=== PATIENT | female | born 1930 | race Caucasian/White ===

== ENCOUNTER 2017-01-15 18:45 | Inpatient (IN) ==
[2017-01-15] MEDS ORDERED: SALINE FLUSH 10ml SYRINGE IVF PRN (19:12)
--- OUTSIDE RECORDS SUMMARY | 2017-01-15 20:00 | External Medical Summary | Referral Summary ---
:1930 Author Organization [facility] Address [address] [place] [address] Care Team Providers Name Role Phone Quita Schwab Primary Care Physician Encounter [facility] [phone] Date(s): 04/30/16 - 04/30/16 [facility] [address] [place], [place] [address] Final: Dyspnea, unspecified Final: Chronic obstructive pulmonary disease, unspecified Final: Other specified deforming dorsopathies, thoracic region Discharge Disposition: 01-Home or Self Care Attending Physician: Quita Schwab DO Admitting Physician: Quita Schwab DO Vital Signs No data available for this section Problem List No data available for this section Allergies, Adverse Reactions, Alerts No data available for this section Medications No data available for this section Results No data available for this section Immunizations No data available for this section Procedures No data available for this section Social History No data available for this section Assessment and Plan No data available for this section
--- OUTSIDE RECORDS SUMMARY | 2017-01-15 20:00 | External Medical Summary | Referral Summary ---
:1930 Author Organization [facility] Address [address] [place] [address] Care Team Providers Name Role Phone Quita Schwab Primary Care Physician Encounter [facility] Date(s): 09/26/16 - 09/26/16 [facility] [address] [place] [id number] - [place] Discharge Diagnosis: Chest wall pain Discharge Disposition: 01-Home or Self Care Attending Physician: Sandra Edwards MD Attending Physician: Provider, Immediate Care Admitting Physician: Provider, Immediate Care Vital Signs Most recent to oldest [Reference Range]: 1 Temperature Oral [35.8-37.3 degC] 36.6 degC (09/26/16 1:38 PM) Peripheral Pulse Rate [60-100 bpm] 112 bpm *HI* (09/26/16 1:38 PM) Blood Pressure [90-140/60-90 mmHg] 120/68mmHg (09/26/16 1:38 PM) SpO2 95 % (09/26/16 1:38 PM) Problem List No data available for this section Allergies, Adverse Reactions, Alerts No Known Medication Allergies Medications amLODIPine Oral, Daily, 0 Refill(s) Start Date: 09/26/16 Status: OrderedAnoro Ellipta puffs, Inhalation, Daily, 0 Refill(s) Start Date: 09/26/16 Status: OrderedAspir 81 mg, Oral, Daily, 0 Refill(s) Start Date: 09/26/16 Status: OrderedCeleBREX Oral, 0 Refill(s) Start Date: 09/26/16 Status: Orderedhydrochlorothiazide Oral, Daily, 0 Refill(s) Start Date: 09/26/16 Status: OrderedVitamin D with Minerals oral tablet tabs, Oral, Daily, 0 Refill(s) Start Date: 09/26/16 Status: Ordered Results No data available for this section Immunizations No data available for this section Procedures No data available for this section Social History Social History Type Response Smoking Status Never smoker Assessment and Plan Extracted from: Title:Office Visit Note Author:Sandra Edwards MD Date:09/26/16 Assessment/Plan 1.Chest wall pain Radiology Results XR Chest 2 Views 09/26/16 17:19:35 IMPRESSION: 1. Chronic changes throughout the lungs with emphysematous disease also noted. 2. Possible atelectasis in the mid lungs with tiny effusions also noted better seen on the lateral views. Dictated on workstation:[id number] Signed By: Della Shell MD Results discussed with patient, she was verbally understanding,symptomatic treatment is recommended,she was given prescription of Celebrex by her PCP, she is to start taking it to be used as directed Diagnosis and plan discussed with patient, was verbally understanding, agreeable about the plan of care, patient was discharged in stable condition, to go to the emergency room of there is worsenin g signs and symptoms otherwise follow-up with PCP in 1-2 days, questions has been answered. Ordered: Office Visit Level 3 Est [id number]
--- NOTE | 2017-01-15 20:27 | Emergency Department Report ---
Psych HPI - General Chief Complaint: Psychiatric Symptoms Stated Complaint: Psych Eval Time Seen by Provider: 01/15/17 20:23 Source: patient Mode of arrival: wheelchair Limitations: no limitations - History of Present Illness HPI Narrative: She arrives to Er today with her family. Is here for medical clearance for generation admission. She had surgery on 10/23/16 for mitro clip placement. Had returned to her own home but was re-hospitalized on 12/18/16. Was send from the hospital where she had a thoracentesis to a skilled bed at [facility] on 01/08/17. Has had increasing agitation and some visual hallucinations. Has made 911 calls and falsely reporting that her daughter was in danger. Per records sent with patient she walked into the hallway yesterday and was very agitated. Laid down on the floor and then refused to move. MD complaint: altered mental status Onset (ago): week(s) Duration: getting worse Prior Hospitalization: Yes Relieving factors: none Exacerbating factors: none Associated psychiatric symptoms: other (agitation) Associated symptoms: confusion Treatments prior to arrival: none - Related Data Home Medications Medication Instructions Recorded Confirmed Acetaminophen 650 mg PO Q4H PRN 01/15/17 01/15/17 Albuterol/Ipratropium [Duoneb] 3 ml IH BID 01/15/17 01/15/17 Albuterol/Ipratropium [Duoneb] 3 ml IH Q2H PRN 01/15/17 01/15/17 Apixaban [Eliquis] 2.5 mg PO BID 01/15/17 01/15/17 Aspirin [Aspirin EC] 81 mg PO DAILY 01/15/17 01/15/17 Benzonatate [Tessalon Perles] 100 mg PO BID 01/15/17 01/15/17 Bisacodyl Supp [Dulcolax] 10 mg RECTALLY DAILY PRN 01/15/17 01/15/17 Cholecalciferol [Vitamin D-3] 1,000 unit PO DAILY 01/15/17 01/15/17 Docusate Sodium [Colace] 100 mg PO BID 01/15/17 01/15/17 Ferrous Sulfate [Iron] 325 mg PO BID 01/15/17 01/15/17 Furosemide [Lasix] 60 mg PO DAILY 01/15/17 01/15/17 Megestrol Oral Liq [Megace] 20 ml PO DAILY 01/15/17 01/15/17 Melatonin 3 mg PO HS 01/15/17 01/15/17 Milk of Magnesia [Mom] 30 ml PO PRN PRN 01/15/17 01/15/17 Omeprazole [Prilosec] 1 cap PO ACB 01/15/17 01/15/17 Pantoprazole Sodium [Protonix] 40 mg PO DAILY 01/15/17 01/15/17 Polyethylene Glycol 3350 [Miralax] 17 gm PO DAILY 01/15/17 01/15/17 Potassium Chloride 20 meq PO BID 01/15/17 01/15/17 Quetiapine [Seroquel] 12.5 mg PO BID 01/15/17 01/15/17 Quetiapine [Seroquel] 12.5 mg PO DAILY 01/15/17 01/15/17 Quetiapine [Seroquel] 25 mg PO HS 01/15/17 01/15/17 Trolamine Salicylate 10% Cream 1 applic TOP Q8H PRN 01/15/17 01/15/17 [Aspercreme] acetaZOLAMIDE [Acetazolamide] 500 mg PO DAILY 01/15/17 01/15/17 dilTIAZem HCl [Diltiazem ER] 180 mg PO DAILY 01/15/17 01/15/17 guaiFENesin [Mucinex] 600 mg PO BID 01/15/17 01/15/17 Allergies Allergy/AdvReac Type Severity Reaction Status Date / Time No Known Allergies Allergy Verified 01/15/17 20:20 Review of Systems Constitutional: Denies: fever, chills, weakness, weight change ENT: Denies: ear pain, throat pain, congestion Cardiovascular: Denies: chest pain, palpitations, dyspnea on exertion, edema Respiratory: Denies: cough, dyspnea, wheezes Gastrointestinal: Denies: abdominal pain, nausea, vomiting, diarrhea, constipation Neurological: Denies: headache, weakness, numbness PFSH Patient Stated Medical History Transient Ischemic Attacks ( INCREASING CONFUSION TIA) Other Neurological: Yes Cataracts Yes: REPAIRED Other HEENT Yes: BLIND R EYE Cardiac Arrhythmia Yes Congestive Heart Failure Yes Chronic Obstructive Pulmonary Yes Disease (COPD) Hiatal Hernia Yes Other GI Yes: SLOW ESOPHAGEAL MOTILITY Osteoarthritis Yes Other Infectious Yes: HEP B 1980 atrial fibrillation osteoporosis HTN hyperlipidemia chronic hypoxia and hypercapnic resp failure Hepatitis B Diastolic HF Esophageal dysmotility Surgical History: Bilateral femur fracture repair. cholecystectomy. total hysterectomy. breast lumpectomy. mitraclip x2 on 11/27/2016. Right thoracentesis on 12/28/16. right 5th finger surgery Smoking status: Never smoker Physical Exam - Limitations Limitations: altered mental status, other (History is taken from her daughter) - General General appearance: alert, in no apparent distress - Normal Exams: Eyes:: Pupils are PERRLA w/ EOMI, No scleral icterus, irritation, or foreign bodies noted ENMT:: No facial trauma, nasal exudates, pharyngeal erythema, or exudates are noted Neck:: Full range of motion, without adenopathy, JVD, bruits or thyromegaly Chest/Respirations:: Clear all tamayo, with good airflow, and symmetry bilaterally Cardiovascular:: Regular rate and rhythm, without murmur or gallop, Pulses 2+ all extremities, capillary refill, <2 seconds all extremities Abdomen:: Bowel sounds positive, soft, non-tender, non-distended, no hepatosplenomegaly, masses or bruits noted Lymphatic:: No lymphadenopathy, or lymphedema noted Integumentary:: No rashes, hives, or bruising noted Neurological:: Patient is alert Psychiatric:: Patient exhibits, appropriate attention, emotion and affect Course Vital Signs Temperature 98.4 F 01/15/17 19:00 Pulse Rate 94 01/15/17 19:00 Respiratory Rate 16 01/15/17 19:00 Blood Pressure 112/65 01/15/17 19:00 Temperature 98.4 F 01/15/17 19:00 Pulse Rate 89 01/15/17 20:32 Respiratory Rate 16 01/15/17 19:00 Blood Pressure 99/55 01/15/17 20:33 Pulse Oximetry 95 01/15/17 20:32 Psych - MDM Narrative Medical decision making narrative: CBC, BMP, UA, and UDS today are normal. EKG without ST changes. Noted atrial fibrillation, she does have history of this and is on Eliquis. Patient is medically cleared for [facility] unit. - Differential Diagnosis Likely: chronic schizophrenia, depression, acute anxiety - Lab Data Attestation: I reviewed the patient's lab results. Result diagrams: 01/15/17 19:33 01/15/17 19:33 Lab Results 01/15/17 01/15/17 01/15/17 Range/Units 19:33 19:33 19:33 WBC 11.2 H (4.5-11.0) T/MM3 RBC 3.26 L (4.00-5.20) M/MM3 Hgb 9.7 L (12-16) GM/DL Hct 33.3 L (36-46) % MCV 102.1 H (80-100) UM3 MCH 29.8 (26-34) UUG MCHC 29.1 L (31-37) GM/DL RDW Std Deviation 60.1 H (36.9-50.2) FL Plt Count 308 (130-400) T/MM3 MPV 10.6 (9.4-12.4) UM3 Immature Gran % (Auto) 0.3 (0.0-0.5) % Neut % (Auto) 81.7 H (33-66) % Lymph % (Auto) 9.0 L (23-45) % Elk % (Auto) 7.5 (0-9.0) % Eos % (Auto) 1.1 (0-4) % Baso % (Auto) 0.4 (0-2) % Neut # 9.2 H (1.8-7.7) T/MM3 Lymph # 1.0 (1-4.8) T/MM3 Elk # 0.8 (0-0.8) T/MM3 Eos # 0.1 (0-0.5) T/MM3 Baso # 0.0 (0-0.2) T/MM3 Abs Immat Gran (auto) 0.03 (0.00-0.03) T/MM3 Turbidity 20 (0-20) Sodium 143 (134-144) MEQ/L Potassium 3.7 (3.6-5) MEQ/L Chloride 102 (98-107) MEQ/L Carbon Dioxide 28 (22-30) MEQ/L Anion Gap 13 (5-15) MEQ/L BUN 35.0 H (7-17) MG/DL Creatinine 1.4 H (0.7-1.2) MG/DL GFR Calculation 36 BUN/Creatinine Ratio 25 (6-26) RATIO Glucose 114 H (65-110) MG/DL Calculated Osmolality 284 H (261-280) MOSM/KG Calcium 8.7 (8.4-10.2) MG/DL Total Bilirubin 0.30 (0.20-1.30) MG/DL Icterus Index 2 (0-7) AST 24 (14-36) U/L ALT 40 (9-52) U/L Alkaline Phosphatase 72 (38-126) U/L Total Protein 6.6 (6.3-8.2) G/DL Albumin 3.9 (3.5-5.0) G/DL Globulin 2.7 (2.4-3.6) G/DL Albumin/Globulin Ratio 1.4 (1.1-2.2) RATIO Specimen Hemolysis 15 (0-25) Ur Collection Type Urine, clean catch Urine Color Yellow (YELLOW) Urine Clarity Clear Urine pH 7.0 (5.0-8.0) Ur Specific [place] 1.010 L (1.015-1.025) Urine Protein Negative (NEGATIVE) Urine Glucose (UA) Negative (NEGATIVE) Urine Ketones Negative (NEGATIVE) Urine Occult Blood Negative (NEGATIVE) Urine Nitrate Negative (NEGATIVE) Urine Bilirubin Negative (NEGATIVE) Urine Urobilinogen 1.0 (NORMAL) EU/DL Ur Leukocyte Esterase Trace A (NEGATIVE) Urinalysis Comment Microscopic not ind. Salicylates < 1 L (2-20) MG/DL Urine Opiates Screen ng/mL Ur Oxycodone Screen ng/mL Urine Methadone Screen ng/mL Ur Propoxyphene Screen ng/mL Acetaminophen < 10 Ur Barbiturates Screen ng/mL U Tricyclic Antidepress ng/mL Ur Phencyclidine Scrn ng/mL Ur Amphetamines Screen ng/mL U Methamphetamines Scrn ng/mL U Benzodiazepines Scrn ng/mL Urine Cocaine Screen ng/mL U Cannabinoids Screen ng/mL Ethyl Alcohol < 10 01/15/17 Range/Units 19:33 WBC (4.5-11.0) T/MM3 RBC (4.00-5.20) M/MM3 Hgb (12-16) GM/DL Hct (36-46) % MCV (80-100) UM3 MCH (26-34) UUG MCHC (31-37) GM/DL RDW Std Deviation (36.9-50.2) FL Plt Count (130-400) T/MM3 MPV (9.4-12.4) UM3 Immature Gran % (Auto) (0.0-0.5) % Neut % (Auto) (33-66) % Lymph % (Auto) (23-45) % Elk % (Auto) (0-9.0) % Eos % (Auto) (0-4) % Baso % (Auto) (0-2) % Neut # (1.8-7.7) T/MM3 Lymph # (1-4.8) T/MM3 Elk # (0-0.8) T/MM3 Eos # (0-0.5) T/MM3 Baso # (0-0.2) T/MM3 Abs Immat Gran (auto) (0.00-0.03) T/MM3 Turbidity (0-20) Sodium (134-144) MEQ/L Potassium (3.6-5) MEQ/L Chloride (98-107) MEQ/L Carbon Dioxide (22-30) MEQ/L Anion Gap (5-15) MEQ/L BUN (7-17) MG/DL Creatinine (0.7-1.2) MG/DL GFR Calculation BUN/Creatinine Ratio (6-26) RATIO Glucose (65-110) MG/DL Calculated Osmolality (261-280) MOSM/KG Calcium (8.4-10.2) MG/DL Total Bilirubin (0.20-1.30) MG/DL Icterus Index (0-7) AST (14-36) U/L ALT (9-52) U/L Alkaline Phosphatase (38-126) U/L Total Protein (6.3-8.2) G/DL Albumin (3.5-5.0) G/DL Globulin (2.4-3.6) G/DL Albumin/Globulin Ratio (1.1-2.2) RATIO Specimen Hemolysis (0-25) Ur Collection Type Urine Color (YELLOW) Urine Clarity Urine pH (5.0-8.0) Ur Specific [place] (1.015-1.025) Urine Protein (NEGATIVE) Urine Glucose (UA) (NEGATIVE) Urine Ketones (NEGATIVE) Urine Occult Blood (NEGATIVE) Urine Nitrate (NEGATIVE) Urine Bilirubin (NEGATIVE) Urine Urobilinogen (NORMAL) EU/DL Ur Leukocyte Esterase (NEGATIVE) Urinalysis Comment Salicylates (2-20) MG/DL Urine Opiates Screen Negative ng/mL Ur Oxycodone Screen Negative ng/mL Urine Methadone Screen Negative ng/mL Ur Propoxyphene Screen Negative ng/mL Acetaminophen Ur Barbiturates Screen Negative ng/mL U Tricyclic Antidepress Positive ng/mL Ur Phencyclidine Scrn Negative ng/mL Ur Amphetamines Screen Negative ng/mL U Methamphetamines Scrn Negative ng/mL U Benzodiazepines Scrn Negative ng/mL Urine Cocaine Screen Negative ng/mL U Cannabinoids Screen Negative ng/mL Ethyl Alcohol Disposition Clinical Impression: Dementia with behavioral disturbance Qualifiers: Dementia type: unspecified type Qualified Code(s): F03.91 - Unspecified dementia with behavioral disturbance Disposition: 65 To [facility] Condition: Stable Prescriptions: No Action acetaZOLAMIDE [Acetazolamide] 500 mg PO DAILY dilTIAZem HCl [Diltiazem ER] 180 mg PO DAILY Furosemide [Lasix] 60 mg PO DAILY Omeprazole [Prilosec] 1 cap PO ACB Megestrol Oral Liq [Megace] 20 ml PO DAILY Polyethylene Glycol 3350 [Miralax] 17 gm PO DAILY Pantoprazole Sodium [Protonix] 40 mg PO DAILY Quetiapine [Seroquel] 25 mg PO HS Albuterol/Ipratropium [Duoneb] 3 ml IH BID Docusate Sodium [Colace] 100 mg PO BID Apixaban [Eliquis] 2.5 mg PO BID Cholecalciferol [Vitamin D-3] 1,000 unit PO DAILY Potassium Chloride 20 meq PO BID Quetiapine [Seroquel] 12.5 mg PO BID Benzonatate [Tessalon Perles] 100 mg PO BID Trolamine Salicylate 10% Cream [Aspercreme] 1 applic TOP Q8H PRN PRN Reason: Pain Albuterol/Ipratropium [Duoneb] 3 ml IH Q2H PRN PRN Reason: Shortness Of Air Melatonin 3 mg PO HS Acetaminophen 650 mg PO Q4H PRN PRN Reason: Pain Aspirin [Aspirin EC] 81 mg PO DAILY Quetiapine [Seroquel] 12.5 mg PO DAILY Ferrous Sulfate [Iron] 325 mg PO BID guaiFENesin [Mucinex] 600 mg PO BID Bisacodyl Supp [Dulcolax] 10 mg RECTALLY DAILY PRN PRN Reason: Constipation Milk of Magnesia [Mom] 30 ml PO PRN PRN PRN Reason: Constipation Time of Disposition: 20:44 - Seen By: tamera
[2017-01-15] MEDS ORDERED: HALOPERIDOL 5 MG/ML INJECTION IM PRN (22:18)
[2017-01-15] MEDS ORDERED: HALOPERIDOL 0.5 MG TABLET PO PRN (22:18)
[2017-01-15] MEDS ORDERED: IPRATROPIUM/ALBUTEROL 2.5mg-0.5mg/3ml NEB IH PRN (22:47)
[2017-01-15] MEDS ORDERED: BISACODYL 10 MG SUPPOSITORY RECTALLY PRN (22:47)
[2017-01-15] MEDS ORDERED: ACETAMINOPHEN 325 MG TABLET PO PRN (22:47)
[2017-01-16] MEDS: OMEPRAZOLE 20 MG CAPSULE PO SCH (05:52)
[2017-01-16] MEDS: FUROSEMIDE 40 MG TABLET PO SCH (08:10)
[2017-01-16] MEDS: DOCUSATE SODIUM 100 MG CAPSULE PO SCH ×2 (08:10→21:12)
[2017-01-16] MEDS: acetaZOLAMIDE SR 500 MG CAPSULE PO SCH (08:11)
[2017-01-16] MEDS: ASPIRIN *EC* 81 MG TABLET PO SCH (08:11)
[2017-01-16] MEDS: APIXABAN 5 MG TABLET PO SCH ×2 (08:11→21:14)
[2017-01-16] MEDS: BENZONATATE 100 MG CAPSULE PO SCH ×2 (08:11→21:12)
[2017-01-16] MEDS: FERROUS SULFATE 324 MG TABLET PO SCH ×2 (08:12→17:12)
[2017-01-16] MEDS: GUAIFENESIN LA 600 MG TABLET PO SCH ×2 (08:12→21:15)
[2017-01-16] MEDS: QUETIAPINE 25 MG TABLET PO SCH ×2 (08:13→21:18)
[2017-01-16] MEDS: POLYETHYL GLYCOL 3350 17gm PACKET PO SCH (08:13)
[2017-01-16] MEDS: IPRATROPIUM/ALBUTEROL 2.5mg-0.5mg/3ml NEB IH SCH ×2 (08:43→19:43)
[2017-01-16] MEDS ORDERED: MEGESTROL 800mg/20ml ORAL LIQUID PO SCH (09:00)
--- NOTE | 2017-01-16 09:34 | History & Physical Report ---
<Cat Harrison V - Last Filed: 01/16/17 09:25> History of Present Illness Date: Chief complaint: major cognitive disorder, increase behaviors and hallucinations HPI: Patient is an 86-year-old female who underwent Joshua clip placement, October 23, 2016. Following this procedure, she did return to her home independently. In December she was ill and hospitalized at [facility] with what appears to be diastolic heart failure and pleural effusions. She did undergo thoracentesis. Total hospitalization was December 18 through December 23. At time of discharge, patient was sent to [facility]. Since that time she has displayed increased confusion, uncooperative and argumentative. She has called 911 multiple times and also called multiple food safety technician attorneys when given a phone book. Due to her increasing hallucinations and agitation. She was brought to [facility] emergency room for medical clearance followed by accepted to the generations unit for further psychiatric evaluation and treatment Review of Systems All systems: reviewed and no additional remarkable complaints except as stated Review of systems: Only positive ROS include- "feeling tired". Otherwise she denies all ROS. Unknown if this is accurate due to mentation - Constitutional Constitutional: Present: fatigue PFSH Patient Stated Medical History hx- Transient Ischemic Attacks Diastolic heart failure, EF 65%, echocardiogram 01/03/17 Chronic atrial fibrillation with chronic anticoagulation. Hypertension hyperlipidemia Chronic hypoxia on oxygen and CPAP COPD Osteoarthritis. Hiatal hernia. History of hepatitis B-1979 Surgical History: Bilateral femur fracture repair. cholecystectomy. total hysterectomy. breast lumpectomy. mitraclip x2 on 11/27/2016. Right thoracentesis on 12/28/16. right 5th finger surgery. Right thoracentesis- Dr. Witt Smoking status: Former smoker Housing: halfway Social history: PCP Dr Powell ([place]) [employer]ist Dr. Booth- Follow up apt on 01/27 Medications Home Medications Medication Instructions Recorded Confirmed Type Acetaminophen 650 mg PO Q4H PRN 01/15/17 01/15/17 History Albuterol/Ipratropium [Duoneb] 3 ml IH BID 01/15/17 01/15/17 History Albuterol/Ipratropium [Duoneb] 3 ml IH Q2H PRN 01/15/17 01/15/17 History Apixaban [Eliquis] 2.5 mg PO BID 01/15/17 01/15/17 History Aspirin [Aspirin EC] 81 mg PO DAILY 01/15/17 01/15/17 History Benzonatate [Tessalon Perles] 100 mg PO BID 01/15/17 01/15/17 History Bisacodyl Supp [Dulcolax] 10 mg RECTALLY DAILY PRN 01/15/17 01/15/17 History Cholecalciferol [Vitamin D-3] 1,000 unit PO DAILY 01/15/17 01/15/17 History Docusate Sodium [Colace] 100 mg PO BID 01/15/17 01/15/17 History Ferrous Sulfate [Iron] 325 mg PO BID 01/15/17 01/15/17 History Furosemide [Lasix] 60 mg PO DAILY 01/15/17 01/15/17 History Megestrol Oral Liq [Megace] 20 ml PO DAILY 01/15/17 01/15/17 History Melatonin 3 mg PO HS 01/15/17 01/15/17 History Milk of Magnesia [Mom] 30 ml PO PRN PRN 01/15/17 01/15/17 History Omeprazole [Prilosec] 1 cap PO ACB 01/15/17 01/15/17 History Pantoprazole Sodium [Protonix] 40 mg PO DAILY 01/15/17 01/15/17 History Polyethylene Glycol 3350 [Miralax] 17 gm PO DAILY 01/15/17 01/15/17 History Potassium Chloride 20 meq PO BID 01/15/17 01/15/17 History Quetiapine [Seroquel] 12.5 mg PO BID 01/15/17 01/15/17 History Quetiapine [Seroquel] 12.5 mg PO DAILY 01/15/17 01/15/17 History Quetiapine [Seroquel] 25 mg PO HS 01/15/17 01/15/17 History Trolamine Salicylate 10% Cream 1 applic TOP Q8H PRN 01/15/17 01/15/17 History [Aspercreme] acetaZOLAMIDE [Acetazolamide] 500 mg PO DAILY 01/15/17 01/15/17 History dilTIAZem HCl [Diltiazem ER] 180 mg PO DAILY 01/15/17 01/15/17 History guaiFENesin [Mucinex] 600 mg PO BID 01/15/17 01/15/17 History Allergies Allergy/AdvReac Type Severity Reaction Status Date / Time No Known Allergies Allergy Verified 01/15/17 20:20 Exam Vital Signs: Temp Pulse Resp BP Pulse Ox 98.8 F 109 H 18 122/75 100 01/16/17 08:00 01/16/17 08:00 01/16/17 08:00 01/16/17 08:00 01/16/17 08:00 Height: 1.47 m Weight: 47.5 kg Body Mass Index: 21.9 - Constitutional Present: no acute distress - Routine HEENT Exam Eye: Present: EOMI, PERRL ENT: Present: mucous membranes moist - Routine Neck Exam Present: full ROM - Routine Respiratory Exam Present: CTA bilaterally - Routine Cardiovascular Exam Present: RRR, S1, S2 - Routine Abdominal Exam Present: soft, normoactive bowel sounds - Routine Back/Spine/Pelvis Exam Back/Spine: Present: full ROM - Routine Skin Exam Present: intact - Routine Neurological Exam Present: alert, CN II-XII intact - Routine Psychiatric Exam Present: normal affect Results - Labs CBC & Chem 7: 01/15/17 19:33 01/15/17 19:33 Assessment and Plan (1) Neurocognitive disorder Current visit: Yes Status: Acute (2) Hx of pleural effusion Current visit: Yes Status: Acute (3) Coronary artery disease Current visit: Yes Status: Acute (4) A-fib Current visit: Yes Status: Acute (5) Chronic anticoagulation Current visit: Yes Status: Acute (6) Diastolic heart failure Current visit: Yes Status: Acute (7) Anemia Current visit: Yes Status: Acute (8) Mitral regurgitation Current visit: Yes Status: Acute (9) HTN (hypertension) Current visit: Yes Status: Acute Assessment and Plan: Agree with admission to [facility] unit for further psychiatric evaluation and treatment. Continue on chronic oxygen at 4 liters by nasal cannula as well as CPAP at night. Continue with scheduled DuoNeb breathing treatments twice a day Chronic cardiac medications including Lasix 60 milligrams daily, Cardizem 180 milligrams daily Continue chronic anticoagulation, Eliquis 2.5 milligrams twice a day Encourage patient to participate in unit activities and provide a safe environment. Sepsis Assessment - Evaluation Sepsis screening result: No Definite Risk - Focused Exam Vital Signs Temp Pulse Resp BP Pulse Ox 01/16/17 08:00 98.8 F 109 H 18 122/75 100 01/15/17 23:20 98.0 F 90 16 87 L 01/15/17 21:44 98.0 F 95 20 136/73 96 Hospital Course Summary Disclaimer: The visit summary below is not to be considered part of the above Progress Note. Hospital Course: 01/16/17 09:56 Agree with admission to [facility] unit for further psychiatric evaluation and treatment. Continue on chronic oxygen at 4 liters by nasal cannula as well as CPAP at night. Continue with scheduled DuoNeb breathing treatments twice a day Chronic cardiac medications including Lasix 60 milligrams daily, Cardizem 180 milligrams daily Continue chronic anticoagulation, Eliquis 2.5 milligrams twice a day Encourage patient to participate in unit activities and provide a safe environment. <Stefano Mtz - Last Filed: 01/16/17 18:41> History of Present Illness Date: [facility] Patient Stated Medical History Transient Ischemic Attacks ( INCREASING CONFUSION TIA) Other Neurological: Yes Cataracts Yes: REPAIRED Other HEENT Yes: BLIND R EYE Cardiac Arrhythmia Yes Congestive Heart Failure Yes Chronic Obstructive Pulmonary Yes Disease (COPD) Hiatal Hernia Yes Other GI Yes: SLOW ESOPHAGEAL MOTILITY Osteoarthritis Yes Other Infectious Yes: HEP B 1980 Exam Vital Signs: Temp Pulse Resp BP Pulse Ox 98.4 F 82 16 94/53 94 01/16/17 16:00 01/16/17 16:00 01/16/17 15:20 01/16/17 16:00 01/16/17 16:00 Height: 4 ft 10 in Weight: 47.5 kg Results - Labs CBC & Chem 7: 01/15/17 19:33 01/15/17 19:33 Assessment and Plan (1) Neurocognitive disorder Current visit: Yes Status: Acute (2) Hx of pleural effusion Current visit: Yes Status: Acute (3) Coronary artery disease Current visit: Yes Status: Acute (4) A-fib Current visit: Yes Status: Acute (5) Chronic anticoagulation Current visit: Yes Status: Acute (6) Diastolic heart failure Current visit: Yes Status: Acute (7) Anemia Current visit: Yes Status: Acute (8) Mitral regurgitation Current visit: Yes Status: Acute (9) HTN (hypertension) Current visit: Yes Status: Acute Assessment and Plan: Pt seen and examined agree with above. Pt has HSusanO Thyroid disease and apparently acute anemia. Will check labs for her acute anemia. She is on Iron so probably she was iron deficient in the past. Unknown when was her last Colonoscopy. Sepsis Assessment - Focused Exam Vital Signs Temp Pulse Resp BP Pulse Ox 01/16/17 16:00 98.4 F 82 94/53 94 01/16/17 15:20 16 98 01/16/17 08:51 20 91 01/16/17 08:00 98.8 F 109 H 18 122/75 100 Hospital Course Summary Disclaimer: The visit summary below is not to be considered part of the above Progress Note.
--- NOTE | 2017-01-16 11:23 | 24 Hour Neuropsychiatic Eval ---
Date of Admission: 01/15/17 21:11 Chief complaint: "I'm here to get better" History of Present Illness: HPI: 86 y/o CF with a hx of COPD and heart disease sent from a rehab facility for increasing confusion, agitation, impulsiveness and VH. Pt reportedly had surgery in November and then went back to the hospital in December for heart failure. At discharge pt was sent to a SNU but began to have the confusion and increase in behaviors. Nursing reports this AM the pt was alert and was asking about a psychiatrist because "my daughter needs help". Pt believed her daughter was being "brain washed" and appeared quiet delusional. On face to face with this newswriter the pt was lethargic and would not open her eyes. Her speech was mumbled. PT was only oriented to self. She states she is here to "get better" but was not able to give me any other details. PSYCH ROS: Unable to obtain at this time due to the patients mental state. PT is confused and only oriented to self. [facility] Patient Stated Medical History Transient Ischemic Attacks ( INCREASING CONFUSION TIA) Other Neurological: Yes Cataracts Yes: REPAIRED Other HEENT Yes: BLIND R EYE Cardiac Arrhythmia Yes Congestive Heart Failure Yes Chronic Obstructive Pulmonary Yes Disease (COPD) Hiatal Hernia Yes Other GI Yes: SLOW ESOPHAGEAL MOTILITY Osteoarthritis Yes Other Infectious Yes: HEP B 1979 Surgical History: Bilateral femur fracture repair. cholecystectomy. total hysterectomy. breast lumpectomy. mitraclip x2 on 11/27/2016. Right thoracentesis on 12/28/16. right 5th finger surgery. Right thoracentesis- Dr. Witt Smoking status: Former smoker Review of Systems ROS unobtainable: due to mental status - Constitutional Constitutional: Present: fatigue Mental Status Exam Vitals: Last Vital Signs Temp 98.8 F 01/16/17 08:00 Pulse 109 H 01/16/17 08:00 Resp 20 01/16/17 08:51 BP 122/75 01/16/17 08:00 Pulse Ox 91 01/16/17 08:51 Height: 1.47 m Weight: 47.5 kg - Mental Status Exam Muscle Strength/Tone: Normal Dressing: Casual Grooming: Fair Attitude: Cooperative Motor Activity: Retardation Eye Contact: Poor Speech: Slowed Volume: Soft Rhythm: Slurred Orientation: Oriented to person Mood: Neutral Rate of Thoughts: Delayed Thought Organization: [place] Associations: Illogical Abstract Reasoning: Poor abstract reasoning Thought Content: Delusions Perception/Psychotic: Hx psychosis, not current Fund of Knowledge: Poor fund of knowledge Memory: Poor-immediate, Poor-recent Suicidal Ideation: None Homicidal Ideation: None Insight: Poor Judgement: Poor Impulse Control: Poor - Laboratory Result Diagrams: 01/15/17 19:33 01/15/17 19:33 Laboratory Results - last 24 hr 01/16/17 06:55 Hemoglobin A1c 5.7 L Prealbumin 23.6 Assessment and Plan (1) Major neurocognitive disorder Current visit: Yes Status: Acute Will continue home meds at this time. D/C Megase as family felt it made behaviors worse. We will continue to monitor. Review labs and imaging. Hospitalist to follow (2) A-fib Current visit: Yes Status: Acute (3) Coronary artery disease Current visit: Yes Status: Acute (4) Diastolic heart failure Current visit: Yes Status: Acute (5) HTN (hypertension) Current visit: Yes Status: Acute
[2017-01-16] MEDS: MELATONIN 1 MG TABLET PO SCH (21:16)
[2017-01-16] MEDS: LORazepam 0.5 MG TABLET PO PRN (22:36)
[2017-01-17] MEDS: OMEPRAZOLE 20 MG CAPSULE PO SCH (06:02)
[2017-01-17] MEDS ORDERED: PANTOPRAZOLE 40 MG TABLET PO SCH (06:30)
[2017-01-17] MEDS: QUETIAPINE 25 MG TABLET PO SCH ×2 (09:04→20:38)
[2017-01-17] MEDS: FUROSEMIDE 40 MG TABLET PO SCH (09:04)
[2017-01-17] MEDS: acetaZOLAMIDE SR 500 MG CAPSULE PO SCH (09:05)
[2017-01-17] MEDS: ASPIRIN *EC* 81 MG TABLET PO SCH (09:05)
[2017-01-17] MEDS: BENZONATATE 100 MG CAPSULE PO SCH ×2 (09:05→20:34)
[2017-01-17] MEDS: GUAIFENESIN LA 600 MG TABLET PO SCH ×2 (09:05→20:34)
[2017-01-17] MEDS: FERROUS SULFATE 324 MG TABLET PO SCH ×2 (09:05→17:52)
[2017-01-17] MEDS: DOCUSATE SODIUM 100 MG CAPSULE PO SCH ×2 (09:13→20:34)
[2017-01-17] MEDS: POLYETHYL GLYCOL 3350 17gm PACKET PO SCH (09:14)
[2017-01-17] MEDS: APIXABAN 5 MG TABLET PO SCH ×2 (09:21→20:35)
[2017-01-17] MEDS: IPRATROPIUM/ALBUTEROL 2.5mg-0.5mg/3ml NEB IH SCH ×2 (10:03→21:10)
--- NOTE | 2017-01-17 10:18 | Progress Note ---
Subjective: Laura is seen this morning in follow up for her dementia and a-fib. She denies any complaints or concerns and states that overall she is doing well. She denies any chest pain, shortness of breath, abdominal pain, nausea, vomiting or dysuria. She states that her appetite is good and her bowels are moving. Nursing was present on exam and states that her answers to questions were not always accurate (ie. stating that she is not usually on constant O2 but in fact is always on 4L NC). Nursing also reports that she seems much more cognitively aware and alert today than previously and seems to be making improvement. Her appetite is good and bowels are moving. On exam, she is seen ambulating easily, without nursing assistance, out of her room with her walker following her morning shower. She is alert to self and cooperative on exam. Cardiac exam reveals irregularly irregular heart rate and rhythm which is consistent with her history of a-fib. Rate on exam was 102. Lungs are diminished bilaterally with poor inspiratory effort. She is noted to be very thin and kyphotic. Abdomen is soft, nontender with active bowel sounds. 1+ edema noted to bilateral lower extremities. Objective Vital signs: Temp Pulse Resp BP Pulse Ox 97.6 F 105 H 20 118/73 97 01/17/17 08:00 01/17/17 08:00 01/17/17 09:50 01/17/17 08:00 01/17/17 09:50 Body Mass Index: 21.9 - Constitutional Present: no acute distress, thin, cooperative - Routine HEENT Exam Head: Present: normocephalic, atraumatic Eye: Absent: conjunctival icterus ENT: Present: mucous membranes moist - Routine Respiratory Exam Present: decreased breath sounds. Absent: accessory muscle use, respiratory distress, rhonchi, stridor, wheezes, crackles Comments: patient on 4L NC with no signs of distress. - Routine Cardiovascular Exam Present: irregularly irregular Comments: rate controlled. - Routine Abdominal Exam Present: soft, normoactive bowel sounds, non distended. Absent: tenderness - Routine Extremities Exam Present: edema, non tender, full ROM, normal capillary refill. Absent: calf tenderness - Routine Musculoskeletal Exam Musculoskeletal: no tenderness - Routine Skin Exam Present: intact, dry, warm. Absent: erythema - Routine Neurological Exam Present: alert, moving all extremities, normal speech - Routine Lymphatic Exam Lymphatic: Absent: lymphedema - Routine Psychiatric Exam Present: normal affect, cooperative Results - Labs CBC & Chem 7: 01/15/17 19:33 01/15/17 19:33 Assessment and Plan (1) Neurocognitive disorder Current visit: Yes Status: Acute (2) Hx of pleural effusion Current visit: Yes Status: Acute (3) Coronary artery disease Current visit: Yes Status: Acute (4) A-fib Current visit: Yes Status: Acute (5) Chronic anticoagulation Current visit: Yes Status: Acute (6) Diastolic heart failure Current visit: Yes Status: Acute (7) Anemia Current visit: Yes Status: Acute (8) Mitral regurgitation Current visit: Yes Status: Acute (9) HTN (hypertension) Current visit: Yes Status: Acute Assessment and Plan: Overall, Pam appears to be doing well and improving. Continue psychiatric care per Dr. Mills and team. Vital signs remain stable. Cardiac exam revealed irregularly irregular heart rate/rhythm. Patient has known history of a-fib. Currently heart rate 102. Continue to monitor closely. Patient is on chronic oxygen at 4L NC with bipap at night. Continue to monitor respiratory function and pulse oximetry. History of left pleural effusion 01/06/17. Monitor daily weights for signs of worsening fluid overload. Labs from 01/15/17 showed leukocytosis with WBC at 11.2, anemia with hgb at 9.7. Elevated renal function with BUN 35 and SCr 1.4; GFR 36 concerning for stage III chronic kidney disease. Unable to review any prior labs for comparison. TIBC, ferritin, folate and B12 pending. No signs of infection on exam. Patient has history of hypothyroidism with TSH on admission at 4.24. Will repeat CBC and BMP in AM to monitor blood counts, electrolytes and renal function. Will also obtain CXR for further evaluation of lungs. Sepsis Assessment - Evaluation Sepsis screening result: No Definite Risk - Focused Exam Vital Signs Temp Pulse Resp BP Pulse Ox 01/17/17 09:50 20 97 01/17/17 08:00 97.6 F 105 H 22 118/73 01/16/17 23:38 98 99 Respiratory exam: Present: CTA bilaterally Cardiovascular exam: Present: RRR, S1, S2 Capillary refill: > 3 Seconds Hospital Course Summary Disclaimer: The visit summary below is not to be considered part of the above Progress Note. Hospital Course: 01/16/17 09:56 Agree with admission to [facility] unit for further psychiatric evaluation and treatment. Continue on chronic oxygen at 4 liters by nasal cannula as well as CPAP at night. Continue with scheduled DuoNeb breathing treatments twice a day Chronic cardiac medications including Lasix 60 milligrams daily, Cardizem 180 milligrams daily Continue chronic anticoagulation, Eliquis 2.5 milligrams twice a day Encourage patient to participate in unit activities and provide a safe environment.
--- NOTE | 2017-01-17 11:29 | Neuropsych Progress Note ---
[place]uel[place] Subjective Date: 01/17/17 - Sujective/Severity of Illness Medications: Acetaminophen (Tylenol) 650 mg PO Q4H PRN PRN Reason: Pain Acetazolamide (Diamox Sequels) 500 mg PO DAILY [facility] Last Admin: 01/17/17 09:05 Dose: 500 mg Albuterol/Ipratropium (Duoneb) 3 ml IH BID [facility] Last Admin: 01/17/17 10:03 Dose: 3 ml Albuterol/Ipratropium (Duoneb) 3 ml IH Q2H PRN PRN Reason: Shortness of air Last Admin: 01/16/17 15:14 Dose: 3 ml Apixaban (Eliquis) 2.5 mg PO BID [facility] Last Admin: 01/17/17 09:21 Dose: 2.5 mg Aspirin (Ecotrin) 81 mg PO DAILY [facility] Last Admin: 01/17/17 09:05 Dose: 81 mg Benzonatate (Tessalon Perles) 100 mg PO BID [facility] Last Admin: 01/17/17 09:05 Dose: 100 mg Bisacodyl (Dulcolax) 10 mg RECTALLY DAILY PRN PRN Reason: Constipation Cholecalciferol (Vitamin D-3) 1,000 unit PO DAILY [facility] Last Admin: 01/17/17 09:03 Dose: 1,000 unit Diltiazem HCl (Cardizem Cd) 180 mg PO DAILY [facility] Last Admin: 01/17/17 09:04 Dose: 180 mg Docusate Sodium (Colace) 100 mg PO BID [facility] Last Admin: 01/17/17 09:13 Dose: 100 mg Ferrous Sulfate (Feosol) 324 mg PO BIDWM [facility] Last Admin: 01/17/17 09:05 Dose: 324 mg Furosemide (Lasix) 60 mg PO DAILY [facility] Last Admin: 01/17/17 09:04 Dose: 60 mg Guaifenesin (Mucinex La) 600 mg PO BID [facility] Last Admin: 01/17/17 09:05 Dose: 600 mg Haloperidol (Haldol) 0.5 mg PO Q6H PRN PRN Reason: Extreme agitation Haloperidol Lactate (Haldol) 0.5 mg IM Q6H PRN PRN Reason: Extreme agitation Lorazepam (Ativan) 0.5 mg PO Q6H PRN PRN Reason: Extreme agitation Last Admin: 01/16/17 22:36 Dose: 0.5 mg Lorazepam (Ativan Inj) 0.5 mg IM Q6H PRN PRN Reason: Extreme agitation Magnesium Hydroxide (Mom) 30 ml PO PRN PRN PRN Reason: Constipation Melatonin (Melatonin) 3 mg PO HS [facility] Last Admin: 01/16/17 21:16 Dose: 3 mg Omeprazole (Prilosec) 20 mg PO ACB [facility] Last Admin: 01/17/17 06:02 Dose: 20 mg Polyethylene Glycol (Miralax) 17 gm PO DAILY [facility] Last Admin: 01/17/17 09:14 Dose: 17 gm Potassium Chloride (K-Dur) 20 meq PO BIDWM [facility] Last Admin: 01/17/17 09:04 Dose: 20 meq Quetiapine Fumarate (Seroquel) 25 mg PO HS [facility] Last Admin: 01/16/17 21:18 Dose: 25 mg Quetiapine Fumarate (Seroquel) 12.5 mg PO DAILY [facility] Last Admin: 01/17/17 09:04 Dose: 12.5 mg Trolamine Salicylate (Aspercreme) 1 applic TOP Q8H PRN PRN Reason: Pain Subjective: Pt seen and chart examined. Nursing reports pt has been confused at times. Asked for a paper this AM and became irritable when one was not available. Later when staff got her a paper she stated she never reads the paper and did not remember asking for it. On face to face the pt is pleasant. She is oriented x 3. She states she is here because at the last facility she was trying to call to get her daughter psychiatric help. When the staff would not let her call "I threw a fit". She believes her daughter is being manipulated by her but is not sure why. She gives examples that "she wears [employer] glasses and doesnt change clothes". "She has money and doesnt have to do this". She asked this movie writer if she could hire me to help her daughter. She reports her mood is stable and she denies any S/I. She denies any A/V rock. Start Time: 10:30 Stop Time: 10:45 Mental Status Exam Vitals: Last Vital Signs Temp 97.6 F 01/17/17 08:00 Pulse 105 H 01/17/17 08:00 Resp 20 01/17/17 09:50 BP 118/73 01/17/17 08:00 Pulse Ox 97 01/17/17 09:50 Height: 1.47 m Weight: 47.5 kg - Mental Status Exam Muscle Strength/Tone: Normal Dressing: Casual Grooming: Fair Attitude: Cooperative Motor Activity: Retardation Eye Contact: Poor Speech: Slowed Volume: Soft Rhythm: Slurred Orientation: Oriented to person Mood: Neutral Rate of Thoughts: Delayed Thought Organization: [place] Associations: Illogical Abstract Reasoning: Poor abstract reasoning Thought Content: Delusions Perception/Psychotic: Hx psychosis, not current Fund of Knowledge: Poor fund of knowledge Memory: Poor-immediate, Poor-recent Suicidal Ideation: None Homicidal Ideation: None Insight: Poor Judgement: Poor Impulse Control: Poor - Laboratory Result Diagrams: 01/15/17 19:33 01/15/17 19:33 Laboratory Results - last 24 hr 01/16/17 19:34 Absolute Retic 0.0696 Percent Retic 2.1 H Immature Retic Fraction 6.4 Retic Hgb Content CHr 29.8 L Assessment and Plan (1) Major neurocognitive disorder Current visit: Yes Status: Acute Will contact family for collateral. Consider antipsychotic with higher D2 Affinity (2) A-fib Current visit: Yes Status: Acute (3) Coronary artery disease Current visit: Yes Status: Acute (4) Diastolic heart failure Current visit: Yes Status: Acute (5) HTN (hypertension) Current visit: Yes Status: Acute
[2017-01-17] MEDS: MELATONIN 1 MG TABLET PO SCH (20:34)
[2017-01-17] MEDS: LORazepam 0.5 MG TABLET PO PRN (23:19)
[2017-01-18] MEDS: OMEPRAZOLE 20 MG CAPSULE PO SCH (06:04)
--- NOTE | 2017-01-18 07:42 | XRay Report ---
INDICATION: hx pleural effusion PROCEDURE: CHEST 2-VIEWS UPRIGHT (PA & LAT) Encounter: Initial COMPARISON: None FINDINGS: Airspace consolidation in the right lower lobe with a small right pleural effusion. Incidental note is made of an azygos fissure. Bilateral apical pleural thickening or scarring. There is some faint airspace opacity in the left lower lobe with a trace left effusion. No pneumothorax. Cardiac silhouette is mildly enlarged. Mediastinal contours are prominent with enlarged central pulmonary arteries and prominence of the pulmonary vasculature. Two metallic densities project over the left ventricle. Degenerative change in the spine with a severe chronic appearing mid to lower thoracic compression fracture. Impression: Mild to moderate congestive failure with pleural effusions greater on the right. Underlying pneumonia or aspiration cannot be excluded in the right lower lobe. .
[2017-01-18] MEDS: DOCUSATE SODIUM 100 MG CAPSULE PO SCH ×2 (08:16→20:13)
[2017-01-18] MEDS: FERROUS SULFATE 324 MG TABLET PO SCH ×2 (08:16→17:22)
[2017-01-18] MEDS: acetaZOLAMIDE SR 500 MG CAPSULE PO SCH (08:17)
[2017-01-18] MEDS: ASPIRIN *EC* 81 MG TABLET PO SCH (08:17)
[2017-01-18] MEDS: BENZONATATE 100 MG CAPSULE PO SCH ×2 (08:19→20:15)
[2017-01-18] MEDS: GUAIFENESIN LA 600 MG TABLET PO SCH ×2 (08:21→20:15)
[2017-01-18] MEDS: POLYETHYL GLYCOL 3350 17gm PACKET PO SCH (08:26)
[2017-01-18] MEDS: APIXABAN 5 MG TABLET PO SCH ×2 (08:26→20:13)
[2017-01-18] MEDS: FUROSEMIDE 40 MG TABLET PO SCH (08:26)
[2017-01-18] MEDS: QUETIAPINE 25 MG TABLET PO SCH ×3 (08:33→20:25)
[2017-01-18] MEDS: IPRATROPIUM/ALBUTEROL 2.5mg-0.5mg/3ml NEB IH SCH ×2 (08:34→20:01)
--- NOTE | 2017-01-18 16:26 | Neuropsych Progress Note ---
[facility] Subjective Date: 01/18/17 - Sujective/Severity of Illness Medications: Acetaminophen (Tylenol) 650 mg PO Q4H PRN PRN Reason: Pain Acetazolamide (Diamox Sequels) 500 mg PO DAILY [facility] Last Admin: 01/18/17 08:17 Dose: 500 mg Albuterol/Ipratropium (Duoneb) 3 ml IH BID [facility] Last Admin: 01/18/17 08:34 Dose: 3 ml Albuterol/Ipratropium (Duoneb) 3 ml IH Q2H PRN PRN Reason: Shortness of air Last Admin: 01/16/17 15:14 Dose: 3 ml Apixaban (Eliquis) 2.5 mg PO BID [facility] Last Admin: 01/18/17 08:26 Dose: 2.5 mg Aspirin (Ecotrin) 81 mg PO DAILY [facility] Last Admin: 01/18/17 08:17 Dose: 81 mg Benzonatate (Tessalon Perles) 100 mg PO BID [facility] Last Admin: 01/18/17 08:19 Dose: 100 mg Bisacodyl (Dulcolax) 10 mg RECTALLY DAILY PRN PRN Reason: Constipation Cholecalciferol (Vitamin D-3) 1,000 unit PO DAILY [facility] Last Admin: 01/18/17 08:19 Dose: 1,000 unit Diltiazem HCl (Cardizem Cd) 180 mg PO DAILY [facility] Last Admin: 01/18/17 08:16 Dose: 180 mg Docusate Sodium (Colace) 100 mg PO BID [facility] Last Admin: 01/18/17 08:16 Dose: 100 mg Ferrous Sulfate (Feosol) 324 mg PO BIDWM [facility] Last Admin: 01/18/17 08:16 Dose: 324 mg Furosemide (Lasix) 60 mg PO DAILY [facility] Last Admin: 01/18/17 08:26 Dose: 60 mg Guaifenesin (Mucinex La) 600 mg PO BID [facility] Last Admin: 01/18/17 08:21 Dose: 600 mg Haloperidol (Haldol) 0.5 mg PO Q6H PRN PRN Reason: Extreme agitation Haloperidol Lactate (Haldol) 0.5 mg IM Q6H PRN PRN Reason: Extreme agitation Lorazepam (Ativan) 0.5 mg PO Q6H PRN PRN Reason: Extreme agitation Last Admin: 01/17/17 23:19 Dose: 0.5 mg Lorazepam (Ativan Inj) 0.5 mg IM Q6H PRN PRN Reason: Extreme agitation Magnesium Hydroxide (Mom) 30 ml PO PRN PRN PRN Reason: Constipation Melatonin (Melatonin) 3 mg PO 2100 JIM Omeprazole (Prilosec) 20 mg PO ACB [facility] Last Admin: 01/18/17 06:04 Dose: 20 mg Polyethylene Glycol (Miralax) 17 gm PO DAILY [facility] Last Admin: 01/18/17 08:26 Dose: Not Given Potassium Chloride (K-Dur) 20 meq PO BIDWM [facility] Last Admin: 01/18/17 08:16 Dose: 20 meq Quetiapine Fumarate (Seroquel) 12.5 mg PO DAILY [facility] Last Admin: 01/18/17 08:33 Dose: 12.5 mg Quetiapine Fumarate (Seroquel) 25 mg PO 2100 [facility] Trolamine Salicylate (Aspercreme) 1 applic TOP Q8H PRN PRN Reason: Pain Subjective: Patient seen and chart reviewed. Case discussed with treatment team. Patient is lying in bed resting upon interview and is pleasant and fully oriented. She reports her mood is "happy" but perseverates on her daughter, believing she "has something wrong with her" through the visit. She denies any SI or AVH, though she has had VH on unit per nursing staff. Staff report that patient has asked for sleeping pills even during the day as she is tired and wants to take a nap. She slept only 4.75 hours overnight and used her BiPap machine for only a very short time. She shows me a list of her sleep times and states she is surprised she is alive given her sleep pattern. We discussed various reasons this could be (such as delirium, medical issues). Patient reports that she feels well physically otherwise. Patient continues to have a-fib with HR of up to 116. No psychotropic PRNs required in the past 24 hours. Start Time: 16:20 Stop Time: 16:40 Mental Status Exam Vitals: Last Vital Signs Temp 98.6 F 01/18/17 08:00 Pulse 116 H 01/18/17 08:00 Resp 16 01/18/17 08:35 BP 117/82 01/18/17 08:00 Pulse Ox 98 01/18/17 08:35 Height: 1.47 m Weight: 49.1 kg - Mental Status Exam Muscle Strength/Tone: Normal Dressing: Casual Grooming: Fair Attitude: Cooperative Motor Activity: Retardation Eye Contact: Fair Speech: Slowed Volume: Soft Rhythm: Appropriate Rhythm Orientation: Oriented to person, Oriented to place, Oriented to time Mood: Neutral Rate of Thoughts: Delayed Thought Organization: [employer] [place] Associations: Illogical Abstract Reasoning: Poor abstract reasoning Thought Content: Delusions Perception/Psychotic: Psychotic Current Hallucinations: Visual (per staff) Language: Naming Intact Fund of Knowledge: Poor fund of knowledge Memory: Poor-immediate, Poor-recent Suicidal Ideation: Denies Homicidal Ideation: Denies Insight: Poor Judgement: Poor Impulse Control: Poor - Laboratory Result Diagrams: 01/18/17 04:32 01/18/17 04:32 Laboratory Results - last 24 hr 01/16/17 01/16/17 01/16/17 06:55 06:55 19:34 WBC RBC Hgb Hct MCV MCH MCHC RDW Std Deviation Plt Count MPV Immature Gran % (Auto) Neut % (Auto) Lymph % (Auto) [place] % (Auto) Eos % (Auto) Baso % (Auto) Neut # Lymph # [place] # Eos # Baso # Abs Immat Gran (auto) Turbidity Sodium Potassium Chloride Carbon Dioxide Anion Gap BUN Creatinine GFR Calculation BUN/Creatinine Ratio Glucose Calculated Osmolality Calcium TIBC 390 Ferritin 24.2 Icterus Index Vitamin B12 888 Folate 14.4 Specimen Hemolysis 01/18/17 01/18/17 04:32 04:32 WBC 7.5 RBC 2.87 L Hgb 8.4 L D Hct 29.5 L D MCV 102.8 H MCH 29.3 MCHC 28.5 L RDW Std Deviation 60.5 H Plt Count 285 MPV 10.4 Immature Gran % (Auto) 0.1 Neut % (Auto) 75.9 H Lymph % (Auto) 13.0 L [place] % (Auto) 8.7 Eos % (Auto) 2.0 Baso % (Auto) 0.3 Neut # 5.7 Lymph # 1.0 [place] # 0.7 Eos # 0.2 Baso # 0.0 Abs Immat Gran (auto) 0.01 Turbidity 20 Sodium 145 H Potassium 4.3 Chloride 107 Carbon Dioxide 30 Anion Gap 8 BUN 34.0 H Creatinine 1.1 D GFR Calculation 47 BUN/Creatinine Ratio 31 H Glucose 96 Calculated Osmolality 287 H Calcium 8.5 TIBC Ferritin Icterus Index 2 Vitamin B12 Folate Specimen Hemolysis 15 Assessment and Plan (1) Major neurocognitive disorder Problem details: With behavioral disturbance Current visit: Yes Status: Acute 01/18/17: Patient seems to be improving (fully oriented upon interview) from delirium but continuing to perseverate on delusions re: daughter. Increase Seroquel to 25mg PO BID, monitor for increased daytime sedation. Want to limit daytime naps and encourage sleep with BiPap use at night. (2) A-fib Current visit: Yes Status: Acute (3) Anemia Current visit: Yes Status: Acute (4) Chronic anticoagulation Current visit: Yes Status: Acute (5) Coronary artery disease Current visit: Yes Status: Acute (6) Diastolic heart failure Current visit: Yes Status: Acute (7) HTN (hypertension) Current visit: Yes Status: Acute (8) Hx of pleural effusion Current visit: Yes Status: Acute (9) Mitral regurgitation Current visit: Yes Status: Acute
[2017-01-18] MEDS: MELATONIN 1 MG TABLET PO SCH ×2 (17:52→20:14)
[2017-01-18] MEDS ORDERED: QUETIAPINE 25 MG TABLET PO SCH (21:34)
[2017-01-19] MEDS: LORazepam 0.5 MG TABLET PO PRN (02:00)
[2017-01-19] MEDS: OMEPRAZOLE 20 MG CAPSULE PO SCH (05:59)
[2017-01-19] MEDS: FERROUS SULFATE 324 MG TABLET PO SCH ×2 (08:09→17:18)
[2017-01-19] MEDS: DOCUSATE SODIUM 100 MG CAPSULE PO SCH ×2 (08:11→20:35)
[2017-01-19] MEDS: FUROSEMIDE 40 MG TABLET PO SCH (08:12)
[2017-01-19] MEDS: GUAIFENESIN LA 600 MG TABLET PO SCH ×2 (08:12→20:36)
[2017-01-19] MEDS: acetaZOLAMIDE SR 500 MG CAPSULE PO SCH (08:13)
[2017-01-19] MEDS: ASPIRIN *EC* 81 MG TABLET PO SCH (08:14)
[2017-01-19] MEDS: APIXABAN 5 MG TABLET PO SCH ×2 (08:14→20:32)
[2017-01-19] MEDS: BENZONATATE 100 MG CAPSULE PO SCH ×2 (08:14→20:37)
[2017-01-19] MEDS: POLYETHYL GLYCOL 3350 17gm PACKET PO SCH (08:15)
[2017-01-19] MEDS: QUETIAPINE 25 MG TABLET PO SCH ×2 (08:22→20:36)
[2017-01-19] MEDS: IPRATROPIUM/ALBUTEROL 2.5mg-0.5mg/3ml NEB IH SCH ×2 (08:50→17:46)
--- NOTE | 2017-01-19 09:38 | Progress Note ---
Subjective: Pam was finishing breakfast. She reports that she has been feeling quite well. She denies any concerns. No chest pain or difficulty breathing (though does wear chronic oxygen). She denies abdominal pain or GI complaints. No weakness/ dizziness. Per staff, she had a restless night but they deny any acute concerns. Objective Vital signs: Temp Pulse Resp BP Pulse Ox 98.0 F 91 18 115/65 96 01/19/17 07:41 01/19/17 07:41 01/19/17 09:31 01/19/17 07:41 01/19/17 09:31 Weight: 49.1 kg - Constitutional Present: no acute distress, thin, cooperative - Routine HEENT Exam Eye: Present: PERRL. Absent: conjunctival icterus ENT: Present: oropharynx clear - Routine Respiratory Exam Present: crackles (faint bibasilar crackles), diminished air movement - Routine Cardiovascular Exam Present: murmur, irregularly irregular - Routine Abdominal Exam Present: soft, normoactive bowel sounds, non distended, non tender - Routine Extremities Exam Present: edema (1-2+ BLE) - Routine Skin Exam Present: intact, dry, pallor - Routine Neurological Exam Present: alert, normal tone - Routine Psychiatric Exam Present: normal affect, cooperative Results - Labs CBC & Chem 7: 01/18/17 04:32 01/18/17 04:32 Assessment and Plan (1) Neurocognitive disorder Current visit: Yes Status: Acute (2) Hx of pleural effusion Current visit: Yes Status: Acute (3) Coronary artery disease Current visit: Yes Status: Acute (4) A-fib Current visit: Yes Status: Acute (5) Chronic anticoagulation Current visit: Yes Status: Acute (6) Diastolic heart failure Current visit: Yes Status: Acute (7) Anemia Current visit: Yes Status: Acute (8) Mitral regurgitation Current visit: Yes Status: Acute (9) HTN (hypertension) Current visit: Yes Status: Acute Assessment and Plan: CHF -CXR on 01/17 showed moderate CHF with pleural effusions. Crackles heard today on exam and 1-2+ BLE edema. Repeat CXR now. -may need to add an extra dose of Lasix - currently takes 60 mg daily. -weight is up about 0.5 kg. -continue oxygen and BiPAP HS Anemia, macrocytic -Hgb continues to trend down. -B12, ferritin, folate - normal; will check iron -check stool for occult blood Leukocytosis -resolved -repeat CBC in am Hypernatremia -mild, monitor closely especially since she's on Lasix -repeat BMP in am CKD -renal function improved with cr down to 1.1 A-fib -on Eliquis -rate fairly well controlled on diltiazem Behavioral disturbance -Psych notes reviewed. Seroquel increased. Sepsis Assessment - Evaluation Sepsis screening result: No Definite Risk - Focused Exam Vital Signs Temp Pulse Resp BP Pulse Ox 01/19/17 09:31 18 96 01/19/17 07:41 98.0 F 91 20 115/65 100 Respiratory exam: Present: CTA bilaterally Cardiovascular exam: Present: RRR, S1, S2 Capillary refill: > 3 Seconds Hospital Course Summary Disclaimer: The visit summary below is not to be considered part of the above Progress Note. Hospital Course: 01/16/17 09:56 Agree with admission to [facility] unit for further psychiatric evaluation and treatment. Continue on chronic oxygen at 4 liters by nasal cannula as well as CPAP at night. Continue with scheduled DuoNeb breathing treatments twice a day Chronic cardiac medications including Lasix 60 milligrams daily, Cardizem 180 milligrams daily Continue chronic anticoagulation, Eliquis 2.5 milligrams twice a day 01/19/17 09:51 CHF -CXR on 01/17 showed moderate CHF with pleural effusions. Crackles heard today on exam and 1-2+ BLE edema. Repeat CXR now. -may need to add an extra dose of Lasix - currently takes 60 mg daily. -weight is up about 0.5 kg. -continue oxygen and BiPAP HS Anemia, macrocytic -Hgb continues to trend down. -B12, ferritin, folate - normal; will check iron -check stool for occult blood Leukocytosis -resolved -repeat CBC in am Hypernatremia -mild, monitor closely especially since she's on Lasix -repeat BMP in am CKD -renal function improved with cr down to 1.1 A-fib -on Eliquis -rate fairly well controlled on diltiazem Behavioral disturbance -Psych notes reviewed. Seroquel increased.
--- NOTE | 2017-01-19 13:48 | XRay Report ---
Indication: CHF f/u PROCEDURE: XR chest 1V: Encounter: Initial Comparison: January 17, 2017 Findings: Lungs are slightly more hypoinflated than the comparison study but otherwise stable. Continued right basilar airspace consolidation with a small right pleural effusion. No new infiltrates. No significant left effusion. No pneumothorax. Cardiac silhouette remains enlarged. Tortuous ectatic thoracic aorta. Mild pulmonary vascular prominence is similar. Impression: Stable appearance of the chest with small right pleural effusion and pulmonary vascular congestion. .
--- NOTE | 2017-01-19 14:29 | Neuropsych Progress Note ---
[facility] Subjective Date: 01/19/17 - Sujective/Severity of Illness Medications: Acetaminophen (Tylenol) 650 mg PO Q4H PRN PRN Reason: Pain Acetazolamide (Diamox Sequels) 500 mg PO DAILY [facility] Last Admin: 01/19/17 08:13 Dose: 500 mg Albuterol/Ipratropium (Duoneb) 3 ml IH BID [facility] Last Admin: 01/19/17 08:50 Dose: 3 ml Albuterol/Ipratropium (Duoneb) 3 ml IH Q2H PRN PRN Reason: Shortness of air Last Admin: 01/16/17 15:14 Dose: 3 ml Apixaban (Eliquis) 2.5 mg PO BID [facility] Last Admin: 01/19/17 08:14 Dose: 2.5 mg Aspirin (Ecotrin) 81 mg PO DAILY [facility] Last Admin: 01/19/17 08:14 Dose: 81 mg Benzonatate (Tessalon Perles) 100 mg PO BID [facility] Last Admin: 01/19/17 08:14 Dose: 100 mg Bisacodyl (Dulcolax) 10 mg RECTALLY DAILY PRN PRN Reason: Constipation Cholecalciferol (Vitamin D-3) 1,000 unit PO DAILY [facility] Last Admin: 01/19/17 08:11 Dose: 1,000 unit Diltiazem HCl (Cardizem Cd) 180 mg PO DAILY [facility] Last Admin: 01/19/17 08:10 Dose: 180 mg Docusate Sodium (Colace) 100 mg PO BID [facility] Last Admin: 01/19/17 08:11 Dose: 100 mg Ferrous Sulfate (Feosol) 324 mg PO BIDWM [facility] Last Admin: 01/19/17 08:09 Dose: 324 mg Furosemide (Lasix) 60 mg PO DAILY [facility] Last Admin: 01/19/17 08:12 Dose: 60 mg Guaifenesin (Mucinex La) 600 mg PO BID [facility] Last Admin: 01/19/17 08:12 Dose: 600 mg Haloperidol (Haldol) 0.5 mg PO Q6H PRN PRN Reason: Extreme agitation Haloperidol Lactate (Haldol) 0.5 mg IM Q6H PRN PRN Reason: Extreme agitation Lorazepam (Ativan) 0.5 mg PO Q6H PRN PRN Reason: Extreme agitation Last Admin: 01/17/17 23:19 Dose: 0.5 mg Lorazepam (Ativan Inj) 0.5 mg IM Q6H PRN PRN Reason: Extreme agitation Magnesium Hydroxide (Mom) 30 ml PO PRN PRN PRN Reason: Constipation Melatonin (Melatonin) 3 mg PO 2100 [facility] Last Admin: 01/18/17 20:14 Dose: 3 mg Omeprazole (Prilosec) 20 mg PO ACB [facility] Last Admin: 01/19/17 05:59 Dose: 20 mg Polyethylene Glycol (Miralax) 17 gm PO DAILY [facility] Last Admin: 01/19/17 08:15 Dose: 17 gm Potassium Chloride (K-Dur) 20 meq PO BIDWM [facility] Last Admin: 01/19/17 08:10 Dose: 20 meq Quetiapine Fumarate (Seroquel) 25 mg PO 2100 [facility] Last Admin: 01/18/17 20:25 Dose: 25 mg Quetiapine Fumarate (Seroquel) 25 mg PO DAILY [facility] Last Admin: 01/19/17 08:22 Dose: 25 mg Trolamine Salicylate (Aspercreme) 1 applic TOP Q8H PRN PRN Reason: Pain Subjective: Patient seen and chart reviewed. Case discussed with treatment team. Patient is sleeping during rounds and thus unable to participate in interview. Hospitalist repeating CXR today, labs in AM. Nursing staff report she tends to isolate to her room but has been cooperative overall. Is not talking about delusions re: daughter today. Patient's sleep was restless/interrupted overnight. VSS. Patient is eating well. Psychotropic PRNs required in the past 24 hours: none. Start Time: 14:40 Stop Time: 15:00 Mental Status Exam Vitals: Last Vital Signs Temp 98.0 F 01/19/17 07:41 Pulse 91 01/19/17 07:41 Resp 18 01/19/17 09:31 BP 115/65 01/19/17 07:41 Pulse Ox 96 01/19/17 09:31 Height: 1.47 m Weight: 49.1 kg - Mental Status Exam Muscle Strength/Tone: Normal Dressing: Casual Grooming: Fair Attitude: Cooperative Motor Activity: Retardation Eye Contact: Fair Speech: Slowed Volume: Soft Rhythm: Appropriate Rhythm Orientation: Oriented to person, Oriented to place, Oriented to time Mood: Neutral Rate of Thoughts: Delayed Thought Organization: Tangential, [place] Associations: Illogical Abstract Reasoning: Poor abstract reasoning Thought Content: Delusions Perception/Psychotic: Psychotic Current Hallucinations: Visual (per staff) Language: Naming Intact Fund of Knowledge: Poor fund of knowledge Memory: Poor-immediate, Poor-recent Suicidal Ideation: Denies Homicidal Ideation: Denies Insight: Poor Judgement: Poor Impulse Control: Poor - Laboratory Result Diagrams: 01/18/17 04:32 01/18/17 04:32 Laboratory Results - last 24 hr 01/16/17 01/16/17 06:55 06:55 Triglycerides 39 Cholesterol 160 LDL Cholesterol, Calc 84.2 VLDL Cholesterol 7.8 HDL Cholesterol 68 H Cholesterol/HDL Ratio 2.4 RPR Nr Assessment and Plan (1) Major neurocognitive disorder Problem details: With behavioral disturbance Current visit: Yes Status: Acute 01/19/17: Monitor for improvement of delirium as medical issues improve. Seroquel 25mg PO BID seems helpful in reducing delusional thoughts - but need to monitor for daytime sedation, minimize daytime naps, encourage better sleep hygiene with use of Bipap at night. Encourage participation in activities and spending time out of room. Continue current care otherwise. (2) A-fib Current visit: Yes Status: Acute (3) Anemia Current visit: Yes Status: Acute (4) Chronic anticoagulation Current visit: Yes Status: Acute (5) Coronary artery disease Current visit: Yes Status: Acute (6) Diastolic heart failure Current visit: Yes Status: Acute (7) HTN (hypertension) Current visit: Yes Status: Acute (8) Hx of pleural effusion Current visit: Yes Status: Acute (9) Mitral regurgitation Current visit: Yes Status: Acute
[2017-01-19] MEDS: MELATONIN 1 MG TABLET PO SCH (20:35)
[2017-01-20] MEDS: OMEPRAZOLE 20 MG CAPSULE PO SCH (06:26)
[2017-01-20] MEDS: FERROUS SULFATE 324 MG TABLET PO SCH ×2 (08:50→18:01)
[2017-01-20] MEDS: DOCUSATE SODIUM 100 MG CAPSULE PO SCH ×2 (08:51→20:04)
[2017-01-20] MEDS: acetaZOLAMIDE SR 500 MG CAPSULE PO SCH (08:51)
[2017-01-20] MEDS: ASPIRIN *EC* 81 MG TABLET PO SCH (08:52)
[2017-01-20] MEDS: APIXABAN 5 MG TABLET PO SCH ×2 (08:52→20:05)
[2017-01-20] MEDS: POLYETHYL GLYCOL 3350 17gm PACKET PO SCH (08:53)
[2017-01-20] MEDS: GUAIFENESIN LA 600 MG TABLET PO SCH ×2 (08:53→20:06)
[2017-01-20] MEDS: FUROSEMIDE 40 MG TABLET PO SCH (08:53)
[2017-01-20] MEDS: BENZONATATE 100 MG CAPSULE PO SCH ×2 (08:54→20:11)
[2017-01-20] MEDS: QUETIAPINE 25 MG TABLET PO SCH (08:54)
--- NOTE | 2017-01-20 19:58 | Neuropsych Progress Note ---
[facility] Subjective Date: 01/20/17 - Sujective/Severity of Illness Medications: Acetaminophen (Tylenol) 650 mg PO Q4H PRN PRN Reason: Pain Acetazolamide (Diamox Sequels) 500 mg PO DAILY [facility] Last Admin: 01/20/17 08:51 Dose: 500 mg Albuterol/Ipratropium (Duoneb) 3 ml IH BID [facility] Last Admin: 01/19/17 17:46 Dose: 3 ml Albuterol/Ipratropium (Duoneb) 3 ml IH Q2H PRN PRN Reason: Shortness of air Last Admin: 01/16/17 15:14 Dose: 3 ml Apixaban (Eliquis) 2.5 mg PO BID [facility] Last Admin: 01/20/17 08:52 Dose: 2.5 mg Aspirin (Ecotrin) 81 mg PO DAILY [facility] Last Admin: 01/20/17 08:52 Dose: 81 mg Benzonatate (Tessalon Perles) 100 mg PO BID [facility] Last Admin: 01/20/17 08:54 Dose: 100 mg Bisacodyl (Dulcolax) 10 mg RECTALLY DAILY PRN PRN Reason: Constipation Cholecalciferol (Vitamin D-3) 1,000 unit PO DAILY [facility] Last Admin: 01/20/17 08:54 Dose: 1,000 unit Diltiazem HCl (Cardizem Cd) 180 mg PO DAILY [facility] Last Admin: 01/20/17 08:50 Dose: 180 mg Docusate Sodium (Colace) 100 mg PO BID [facility] Last Admin: 01/20/17 08:51 Dose: 100 mg Ferrous Sulfate (Feosol) 324 mg PO BIDWM [facility] Last Admin: 01/20/17 18:01 Dose: 324 mg Furosemide (Lasix) 40 mg PO DAILY [facility] Guaifenesin (Mucinex La) 600 mg PO BID [facility] Last Admin: 01/20/17 08:53 Dose: 600 mg Haloperidol (Haldol) 0.5 mg PO Q6H PRN PRN Reason: Extreme agitation Haloperidol Lactate (Haldol) 0.5 mg IM Q6H PRN PRN Reason: Extreme agitation Lorazepam (Ativan) 0.5 mg PO Q6H PRN PRN Reason: Extreme agitation Last Admin: 01/17/17 23:19 Dose: 0.5 mg Lorazepam (Ativan Inj) 0.5 mg IM Q6H PRN PRN Reason: Extreme agitation Magnesium Hydroxide (Mom) 30 ml PO PRN PRN PRN Reason: Constipation Melatonin (Melatonin) 3 mg PO 2100 [facility] Last Admin: 01/19/17 20:35 Dose: 3 mg Omeprazole (Prilosec) 20 mg PO ACB [facility] Last Admin: 01/20/17 06:26 Dose: 20 mg Polyethylene Glycol (Miralax) 17 gm PO DAILY [facility] Last Admin: 01/20/17 08:53 Dose: 17 gm Quetiapine Fumarate (Seroquel) 25 mg PO 2100 [facility] Last Admin: 01/19/17 20:36 Dose: 25 mg Quetiapine Fumarate (Seroquel) 25 mg PO DAILY [facility] Last Admin: 01/20/17 08:54 Dose: 25 mg Trolamine Salicylate (Aspercreme) 1 applic TOP Q8H PRN PRN Reason: Pain Subjective: Patient seen and chart reviewed. Case discussed with treatment team. On interview, patient is pleasant and cooperative. She states that her mood is good and she is feeling well physically. She continues to worry about her sleep. When I pressed her for whether she was anxious/worried about anything, she stated she is concerned about her daughter's mental illness. She did not bring this up voluntarily or perseverate on it as she did before, but she asked for my help in finding a way to trick her to getting to an appointment with a psychiatrist. Patient denies any SI, HI or AVH. Patient denies any adverse side effects related to psychotropic medications. Nursing staff report patient tends to isolate to room though she is not sleeping during the day -- she is lying in bed awake. She exhibits mild irritability at times. She calls staff frequently. She states that her behaviors at [facility] were because she hated it there, and had to throw herself on the floor and scream to get attention. No report of patient having VH as upon admission. Patient slept a total of 5 hours overnight though this was restless/ interrupted. Exhibiting some tachycardia this evening - hospitalist following labs, CXR. Patient's appetite has improved. Psychotropic PRNs required in the past 24 hours: none. Start Time: 14:40 Stop Time: 15:00 Mental Status Exam Vitals: Last Vital Signs Temp 98.2 F 01/20/17 16:29 Pulse 111 H 01/20/17 16:29 Resp 24 01/20/17 16:29 BP 118/63 01/20/17 16:29 Pulse Ox 93 01/20/17 14:06 Height: 1.47 m Weight: 50.7 kg - Mental Status Exam Muscle Strength/Tone: Normal Dressing: Casual Grooming: Fair Attitude: Cooperative Motor Activity: Retardation Eye Contact: Fair Speech: Slowed Volume: Soft Rhythm: Appropriate Rhythm Orientation: Oriented X4 Mood: Euthymic Rate of Thoughts: Delayed Thought Organization: Organized, [place] Associations: Illogical Abstract Reasoning: Poor abstract reasoning Thought Content: Delusions Perception/Psychotic: Hx psychosis, not current Language: Naming Intact Fund of Knowledge: Poor fund of knowledge Memory: Poor-immediate, Poor-recent Suicidal Ideation: Denies Homicidal Ideation: Denies Insight: Poor Judgement: Poor Impulse Control: Poor - Laboratory Result Diagrams: 01/20/17 07:10 01/20/17 07:10 Laboratory Results - last 24 hr 01/20/17 01/20/17 01/20/17 07:10 07:10 10:43 WBC 7.1 RBC 2.98 L Hgb 8.8 L Hct 30.9 L MCV 103.7 H MCH 29.5 MCHC 28.5 L RDW Std Deviation 60.5 H Plt Count 284 MPV 10.2 Immature Gran % (Auto) 0.3 Neut % (Auto) 73.2 H Lymph % (Auto) 16.4 L Prentiss % (Auto) 7.3 Eos % (Auto) 2.5 Baso % (Auto) 0.3 Neut # 5.2 Lymph # 1.2 Prentiss # 0.5 Eos # 0.2 Baso # 0.0 Abs Immat Gran (auto) 0.02 Turbidity 20 Sodium 147 H Potassium 4.0 Chloride 108 H Carbon Dioxide 28 Anion Gap 11 BUN 27.0 H Creatinine 0.9 D GFR Calculation 59 BUN/Creatinine Ratio 30 H Glucose 145 H Calculated Osmolality 290 H Calcium 8.3 L Icterus Index 2 Specimen Hemolysis 15 Stool Occult Blood Negative Assessment and Plan (1) Major neurocognitive disorder Problem details: With behavioral disturbance Current visit: Yes Status: Acute (2) A-fib Current visit: Yes Status: Acute (3) Anemia Current visit: Yes Status: Acute (4) Chronic anticoagulation Current visit: Yes Status: Acute (5) Coronary artery disease Current visit: Yes Status: Acute (6) Diastolic heart failure Current visit: Yes Status: Acute (7) HTN (hypertension) Current visit: Yes Status: Acute (8) Hx of pleural effusion Current visit: Yes Status: Acute (9) Mitral regurgitation Current visit: Yes Status: Acute 01/20/17: Increase HS Seroquel to 50mg PO q HS - to target restless sleep, help with delusions/irritability. Still wanting to minimize daytime sedation.
[2017-01-20] MEDS: MELATONIN 1 MG TABLET PO SCH (20:08)
[2017-01-20] MEDS ORDERED: QUETIAPINE 25 MG TABLET PO SCH (21:00)
[2017-01-20] MEDS: IPRATROPIUM/ALBUTEROL 2.5mg-0.5mg/3ml NEB IH SCH (21:09)
[2017-01-21] MEDS: OMEPRAZOLE 20 MG CAPSULE PO SCH (05:49)
[2017-01-21] MEDS: APIXABAN 5 MG TABLET PO SCH ×2 (09:06→21:11)
[2017-01-21] MEDS: FUROSEMIDE 40 MG TABLET PO SCH (09:06)
[2017-01-21] MEDS: BENZONATATE 100 MG CAPSULE PO SCH ×2 (09:06→21:15)
[2017-01-21] MEDS: FERROUS SULFATE 324 MG TABLET PO SCH ×2 (09:07→18:15)
[2017-01-21] MEDS: GUAIFENESIN LA 600 MG TABLET PO SCH ×2 (09:07→21:14)
[2017-01-21] MEDS: acetaZOLAMIDE SR 500 MG CAPSULE PO SCH (09:07)
[2017-01-21] MEDS: QUETIAPINE 25 MG TABLET PO SCH (09:07)
[2017-01-21] MEDS: DOCUSATE SODIUM 100 MG CAPSULE PO SCH ×2 (09:07→21:10)
[2017-01-21] MEDS: POLYETHYL GLYCOL 3350 17gm PACKET PO SCH (09:08)
[2017-01-21] MEDS: ASPIRIN *EC* 81 MG TABLET PO SCH (09:08)
[2017-01-21] MEDS: IPRATROPIUM/ALBUTEROL 2.5mg-0.5mg/3ml NEB IH SCH ×2 (11:08→21:10)
--- NOTE | 2017-01-21 15:50 | Neuropsych Progress Note ---
[facility] Subjective Date: 01/21/17 - Sujective/Severity of Illness Medications: Acetaminophen (Tylenol) 650 mg PO Q4H PRN PRN Reason: Pain Acetazolamide (Diamox Sequels) 500 mg PO DAILY [facility] Last Admin: 01/21/17 09:07 Dose: 500 mg Albuterol/Ipratropium (Duoneb) 3 ml IH BID [facility] Last Admin: 01/21/17 11:08 Dose: 3 ml Albuterol/Ipratropium (Duoneb) 3 ml IH Q2H PRN PRN Reason: Shortness of air Last Admin: 01/16/17 15:14 Dose: 3 ml Apixaban (Eliquis) 2.5 mg PO BID [facility] Last Admin: 01/21/17 09:06 Dose: 2.5 mg Aspirin (Ecotrin) 81 mg PO DAILY [facility] Last Admin: 01/21/17 09:08 Dose: 81 mg Benzonatate (Tessalon Perles) 100 mg PO BID [facility] Last Admin: 01/21/17 09:06 Dose: 100 mg Bisacodyl (Dulcolax) 10 mg RECTALLY DAILY PRN PRN Reason: Constipation Cholecalciferol (Vitamin D-3) 1,000 unit PO DAILY [facility] Last Admin: 01/21/17 09:07 Dose: 1,000 unit Diltiazem HCl (Cardizem Cd) 180 mg PO DAILY [facility] Last Admin: 01/21/17 09:07 Dose: 180 mg Docusate Sodium (Colace) 100 mg PO BID [facility] Last Admin: 01/21/17 09:07 Dose: 100 mg Ferrous Sulfate (Feosol) 324 mg PO BIDWM [facility] Last Admin: 01/21/17 09:07 Dose: 324 mg Furosemide (Lasix) 40 mg PO DAILY [facility] Last Admin: 01/21/17 09:06 Dose: 40 mg Guaifenesin (Mucinex La) 600 mg PO BID [facility] Last Admin: 01/21/17 09:07 Dose: 600 mg Haloperidol (Haldol) 0.5 mg PO Q6H PRN PRN Reason: Extreme agitation Haloperidol Lactate (Haldol) 0.5 mg IM Q6H PRN PRN Reason: Extreme agitation Lorazepam (Ativan) 0.5 mg PO Q6H PRN PRN Reason: Extreme agitation Last Admin: 01/17/17 23:19 Dose: 0.5 mg Lorazepam (Ativan Inj) 0.5 mg IM Q6H PRN PRN Reason: Extreme agitation Magnesium Hydroxide (Mom) 30 ml PO PRN PRN PRN Reason: Constipation Melatonin (Melatonin) 3 mg PO 2099 [facility] Last Admin: 01/20/17 20:08 Dose: 3 mg Omeprazole (Prilosec) 20 mg PO ACB [facility] Last Admin: 01/21/17 05:49 Dose: 20 mg Polyethylene Glycol (Miralax) 17 gm PO DAILY [facility] Last Admin: 01/21/17 09:08 Dose: Not Given Quetiapine Fumarate (Seroquel) 25 mg PO DAILY [facility] Last Admin: 01/21/17 09:07 Dose: 25 mg Quetiapine Fumarate (Seroquel) 50 mg PO 2099 [facility] Trolamine Salicylate (Aspercreme) 1 applic TOP Q8H PRN PRN Reason: Pain Subjective: Patient seen and chart reviewed. Case discussed with treatment team. On interview, patient is lying in bed and has been anxious to speak with the doctor. She asks the nurse to bring her her notes (2+ pages filled with notes/ questions to ask me). In regards to herself, she is primarily concerned about her sleep. She reports having a good mood and feeling well physically otherwise. She did only sleep a total of 2.5 hours last night, the longest period uninterrupted was 45 minutes per staff. She had a 1.75 hour nap yesterday. HS Seroquel was increased to 50mg last night - but patient seemed to have paradoxical reaction. Discussed patient's treatment/progress with daughter/ DPOA and agreed to a trial of Zyprexa rather than Seroquel tonight, to target both insomnia and delusional thoughts. If continues to have paradoxical reaction , may consider alternate sleep medication. Daughter/DPOA gave informed consent for trial of Zyprexa and was in agreement with plan. Patient spent remainder of interview perseverating on daughter and ways she may try to trick her into an appointment at . She wants my help in calling them, getting her daughter there , etc. She is frustrated that no one will help her and threatens to begin acting out as she did at [facility] if someone doesn't assist her. Nursing staff report patient was irritable and resistive with their assistance this morning as well. Patient denies any SI, HI or AVH. Patient denies any other adverse side effects related to psychotropic medications. Patient did have some tachycardia this morning - does not seem to have continued ; unsure of activity/mood at the time. Patient is eating better than upon admission. Psychotropic PRNs required in the past 24 hours: none. Start Time: 16:00 Stop Time: 16:20 Mental Status Exam Vitals: Last Vital Signs Temp 99.0 F 01/21/17 15:47 Pulse 100 01/21/17 15:47 Resp 22 01/21/17 15:47 BP 121/69 01/21/17 15:47 Pulse Ox 96 01/21/17 15:47 Height: 1.47 m Weight: 51.1 kg - Mental Status Exam Muscle Strength/Tone: Normal Dressing: Casual Grooming: Fair Attitude: Manipulative, Argumentative (mild) Motor Activity: Retardation Eye Contact: Fair Speech: Slowed Volume: Soft Rhythm: Appropriate Rhythm Orientation: Oriented X4 Mood: Irritable (intermittent, mild) Rate of Thoughts: Delayed Thought Organization: Organized, Perseverations (on daughter's mental illness, delusional thoughts), [place] Associations: Illogical Abstract Reasoning: Poor abstract reasoning Thought Content: Delusions Perception/Psychotic: Hx psychosis, not current Current Hallucinations: Visual (per staff) Language: Naming Intact Fund of Knowledge: Poor fund of knowledge Memory: Poor-immediate, Poor-recent Suicidal Ideation: Denies Homicidal Ideation: Denies Insight: Poor Judgement: Poor Impulse Control: Poor - Laboratory Result Diagrams: 01/20/17 07:10 01/20/17 07:10 Assessment and Plan (1) Major neurocognitive disorder Problem details: With behavioral disturbance Current visit: Yes Status: Acute Patient's physical condition is improving. Unclear if Seroquel contributed to overnight insomnia/restlessness. After obtaining informed consent from daughter/ DPOA today, will discontinue Seroquel and start Zyprexa 5mg PO q HS to target insomnia, delusional thoughts. May need slight dosage increase. Continue to monitor QTc. If patient continues to exhibit paradoxical reactions to sedative effects, consider alternate sleep medication such as trazodone. (2) A-fib Current visit: Yes Status: Acute (3) Anemia Current visit: Yes Status: Acute (4) Chronic anticoagulation Current visit: Yes Status: Acute (5) Coronary artery disease Current visit: Yes Status: Acute (6) Diastolic heart failure Current visit: Yes Status: Acute (7) HTN (hypertension) Current visit: Yes Status: Acute (8) Hx of pleural effusion Current visit: Yes Status: Acute (9) Mitral regurgitation Current visit: Yes Status: Acute
--- NOTE | 2017-01-21 16:26 | Progress Note ---
Subjective: Pam was in bed, but awake. She had a pen in hand and was reviewing hand- written lists. She stated that she is worried about her daughter - she states that she's been sick and has been visiting her more frequently. She asks for a phone to call her - it's not right that she can't call her whenever she wants. Per nursing notes, she only slept 2.5 hours last night. She has been frustrated and accusatory. Appetite has been fair, 25-100% of meals. Objective Vital signs: Temp Pulse Resp BP Pulse Ox 99.0 F 100 22 121/69 96 01/21/17 15:47 01/21/17 15:47 01/21/17 15:47 01/21/17 15:47 01/21/17 15:47 Weight: 51.1 kg - Constitutional Present: no acute distress, thin, cooperative - Routine HEENT Exam Eye: Absent: conjunctival icterus - Routine Respiratory Exam Present: decreased breath sounds - Routine Cardiovascular Exam Present: S1, S2, murmur, irregularly irregular - Routine Abdominal Exam Present: soft, non distended, non tender - Routine Extremities Exam Present: edema (1+), pulses intact, normal capillary refill - Routine Musculoskeletal Exam Musculoskeletal: moving extremities well - Routine Skin Exam Present: intact, pallor, warm - Routine Neurological Exam Present: alert Results - Labs CBC & Chem 7: 01/20/17 07:10 01/20/17 07:10 Assessment and Plan (1) Neurocognitive disorder Current visit: Yes Status: Acute (2) Hx of pleural effusion Current visit: Yes Status: Acute (3) Coronary artery disease Current visit: Yes Status: Acute (4) A-fib Current visit: Yes Status: Acute (5) Chronic anticoagulation Current visit: Yes Status: Acute (6) Diastolic heart failure Current visit: Yes Status: Acute (7) Anemia Current visit: Yes Status: Acute (8) Mitral regurgitation Current visit: Yes Status: Acute (9) HTN (hypertension) Current visit: Yes Status: Acute Assessment and Plan: CHF -Weight slowly increasing - 51.1 kg -Breathing at baseline -JASON watkins ordered -monitor fluid status closely Hypernatremia -increased to 147 -Lasix dose reduced Macrocytic anemia -iron level pending -stool for occult blood - neg -hgb increased to 8.8 Psych -HS seroquel increased D/W Dr. Culver Sepsis Assessment - Evaluation Sepsis screening result: No Definite Risk - Focused Exam Vital Signs Temp Pulse Resp BP Pulse Ox 01/21/17 15:47 99.0 F 100 22 121/69 96 01/21/17 08:00 98.3 F 116 H 16 123/66 94 01/21/17 07:40 16 97 Respiratory exam: Present: CTA bilaterally Cardiovascular exam: Present: RRR, S1, S2 Capillary refill: > 3 Seconds Hospital Course Summary Disclaimer: The visit summary below is not to be considered part of the above Progress Note. Hospital Course: 01/16/17 09:56 Agree with admission to [facility] for further psychiatric evaluation and treatment. Continue on chronic oxygen at 4 liters by nasal cannula as well as CPAP at night. Continue with scheduled DuoNeb breathing treatments twice a day Chronic cardiac medications including Lasix 60 milligrams daily, Cardizem 180 milligrams daily Continue chronic anticoagulation, Eliquis 2.5 milligrams twice a day 01/19/17 09:51 CHF -CXR on 01/17 showed moderate CHF with pleural effusions. Crackles heard today on exam and 1-2+ BLE edema. Repeat CXR now. -may need to add an extra dose of Lasix - currently takes 60 mg daily. -weight is up about 0.5 kg. -continue oxygen and BiPAP HS Anemia, macrocytic -Hgb continues to trend down. -B12, ferritin, folate - normal; will check iron -check stool for occult blood Leukocytosis -resolved -repeat CBC in am Hypernatremia -mild, monitor closely especially since she's on Lasix -repeat BMP in am CKD -renal function improved with cr down to 1.1 A-fib -on Eliquis -rate fairly well controlled on diltiazem Behavioral disturbance -Psych notes reviewed. Seroquel increased. 01/21/17 16:33 CHF -Weight slowly increasing - 51.1 kg -Breathing at baseline -JASON watkins ordered -monitor fluid status closely Hypernatremia -increased to 147 -Lasix dose reduced Macrocytic anemia -iron level pending -stool for occult blood - neg -hgb increased to 8.8 Psych -HS seroquel increased
[2017-01-21] MEDS ORDERED: QUETIAPINE 50 MG TABLET PO SCH (21:00)
[2017-01-21] MEDS: OLANZapine 5 MG TABLET PO SCH (21:15)
[2017-01-21] MEDS: MELATONIN 1 MG TABLET PO SCH (21:28)
[2017-01-22] MEDS: LORazepam INTENSOL 1mg/0.5ml ORAL LIQUID SL PRN (00:10)
[2017-01-22] MEDS: IPRATROPIUM/ALBUTEROL 2.5mg-0.5mg/3ml NEB IH SCH ×2 (10:15→20:30)
--- NOTE | 2017-01-22 10:27 | Progress Note ---
<RosalbaReanna D - Last Filed: 01/22/17 12:45> Subjective: I received a phone call from one of the staff nurses - she was hypoxic and was placed on BiPAP around 0615 this morning with stabilization of respiratory status. Her BiPAP was removed so she could eat breakfast but within 10 minutes she was hypoxic again on O2 per NC. The nurse increased O2 flow rate and by the time I arrived it was up to 8L and she was satting in the mid-80s. She was tachypneic and using accessory muscles. She denied chest pain/pressure. She was able to speak short sentences. She was not diaphoretic and she denied nausea. RT was contacted to put her back on BiPAP. Objective Vital signs: Temp Pulse Resp BP Pulse Ox 98.8 F 98 18 140/71 H 97 01/21/17 19:56 01/21/17 19:56 01/21/17 21:10 01/21/17 19:56 01/21/17 21:10 Weight: 51.1 kg - Constitutional Present: moderate distress, thin, cooperative - Routine HEENT Exam Eye: Absent: conjunctival icterus - Routine Respiratory Exam Present: accessory muscle use, rales, diminished air movement (on right) - Routine Cardiovascular Exam Present: irregularly irregular (tachycardic 110+) - Routine Abdominal Exam Present: soft, non tender - Routine Extremities Exam Present: edema (2+ BLE), pulses intact. Absent: normal capillary refill ( delayed at 3 sec.) - Routine Musculoskeletal Exam Musculoskeletal: moving extremities well - Routine Skin Exam Present: intact, dry, warm - Routine Neurological Exam Present: alert - Routine Psychiatric Exam Present: normal affect Results - Labs CBC & Chem 7: 01/22/17 10:16 01/22/17 10:16 Assessment and Plan (1) Neurocognitive disorder Current visit: Yes Status: Acute (2) Hx of pleural effusion Current visit: Yes Status: Acute (3) Coronary artery disease Current visit: Yes Status: Acute (4) A-fib Current visit: Yes Status: Acute (5) Chronic anticoagulation Current visit: Yes Status: Acute (6) Diastolic heart failure Current visit: Yes Status: Acute (7) Anemia Current visit: Yes Status: Acute (8) Mitral regurgitation Current visit: Yes Status: Acute (9) HTN (hypertension) Current visit: Yes Status: Acute (10) Respiratory failure Current visit: Yes Status: Acute Assessment and Plan: CHF with acute hypoxic respiratory failure -hypoxic on 10L in the mid-80s. RT at bedside to place back on BiPAP. -ABG and stat CXR ordered. Check EKG and troponin. -Bumex 1 mg IV x1 now Pt improved on BiPAP - satting 100% Discussed with Dr. Chavez, who also evaluated the patient ABG showed resp acidosis - should improve with BiPAP CXR personally reviewed - severe pulm edema Labs reviewed - hypernatremia had improved Sepsis Assessment - Evaluation Sepsis screening result: No Definite Risk - Focused Exam Respiratory exam: Present: CTA bilaterally Cardiovascular exam: Present: RRR, S1, S2 Capillary refill: > 3 Seconds Hospital Course Summary Disclaimer: The visit summary below is not to be considered part of the above Progress Note. Hospital Course: 01/16/17 09:56 Agree with admission to [facility] for further psychiatric evaluation and treatment. Continue on chronic oxygen at 4 liters by nasal cannula as well as CPAP at night. Continue with scheduled DuoNeb breathing treatments twice a day Chronic cardiac medications including Lasix 60 milligrams daily, Cardizem 180 milligrams daily Continue chronic anticoagulation, Eliquis 2.5 milligrams twice a day 01/19/17 09:51 CHF -CXR on 01/17 showed moderate CHF with pleural effusions. Crackles heard today on exam and 1-2+ BLE edema. Repeat CXR now. -may need to add an extra dose of Lasix - currently takes 60 mg daily. -weight is up about 0.5 kg. -continue oxygen and BiPAP HS Anemia, macrocytic -Hgb continues to trend down. -B12, ferritin, folate - normal; will check iron -check stool for occult blood Leukocytosis -resolved -repeat CBC in am Hypernatremia -mild, monitor closely especially since she's on Lasix -repeat BMP in am CKD -renal function improved with cr down to 1.1 A-fib -on Eliquis -rate fairly well controlled on diltiazem Behavioral disturbance -Psych notes reviewed. Seroquel increased. 01/21/17 16:33 CHF -Weight slowly increasing - 51.1 kg -Breathing at baseline -JASON watkins ordered -monitor fluid status closely Hypernatremia -increased to 147 -Lasix dose reduced Macrocytic anemia -iron level pending -stool for occult blood - neg -hgb increased to 8.8 Psych -HS seroquel increased 01/22/17 12:47 HF with acute hypoxic respiratory failure -hypoxic on 10L in the mid-80s. RT at bedside to place back on BiPAP. -ABG and stat CXR ordered. Check EKG and troponin. -Bumex 1 mg IV x1 now Pt improved on BiPAP - satting 100% Discussed with Dr. Chavez, who also evaluated the patient ABG showed resp acidosis - should improve with BiPAP CXR personally reviewed - severe pulm edema Labs reviewed - hypernatremia had improved <Tere Chavez - Last Filed: 01/22/17 21:04> Objective Vital signs: Temp Pulse Resp BP Pulse Ox 98.5 F 106 H 16 113/78 97 01/22/17 16:00 01/22/17 16:00 01/22/17 20:35 01/22/17 16:00 01/22/17 20:35 Results - Labs CBC & Chem 7: 01/22/17 10:16 01/22/17 10:16 - ABG Interpretation ABG results: 01/22/17 10:16 ABG pH 7.300 L ABG pCO2 63 H* ABG pO2 49 L ABG HCO3 31 H ABG Total CO2 32.9 H ABG O2 Saturation 80.0 L ABG Base Excess 3.0 H Assessment and Plan (1) Neurocognitive disorder Current visit: Yes Status: Acute (2) Hx of pleural effusion Current visit: Yes Status: Acute (3) Coronary artery disease Current visit: Yes Status: Acute (4) A-fib Current visit: Yes Status: Acute (5) Chronic anticoagulation Current visit: Yes Status: Acute (6) Diastolic heart failure Current visit: Yes Status: Acute (7) Anemia Current visit: Yes Status: Acute (8) Mitral regurgitation Current visit: Yes Status: Acute (9) HTN (hypertension) Current visit: Yes Status: Acute (10) Respiratory failure Current visit: Yes Status: Acute Assessment and Plan: 01/22/2017-I reviewed this chart, the patient history, and the [employer] CHIEF's/PA's documented findings as above. We discussed and formulated the assessment and plan as above with the additions below.-Dr. Chavez I did see the patient multiple times throughout the day today. She was progressively improving throughout the day. She was on BiPAP most of the morning and early afternoon. She did initially have A. fib with RVR with heart rate up to the 140s. She was given her oral diltiazem and heart rate improved markedly. Chest x-ray did show pulmonary edema and she was given IV Bumex and then later in the afternoon was given her oral Lasix. She did have good diuresis. BiPAP did help with her pulmonary edema as well. She was able to be weaned off of BiPAP for supper and was sitting up in the recliner in the TV room eating supper. She was on 6 L of oxygen with O2 sat of 98%. Heart rate was down to 101. They were able to wean down her oxygen. On exam this afternoon she is alert and in no acute distress. She denies any chest pains or palpitations. She denies feeling short of breath. She states she is hungry. She states she doesn't know why she has to be on psychiatric medications because she is very happy. Chest reveals crackles in the mid lung tamayo. Cardiovascular reveals a borderline tachycardic rate with an irregular rhythm. Abdomen is soft and nontender. Extremities reveal trace edema. Impression/plan A. fib with RVR-improved. A. fib is chronic. We'll continue to give Cardizem for rate control. Regarding pulmonary edema-improved with IV Bumex and oral Lasix as well as BiPAP. Continue BiPAP tonight and then we'll see if the patient needs it during the day tomorrow. The patient did appear to be improving and the decision was made not to transfer to inpatient status in acute care. Continue with anticoagulation for chronic A. fib Recheck CBC and basic metabolic profile tomorrow. Lasix dose had been decreased a couple of days ago because of elevated sodium. She will likely need her usual dose of Lasix 60 mg daily and that was reordered for tomorrow. If she still having difficulties with pulmonary edema may need IV diuretic instead. Sepsis Assessment - Focused Exam Vital Signs Temp Pulse Resp BP Pulse Ox 01/22/17 20:35 16 97 01/22/17 16:00 98.5 F 106 H 20 113/78 01/22/17 13:06 131 H 22 145/74 H 95 01/22/17 10:25 111 H 24 131/88 87 L 01/22/17 10:15 20 99 Hospital Course Summary Disclaimer: The visit summary below is not to be considered part of the above Progress Note.
--- NOTE | 2017-01-22 10:28 | XRay Report ---
Indication: hypoxia PROCEDURE: XR chest 1V: Encounter: Initial Comparison: January 19, 2017 Findings: Interval worsening of pulmonary edema which is now severe. Increasing bilateral pleural effusions, moderate on the right and small on the left. No pneumothorax. Cardiac silhouette remains enlarged. Mediastinal contours are widened but unchanged. Impression: Worsening severe pulmonary edema. .
[2017-01-22] MEDS: OMEPRAZOLE 20 MG CAPSULE PO SCH (12:33)
[2017-01-22] MEDS: acetaZOLAMIDE SR 500 MG CAPSULE PO SCH (12:33)
[2017-01-22] MEDS: APIXABAN 5 MG TABLET PO SCH ×2 (12:34→21:48)
[2017-01-22] MEDS: ASPIRIN *EC* 81 MG TABLET PO SCH (12:34)
[2017-01-22] MEDS: DOCUSATE SODIUM 100 MG CAPSULE PO SCH ×2 (12:35→21:48)
[2017-01-22] MEDS: FERROUS SULFATE 324 MG TABLET PO SCH ×2 (12:35→19:21)
[2017-01-22] MEDS: FUROSEMIDE 40 MG TABLET PO SCH (12:35)
[2017-01-22] MEDS: BENZONATATE 100 MG CAPSULE PO SCH ×2 (12:36→21:48)
[2017-01-22] MEDS: GUAIFENESIN LA 600 MG TABLET PO SCH ×2 (12:36→21:51)
[2017-01-22] MEDS: POLYETHYL GLYCOL 3350 17gm PACKET PO SCH (12:36)
[2017-01-22] MEDS ORDERED: SALINE FLUSH 10ml SYRINGE IVF PRN (14:15)
--- NOTE | 2017-01-22 15:02 | Neuropsych Progress Note ---
[facility] Subjective Date: 01/22/17 - Sujective/Severity of Illness Medications: Acetaminophen (Tylenol) 650 mg PO Q4H PRN PRN Reason: Pain Acetazolamide (Diamox Sequels) 500 mg PO DAILY [facility] Last Admin: 01/22/17 12:33 Dose: 500 mg Albuterol/Ipratropium (Duoneb) 3 ml IH BID [facility] Last Admin: 01/22/17 10:15 Dose: 3 ml Albuterol/Ipratropium (Duoneb) 3 ml IH Q2H PRN PRN Reason: Shortness of air Last Admin: 01/16/17 15:14 Dose: 3 ml Apixaban (Eliquis) 2.5 mg PO BID [facility] Last Admin: 01/22/17 12:34 Dose: 2.5 mg Aspirin (Ecotrin) 81 mg PO DAILY [facility] Last Admin: 01/22/17 12:34 Dose: 81 mg Benzonatate (Tessalon Perles) 100 mg PO BID [facility] Last Admin: 01/22/17 12:36 Dose: 100 mg Bisacodyl (Dulcolax) 10 mg RECTALLY DAILY PRN PRN Reason: Constipation Cholecalciferol (Vitamin D-3) 1,000 unit PO DAILY [facility] Last Admin: 01/22/17 12:36 Dose: 1,000 unit Diltiazem HCl (Cardizem Cd) 180 mg PO DAILY [facility] Last Admin: 01/22/17 12:32 Dose: 180 mg Docusate Sodium (Colace) 100 mg PO BID [facility] Last Admin: 01/22/17 12:35 Dose: Not Given Ferrous Sulfate (Feosol) 324 mg PO BIDWM [facility] Last Admin: 01/22/17 12:35 Dose: 324 mg Furosemide (Lasix) 40 mg PO DAILY [facility] Last Admin: 01/22/17 12:35 Dose: 40 mg Guaifenesin (Mucinex La) 600 mg PO BID [facility] Last Admin: 01/22/17 12:36 Dose: 600 mg Haloperidol (Haldol) 0.5 mg PO Q6H PRN PRN Reason: Extreme agitation Haloperidol Lactate (Haldol) 0.5 mg IM Q6H PRN PRN Reason: Extreme agitation Lorazepam (Ativan) 0.5 mg PO Q6H PRN PRN Reason: Extreme agitation Last Admin: 01/17/17 23:19 Dose: 0.5 mg Lorazepam (Ativan Inj) 0.5 mg IM Q6H PRN PRN Reason: Extreme agitation Lorazepam (Ativan Intensol) 0.5 mg SL Q6H PRN Last Admin: 01/22/17 00:10 Dose: 0.5 mg Magnesium Hydroxide (Mom) 30 ml PO PRN PRN PRN Reason: Constipation Melatonin (Melatonin) 3 mg PO 2100 [facility] Last Admin: 01/21/17 21:28 Dose: 3 mg Olanzapine (Zyprexa) 5 mg PO HS [facility] Last Admin: 01/21/17 21:15 Dose: 5 mg Omeprazole (Prilosec) 20 mg PO ACB [facility] Last Admin: 01/22/17 12:33 Dose: 20 mg Polyethylene Glycol (Miralax) 17 gm PO DAILY [facility] Last Admin: 01/22/17 12:36 Dose: Not Given Sodium Chloride (Iv Flush) 10 - 80 ml IVF PRN PRN PRN Reason: Flushing Trolamine Salicylate (Aspercreme) 1 applic TOP Q8H PRN PRN Reason: Pain Subjective: Patient seen and chart reviewed. Case discussed with treatment team. On interview, patient is wearing BiPap as she was found to be hypoxic with bilateral pulmonary edema today by medical team after worsening agitation overnight. Encouraged patient to speak minimally as O2 level tends to drop the more she talks. She reports feeling better physically and that her mood is good. She feels she slept better last night after switching from Seroquel to Zyprexa. Still had interrupted sleep but got ~5 hours altogether, an improvement from previous even with worsening medical condition overnight. Patient denies any SI, HI or AVH. Patient denies any adverse side effects related to psychotropic medications. Nursing staff report patient was irritable and demanding overnight. She will threaten to act out and then do it (similar to what she did at rehab) and so I believe this is more intentional behavior than impulse control difficulty. Behavioral management discussed in team meeting today. Appetite is fair. No psychotropic PRNs required in past 24 hours. Asked staff to minimize PRN Ativan use to avoid further decrease in O2. Start Time: 16:30 Stop Time: 16:50 Mental Status Exam Vitals: Last Vital Signs Temp 98.2 F 01/22/17 08:00 Pulse 131 H 01/22/17 13:06 Resp 22 06/09/17 13:06 BP 145/74 H 01/22/17 13:06 Pulse Ox 95 01/22/17 13:06 Height: 1.47 m Weight: 50.4 kg - Mental Status Exam Muscle Strength/Tone: Normal Dressing: Casual Grooming: Fair Attitude: Manipulative, Argumentative (mild) Motor Activity: Retardation Eye Contact: Fair Speech: Slowed Volume: Soft Rhythm: Appropriate Rhythm Orientation: Oriented X4 Mood: Irritable (intermittent, mild) Rate of Thoughts: Delayed Thought Organization: Organized, Perseverations (on daughter's mental illness, delusional thoughts), [place] Associations: Illogical Abstract Reasoning: Poor abstract reasoning Thought Content: Delusions Perception/Psychotic: Hx psychosis, not current Current Hallucinations: Visual (per staff) Language: Naming Intact Fund of Knowledge: Poor fund of knowledge Memory: Poor-immediate, Poor-recent Suicidal Ideation: Denies Homicidal Ideation: Denies Insight: Limited Judgement: Limited Impulse Control: Poor - Laboratory Result Diagrams: 01/22/17 10:16 01/22/17 10:16 Laboratory Results - last 24 hr 01/21/17 01/22/17 01/22/17 07:10 10:16 10:16 WBC 9.3 RBC 3.34 L Hgb 9.8 L D Hct 34.3 L D MCV 102.7 H MCH 29.3 MCHC 28.6 L RDW Std Deviation 59.6 H Plt Count 333 MPV 10.0 Immature Gran % (Auto) 0.2 Neut % (Auto) 85.4 H Lymph % (Auto) 7.5 L [place] % (Auto) 5.9 Eos % (Auto) 0.6 Baso % (Auto) 0.4 Neut # 7.9 H Lymph # 0.7 L [place] # 0.6 Eos # 0.1 Baso # 0.0 Abs Immat Gran (auto) 0.02 Neutrophils % (Manual) 86.0 H Band Neutrophils % 2.0 Lymphocytes % (Manual) 6.0 L Monocytes % (Manual) 5.0 Eosinophils % (Manual) 1.0 Neutrophils # (Manual) 8.0 H Band Neutrophils # 0.2 Lymphocytes # (Manual) 0.6 L Monocytes # (Manual) 0.5 Eosinophils # (Manual) 0.1 RBC Morph Comment 1+ marty cells ABG pH ABG pCO2 ABG pO2 ABG HCO3 ABG Total CO2 ABG O2 Saturation ABG Base Excess O2 Delivery Method FiO2 (liters per min) Turbidity < 20.0 Sodium 145 H Potassium 4.1 Chloride 106 Carbon Dioxide 29 Anion Gap 10 BUN 24.0 H Creatinine 0.7 D GFR Calculation 79 BUN/Creatinine Ratio 34 H Glucose 94 Calculated Osmolality 283 H Calcium 8.9 Iron 33 L Icterus Index < 2.0 Troponin I < 0.012 Specimen Hemolysis < 15.0 01/22/17 10:16 WBC RBC Hgb Hct MCV MCH MCHC RDW Std Deviation Plt Count MPV Immature Gran % (Auto) Neut % (Auto) Lymph % (Auto) [place] % (Auto) Eos % (Auto) Baso % (Auto) Neut # Lymph # [place] # Eos # Baso # Abs Immat Gran (auto) Neutrophils % (Manual) Band Neutrophils % Lymphocytes % (Manual) Monocytes % (Manual) Eosinophils % (Manual) Neutrophils # (Manual) Band Neutrophils # Lymphocytes # (Manual) Monocytes # (Manual) Eosinophils # (Manual) RBC Morph Comment ABG pH 7.300 L ABG pCO2 63 H* ABG pO2 49 L ABG HCO3 31 H ABG Total CO2 32.9 H ABG O2 Saturation 80.0 L ABG Base Excess 3.0 H O2 Delivery Method Nasal cannula, liter FiO2 (liters per min) 8 Turbidity Sodium Potassium Chloride Carbon Dioxide Anion Gap BUN Creatinine GFR Calculation BUN/Creatinine Ratio Glucose Calculated Osmolality Calcium Iron Icterus Index Troponin I Specimen Hemolysis Assessment and Plan (1) Delirium due to multiple etiologies Current visit: Yes Status: Acute (2) Major neurocognitive disorder Problem details: With behavioral disturbance Current visit: Yes Status: Acute (3) A-fib Current visit: Yes Status: Acute (4) Anemia Current visit: Yes Status: Acute (5) Chronic anticoagulation Current visit: Yes Status: Acute (6) Coronary artery disease Current visit: Yes Status: Acute (7) Diastolic heart failure Current visit: Yes Status: Acute (8) HTN (hypertension) Current visit: Yes Status: Acute (9) Hx of pleural effusion Current visit: Yes Status: Acute (10) Mitral regurgitation Current visit: Yes Status: Acute (11) Respiratory failure Current visit: Yes Status: Acute 01/22/17: Continue Zyprexa 5mg PO q HS to target sleep, delusions. Suggest staff minimize PRN Ativan use and employ behavioral management strategies for irritable/demanding behavior if possible. Monitor mood, behavior and response to treatment.
[2017-01-22] MEDS: OLANZapine 5 MG TABLET PO SCH (21:48)
[2017-01-22] MEDS: MELATONIN 1 MG TABLET PO SCH (21:49)
--- NOTE | 2017-01-23 06:18 | Neuropsych Progress Note ---
[facility] Subjective Date: 01/23/17 - Sujective/Severity of Illness Medications: Acetaminophen (Tylenol) 650 mg PO Q4H PRN PRN Reason: Pain Acetazolamide (Diamox Sequels) 500 mg PO DAILY [facility] Last Admin: 01/22/17 12:33 Dose: 500 mg Albuterol/Ipratropium (Duoneb) 3 ml IH BID [facility] Last Admin: 01/22/17 20:30 Dose: 3 ml Albuterol/Ipratropium (Duoneb) 3 ml IH Q2H PRN PRN Reason: Shortness of air Last Admin: 01/16/17 15:14 Dose: 3 ml Apixaban (Eliquis) 2.5 mg PO BID [facility] Last Admin: 01/22/17 21:48 Dose: 2.5 mg Aspirin (Ecotrin) 81 mg PO DAILY [facility] Last Admin: 01/22/17 12:34 Dose: 81 mg Benzonatate (Tessalon Perles) 100 mg PO BID [facility] Last Admin: 01/22/17 21:48 Dose: 100 mg Bisacodyl (Dulcolax) 10 mg RECTALLY DAILY PRN PRN Reason: Constipation Cholecalciferol (Vitamin D-3) 1,000 unit PO DAILY [facility] Last Admin: 01/22/17 12:36 Dose: 1,000 unit Diltiazem HCl (Cardizem Cd) 180 mg PO DAILY [facility] Last Admin: 01/22/17 12:32 Dose: 180 mg Docusate Sodium (Colace) 100 mg PO BID [facility] Last Admin: 01/22/17 21:48 Dose: 100 mg Ferrous Sulfate (Feosol) 324 mg PO BIDWM [facility] Last Admin: 01/22/17 19:21 Dose: Not Given Furosemide (Lasix) 60 mg PO DAILY [facility] Guaifenesin (Mucinex La) 600 mg PO BID [facility] Last Admin: 01/22/17 21:51 Dose: Not Given Haloperidol (Haldol) 0.5 mg PO Q6H PRN PRN Reason: Extreme agitation Haloperidol Lactate (Haldol) 0.5 mg IM Q6H PRN PRN Reason: Extreme agitation Lorazepam (Ativan) 0.5 mg PO Q6H PRN PRN Reason: Extreme agitation Last Admin: 01/17/17 23:19 Dose: 0.5 mg Lorazepam (Ativan Inj) 0.5 mg IM Q6H PRN PRN Reason: Extreme agitation Lorazepam (Ativan Intensol) 0.5 mg SL Q6H PRN Last Admin: 01/22/17 00:10 Dose: 0.5 mg Magnesium Hydroxide (Mom) 30 ml PO PRN PRN PRN Reason: Constipation Melatonin (Melatonin) 3 mg PO 2100 [facility] Last Admin: 01/22/17 21:49 Dose: 3 mg Olanzapine (Zyprexa) 5 mg PO HS [facility] Last Admin: 01/22/17 21:48 Dose: 5 mg Omeprazole (Prilosec) 20 mg PO ACB [facility] Last Admin: 01/22/17 12:33 Dose: 20 mg Polyethylene Glycol (Miralax) 17 gm PO DAILY [facility] Last Admin: 01/22/17 12:36 Dose: Not Given Sodium Chloride (Iv Flush) 10 - 80 ml IVF PRN PRN PRN Reason: Flushing Last Admin: 01/22/17 10:25 Dose: 20 ml Trolamine Salicylate (Aspercreme) 1 applic TOP Q8H PRN PRN Reason: Pain Subjective: Pt. seen, chart reviewed. Case discussed w RN. 86 year old female with dementia, and a host of medical problems here from a rehab facility in [place]. She has been hospitalized 5 times since October 2016, cardiac, EGD, heart failure, etc. She has needed admitted here due to delusions and associated behaviors. She had a spell of desaturation yesterday. RN reports they have a hard time getting her to keep the BIPAP on. RN reports the biggest problem lately has been she is not sleeping at night She is on zyprexa and to target sleep/delusional behaviors. She has been eating a bit better per nursing. However, she only slept 2 hours last night but was resting quietly upon my visit this AM. RN reports she's been well oriented and knows why she's here. Her reports of her behaviors leading to her admission do sound to have been behavioral rather than delusional. Rn reports she's having no SI, HI, AH, VH here the last day that they're aware of. Ambulates with assist and walker. Start Time: 06:00 Stop Time: 06:15 Mental Status Exam Vitals: Last Vital Signs Temp 98.7 F 01/22/17 23:16 Pulse 86 01/22/17 23:16 Resp 20 01/22/17 23:16 BP 126/72 01/22/17 23:16 Pulse Ox 96 01/22/17 23:16 Height: 4 ft 10 in Weight: 50.4 kg - Mental Status Exam Muscle Strength/Tone: Normal Dressing: Casual Grooming: Fair Attitude: Manipulative, Argumentative (mild) Motor Activity: Retardation Eye Contact: Fair Speech: Slowed Volume: Soft Rhythm: Appropriate Rhythm Orientation: Oriented X4 Mood: Irritable (intermittent, mild) Rate of Thoughts: Delayed Thought Organization: Organized, Perseverations (on daughter's mental illness, delusional thoughts), [place] Associations: Illogical Abstract Reasoning: Poor abstract reasoning Thought Content: Delusions Perception/Psychotic: Hx psychosis, not current Language: Naming Intact Fund of Knowledge: Poor fund of knowledge Memory: Poor-immediate, Poor-recent Suicidal Ideation: Denies Homicidal Ideation: Denies Insight: Limited Judgement: Limited Impulse Control: Poor - Laboratory Result Diagrams: 01/23/17 04:56 01/23/17 04:56 Laboratory Results - last 24 hr 01/22/17 01/22/17 01/22/17 10:16 10:16 10:16 WBC 9.3 RBC 3.34 L Hgb 9.8 L D Hct 34.3 L D MCV 102.7 H MCH 29.3 MCHC 28.6 L RDW Std Deviation 59.6 H Plt Count 333 MPV 10.0 Immature Gran % (Auto) 0.2 Neut % (Auto) 85.4 H Lymph % (Auto) 7.5 L Finney % (Auto) 5.9 Eos % (Auto) 0.6 Baso % (Auto) 0.4 Neut # 7.9 H Lymph # 0.7 L Finney # 0.6 Eos # 0.1 Baso # 0.0 Abs Immat Gran (auto) 0.02 Neutrophils % (Manual) 86.0 H Band Neutrophils % 2.0 Lymphocytes % (Manual) 6.0 L Monocytes % (Manual) 5.0 Eosinophils % (Manual) 1.0 Neutrophils # (Manual) 8.0 H Band Neutrophils # 0.2 Lymphocytes # (Manual) 0.6 L Monocytes # (Manual) 0.5 Eosinophils # (Manual) 0.1 RBC Morph Comment 1+ marty cells ABG pH 7.300 L ABG pCO2 63 H* ABG pO2 49 L ABG HCO3 31 H ABG Total CO2 32.9 H ABG O2 Saturation 80.0 L ABG Base Excess 3.0 H O2 Delivery Method Nasal cannula, liter FiO2 (liters per min) 8 Turbidity < 20.0 Sodium 145 H Potassium 4.1 Chloride 106 Carbon Dioxide 29 Anion Gap 10 BUN 24.0 H Creatinine 0.7 D GFR Calculation 79 BUN/Creatinine Ratio 34 H Glucose 94 Calculated Osmolality 283 H Calcium 8.9 Icterus Index < 2.0 Troponin I < 0.012 Specimen Hemolysis < 15.0 01/23/17 01/23/17 04:56 04:56 WBC 6.9 RBC 2.88 L Hgb 8.3 L D Hct 30.0 L D MCV 104.2 H MCH 28.8 MCHC 27.7 L RDW Std Deviation 60.3 H Plt Count 318 MPV 10.0 Immature Gran % (Auto) 0.1 Neut % (Auto) 82.6 H Lymph % (Auto) 8.2 L Finney % (Auto) 6.9 Eos % (Auto) 1.9 Baso % (Auto) 0.3 Neut # 5.7 Lymph # 0.6 L Finney # 0.5 Eos # 0.1 Baso # 0.0 Abs Immat Gran (auto) 0.01 Neutrophils % (Manual) Band Neutrophils % Lymphocytes % (Manual) Monocytes % (Manual) Eosinophils % (Manual) Neutrophils # (Manual) Band Neutrophils # Lymphocytes # (Manual) Monocytes # (Manual) Eosinophils # (Manual) RBC Morph Comment ABG pH ABG pCO2 ABG pO2 ABG HCO3 ABG Total CO2 ABG O2 Saturation ABG Base Excess O2 Delivery Method FiO2 (liters per min) Turbidity < 20.0 Sodium 145 H Potassium 3.5 L Chloride 104 Carbon Dioxide 32 H Anion Gap 9 BUN 25.0 H Creatinine 0.8 GFR Calculation 68 BUN/Creatinine Ratio 31 H Glucose 86 Calculated Osmolality 282 H Calcium 8.2 L Icterus Index < 2.0 Troponin I Specimen Hemolysis < 15.0 Assessment and Plan (1) Dementia with behavioral disturbance Qualifiers: Dementia type: unspecified type Qualified Code(s): F03.91 - Unspecified dementia with behavioral disturbance Current visit: Yes Status: Acute (2) Major neurocognitive disorder Problem details: With behavioral disturbance Current visit: Yes Status: Acute 6.10.17: Start Mirtazapine 7.5mg PO q HS to further target sleep/mood. Add Mirtazapine 7.5mg PO q HS to further target sleep, mood, appetite.
[2017-01-23] MEDS: OMEPRAZOLE 20 MG CAPSULE PO SCH (06:38)
[2017-01-23] MEDS: FERROUS SULFATE 324 MG TABLET PO SCH ×3 (08:17→18:34)
[2017-01-23] MEDS: acetaZOLAMIDE SR 500 MG CAPSULE PO SCH (08:18)
[2017-01-23] MEDS: APIXABAN 5 MG TABLET PO SCH ×2 (08:18→20:35)
[2017-01-23] MEDS: DOCUSATE SODIUM 100 MG CAPSULE PO SCH ×2 (08:18→20:34)
[2017-01-23] MEDS: GUAIFENESIN LA 600 MG TABLET PO SCH (08:19)
[2017-01-23] MEDS: POLYETHYL GLYCOL 3350 17gm PACKET PO SCH (08:19)
[2017-01-23] MEDS: BENZONATATE 100 MG CAPSULE PO SCH ×2 (08:19→20:35)
[2017-01-23] MEDS: ASPIRIN *EC* 81 MG TABLET PO SCH (08:19)
[2017-01-23] MEDS: FUROSEMIDE 40 MG TABLET PO SCH (08:27)
[2017-01-23] MEDS: IPRATROPIUM/ALBUTEROL 2.5mg-0.5mg/3ml NEB IH SCH ×3 (10:00→19:50)
[2017-01-23] MEDS ORDERED: METHYLPREDNISOLONE SOD SUCC 125mg/2ml INJECTION IM ONE (14:20)
--- NOTE | 2017-01-23 14:31 | Progress Note ---
<BrianLuciana Mary - Last Filed: 01/23/17 14:53> Subjective: Pam is seen today in follow up. She remains dyspneic. Did not wear the Bipap much last night "I couldn't sleep." She is requiring elevated O2 flow of around 6L/NC. She did get a dose of Bumex yesterday. CXR did show significant fluid overload and I suspect a large right pleural effusion. She tells me today that she "does not need mood stabilizers". Is not wanting those medications. Daughter reported to staff that the guiafenesin keeps her "keyed up" in the form of Mucinex- requested it be stopped. I did review her records from [facility]- She has required multiple right thoracentesis in the last few weeks due to pleural effusions. She did have around 900ml removed from the right side She has been seriously ill, with several readmissions related to respiratory failure, likely COPD, and significant fluid overload. She has recently had mitral valve clipping by Dr. Loya in November. Prior to this , she had been a very active, functional lady. Objective Vital signs: Temp Pulse Resp BP Pulse Ox 98.4 F 104 H 16 117/67 97 01/23/17 07:51 01/23/17 07:51 01/23/17 10:00 01/23/17 07:51 01/23/17 10:00 Rhythm: Atrial Fibrillation with RVR Weight: 50.4 kg - Constitutional Present: mild distress, thin, cooperative (Irritable) - Routine HEENT Exam Head: Present: normocephalic, atraumatic Eye: Present: EOMI, PERRL - Routine Respiratory Exam Present: rales, respiratory distress (Moderate SOA at rest. Wheezing/Coarse throughout. Wearing O2. Not wearing Bipap. ), wheezes, crackles - Routine Cardiovascular Exam Present: S1, S2. Absent: RRR - Routine Abdominal Exam Present: soft, non distended, non tender - Routine Extremities Exam Present: no edema. Absent: edema - Routine Neurological Exam Present: alert, moving all extremities - Routine Psychiatric Exam Comments: Irritable. Alert. Fairly conversive. Results - Labs CBC & Chem 7: 01/23/17 04:56 01/23/17 04:56 - ABG Interpretation ABG results: 01/22/17 10:16 ABG pH 7.300 L ABG pCO2 63 H* ABG pO2 49 L ABG HCO3 31 H ABG Total CO2 32.9 H ABG O2 Saturation 80.0 L ABG Base Excess 3.0 H - Impressions Date of Exam: 01/22/17 Ordering Provider: Reanna Navarrete APRN Type of Exam(s): XR chest 1V Reason for Exam(s): hypoxia Indication: hypoxia PROCEDURE: XR chest 1V: Encounter: Initial Comparison: January 19, 2017 Findings: Interval worsening of pulmonary edema which is now severe. Increasing bilateral pleural effusions, moderate on the right and small on the left. No pneumothorax. Cardiac silhouette remains enlarged. Mediastinal contours are widened but unchanged. Impression: Worsening severe pulmonary edema. . I have viewed the films- very congested, significant pleural effusion. Assessment and Plan (1) Neurocognitive disorder Current visit: Yes Status: Deleted (2) Hx of pleural effusion Current visit: Yes Status: Acute (3) Coronary artery disease Current visit: Yes Status: Acute (4) A-fib Current visit: Yes Status: Acute (5) Chronic anticoagulation Current visit: Yes Status: Acute (6) Diastolic heart failure Current visit: Yes Status: Acute (7) Anemia Current visit: Yes Status: Acute (8) Mitral regurgitation Current visit: Yes Status: Acute s/p Mitral Clip x2 in November by Dr. Loya (9) HTN (hypertension) Current visit: Yes Status: Acute (10) Respiratory failure Current visit: Yes Status: Acute Acute on chronic- Normal O2 at 2L at home Assessment and Plan: 01/23/17-Medical team Pt. reports feeling a little better today. She is still very wheezy. Did not wear Bipap last night as she couldnt sleep. Weight is down about 1 lb since yesterday. Chart has been extensively reviewed. D/W Dr. Chavez as well. Will obtain CT of the chest to further evaluate effusions- may need repeat thoracentesis. Need to stop Diamox given her known resp. failure with acidosis. Increase Lasix to 60 mg AM, 40mg PM. Suspect a strong COPD component- given IM steroid now and then PO taper. May exacerbate irritability, but we need to get her breathing better. Repeat labs in AM. If no significant improvement, we may need to move to medical floor or transfer to [facility] for continuation of care and Pulm assistance. Continue Duoneb- increase to QID. Add pulmicort. DC Mucinex due to reported SE. Daughter states that she could take liquid guiafenesin if needed. Extensive time spent on this patient in the review of the records, viewing images, D/W staff and Dr. Chavez (> 45 minutes). Sepsis Assessment - Evaluation Sepsis screening result: No Definite Risk - Focused Exam Vital Signs Temp Pulse Resp BP Pulse Ox 01/23/17 10:00 16 97 01/23/17 07:51 98.4 F 104 H 27 H 117/67 95 Respiratory exam: Present: CTA bilaterally Cardiovascular exam: Present: RRR, S1, S2 Capillary refill: > 3 Seconds Hospital Course Summary Disclaimer: The visit summary below is not to be considered part of the above Progress Note. Hospital Course: 01/16/17 09:56 Agree with admission to [facility] for further psychiatric evaluation and treatment. Continue on chronic oxygen at 4 liters by nasal cannula as well as CPAP at night. Continue with scheduled DuoNeb breathing treatments twice a day Chronic cardiac medications including Lasix 60 milligrams daily, Cardizem 180 milligrams daily Continue chronic anticoagulation, Eliquis 2.5 milligrams twice a day 01/19/17 09:51 CHF -CXR on 01/17 showed moderate CHF with pleural effusions. Crackles heard today on exam and 1-2+ BLE edema. Repeat CXR now. -may need to add an extra dose of Lasix - currently takes 60 mg daily. -weight is up about 0.5 kg. -continue oxygen and BiPAP HS Anemia, macrocytic -Hgb continues to trend down. -B12, ferritin, folate - normal; will check iron -check stool for occult blood Leukocytosis -resolved -repeat CBC in am Hypernatremia -mild, monitor closely especially since she's on Lasix -repeat BMP in am CKD -renal function improved with cr down to 1.1 A-fib -on Eliquis -rate fairly well controlled on diltiazem Behavioral disturbance -Psych notes reviewed. Seroquel increased. 01/21/17 16:33 CHF -Weight slowly increasing - 51.1 kg -Breathing at baseline -JASON watkins ordered -monitor fluid status closely Hypernatremia -increased to 147 -Lasix dose reduced Macrocytic anemia -iron level pending -stool for occult blood - neg -hgb increased to 8.8 Psych -HS seroquel increased 01/22/17 12:47 HF with acute hypoxic respiratory failure -hypoxic on 10L in the mid-80s. RT at bedside to place back on BiPAP. -ABG and stat CXR ordered. Check EKG and troponin. -Bumex 1 mg IV x1 now Pt improved on BiPAP - satting 100% Discussed with Dr. Chavez, who also evaluated the patient ABG showed resp acidosis - should improve with BiPAP CXR personally reviewed - severe pulm edema Labs reviewed - hypernatremia had improved 01/23/17 14:53 01/23/17 14:53 Pt. reports feeling a little better today. She is still very wheezy. Did not wear Bipap last night as she couldnt sleep. Weight is down about 1 lb since yesterday. Chart has been extensively reviewed. D/W Dr. Chavez as well. Will obtain CT of the chest to further evaluate effusions- may need repeat thoracentesis. Need to stop Diamox given her known resp. failure with acidosis. Increase Lasix to 60 mg AM, 40mg PM. Suspect a strong COPD component- given IM steroid now and then PO taper. May exacerbate irritability, but we need to get her breathing better. Repeat labs in AM. If no significant improvement, we may need to move to medical floor or transfer to [facility] for continuation of care and Pulm assistance. Continue Duoneb- increase to QID. Add pulmicort. DC Mucinex due to reported SE. Daughter states that she could take liquid guiafenesin if needed. Extensive time spent on this patient in the review of the records, viewing images, D/W staff and Dr. Chavez (> 45 minutes). <Tere Chavez - Last Filed: 01/23/17 20:17> Objective Vital signs: Temp Pulse Resp BP Pulse Ox 98.4 F 99 18 108/60 97 01/23/17 17:06 01/23/17 17:06 01/23/17 19:50 01/23/17 17:06 01/23/17 19:50 Results - Labs CBC & Chem 7: 01/23/17 04:56 01/23/17 04:56 - ABG Interpretation ABG results: 01/22/17 01/23/17 10:16 18:34 ABG pH 7.300 L 7.310 L ABG pCO2 63 H* 69 H* ABG pO2 49 L 80 ABG HCO3 31 H 35 H ABG Total CO2 32.9 H 36.8 H ABG O2 Saturation 80.0 L 95.0 ABG Base Excess 3.0 H 6.3 H Assessment and Plan (1) Neurocognitive disorder Current visit: Yes Status: Deleted (2) Hx of pleural effusion Current visit: Yes Status: Acute (3) Coronary artery disease Current visit: Yes Status: Acute (4) A-fib Current visit: Yes Status: Acute (5) Chronic anticoagulation Current visit: Yes Status: Acute (6) Diastolic heart failure Current visit: Yes Status: Acute (7) Anemia Current visit: Yes Status: Acute (8) Mitral regurgitation Current visit: Yes Status: Acute (9) HTN (hypertension) Current visit: Yes Status: Acute (10) Respiratory failure Current visit: Yes Status: Acute Assessment and Plan: 01/23/2017-I reviewed this chart, the patient history, and the SENIOR COMPUTER SPECIALIST's/PA's documented findings as above. We discussed and formulated the assessment and plan as above with the additions below.-Dr. Chavez The patient has been needing between 3 and 6 L of oxygen today. Apparently she was on 3 L for only a short period of time. Currently she is on 5 L of oxygen. She denies feeling short of breath and she denies any pain. She refused her BiPAP last night. Her O2 sat is somewhat labile and I think this is secondary to sacral monitor not picking up well with her A. fib. Heart rate has been improved from yesterday and is in the 90s to low 100s. She is requesting to be up walking more frequently. She is eating well. She does agree to use her BiPAP tonight. On exam the patient has decreased breath sounds in the bases with minimal crackles in the mid lung tamayo. No wheezing on my exam. Cardiovascular reveals a borderline tachycardic rate with an irregular rhythm. Abdomen is soft and nontender. Extremities reveal trace pretibial edema. Weight is down about half a kilogram since yesterday but is up overall about 2.3 kg since admission. Repeat chest x-ray this evening shows pulmonary edema and right pleural effusion. Pulmonary edema is improved on my read compared to yesterday. ABG shows pH of 7.31/PCO2 69/by mouth 2 of 80 with O2 sat of 95% on 5 L. Oxygenation is improved markedly compared to yesterday. She does have some increase in CO2 today which I think should improve with using her BiPAP. Will give 1 dose of Bumex now. Lasix was increased today. I did call and talk with the patient's daughter this evening. I did update her on the patient's condition which is a little better compared to yesterday. She has had significant difficulties with pulmonary edema and pleural effusion off and on for the past several months. I discussed options with the patient's daughter regarding the patient's care. At this time she would like to keep her in the hospital here and continue with current treatment and reevaluate tomorrow. If not improving tomorrow could discuss with the patient's buffer machine and consider transfer back to [place] versus continue to manage medically here. If she should worsen she will likely need transfer. Sepsis Assessment - Focused Exam Vital Signs Temp Pulse Resp BP Pulse Ox 01/23/17 19:50 18 97 01/23/17 17:06 98.4 F 99 27 H 108/60 91 01/23/17 15:26 18 98 01/23/17 10:00 16 97 Hospital Course Summary Disclaimer: The visit summary below is not to be considered part of the above Progress Note.
[2017-01-23] MEDS: LORazepam 0.5 MG TABLET PO PRN ×2 (15:37→20:35)
[2017-01-23] MEDS: BUDESONIDE INH.SOLN 0.5mg/2ml NEB AEROSOL SCH (19:50)
[2017-01-23] MEDS: MELATONIN 1 MG TABLET PO SCH (20:34)
[2017-01-23] MEDS: OLANZapine 5 MG TABLET PO SCH (21:42)
[2017-01-23] MEDS ORDERED: MIRTAZAPINE 15 MG TABLET PO SCH (22:00)
[2017-01-24] MEDS: BUDESONIDE INH.SOLN 0.5mg/2ml NEB AEROSOL SCH ×2 (06:50→20:35)
[2017-01-24] MEDS: IPRATROPIUM/ALBUTEROL 2.5mg-0.5mg/3ml NEB IH SCH ×4 (06:50→20:35)
[2017-01-24] MEDS ORDERED: PredniSONE 20 MG TABLET PO SCH (08:00)
[2017-01-24] MEDS ORDERED: PredniSONE 10 MG TABLET PO SCH (08:00)
--- NOTE | 2017-01-24 08:31 | Neuropsych Progress Note ---
Manuelito Subjective Date: 01/24/17 - Sujective/Severity of Illness Medications: Acetaminophen (Tylenol) 650 mg PO Q4H PRN PRN Reason: Pain Albuterol/Ipratropium (Duoneb) 3 ml IH BID [facility] Last Admin: 01/23/17 10:00 Dose: 3 ml Albuterol/Ipratropium (Duoneb) 3 ml IH Q2H PRN PRN Reason: Shortness of air Last Admin: 01/16/17 15:14 Dose: 3 ml Albuterol/Ipratropium (Duoneb) 3 ml IH RTQID [facility] Last Admin: 01/23/17 19:50 Dose: 3 ml Apixaban (Eliquis) 2.5 mg PO BID [facility] Last Admin: 01/23/17 20:35 Dose: 2.5 mg Aspirin (Ecotrin) 81 mg PO DAILY [facility] Last Admin: 01/23/17 08:19 Dose: 81 mg Benzonatate (Tessalon Perles) 100 mg PO BID [facility] Last Admin: 01/23/17 20:35 Dose: 100 mg Bisacodyl (Dulcolax) 10 mg RECTALLY DAILY PRN PRN Reason: Constipation Budesonide (Pulmicort Inhalation) 0.5 mg AEROSOL RTBID [facility] Last Admin: 01/23/17 19:50 Dose: 0.5 mg Cholecalciferol (Vitamin D-3) 1,000 unit PO DAILY [facility] Last Admin: 01/23/17 08:20 Dose: 1,000 unit Diltiazem HCl (Cardizem Cd) 180 mg PO DAILY [facility] Last Admin: 01/23/17 08:18 Dose: 180 mg Docusate Sodium (Colace) 100 mg PO BID [facility] Last Admin: 01/23/17 20:34 Dose: 100 mg Ferrous Sulfate (Feosol) 324 mg PO BIDWM [facility] Last Admin: 01/23/17 18:34 Dose: 324 mg Furosemide (Lasix) 60 mg PO DAILY [facility] Last Admin: 01/23/17 08:27 Dose: 60 mg Furosemide (Lasix) 40 mg PO 1400 JIM Haloperidol (Haldol) 0.5 mg PO Q6H PRN PRN Reason: Extreme agitation Haloperidol Lactate (Haldol) 0.5 mg IM Q6H PRN PRN Reason: Extreme agitation Lorazepam (Ativan) 0.5 mg PO Q6H PRN PRN Reason: Extreme agitation Last Admin: 01/23/17 20:35 Dose: 0.5 mg Lorazepam (Ativan Inj) 0.5 mg IM Q6H PRN PRN Reason: Extreme agitation Lorazepam (Ativan Intensol) 0.5 mg SL Q6H PRN Last Admin: 01/22/17 00:10 Dose: 0.5 mg Magnesium Hydroxide (Mom) 30 ml PO PRN PRN PRN Reason: Constipation Melatonin (Melatonin) 3 mg PO 2100 [facility] Last Admin: 01/23/17 20:34 Dose: 3 mg Mirtazapine (Remeron) 7.5 mg PO HS [facility] Last Admin: 01/23/17 21:41 Dose: 7.5 mg Olanzapine (Zyprexa) 5 mg PO HS [facility] Last Admin: 01/23/17 21:42 Dose: 5 mg Omeprazole (Prilosec) 20 mg PO ACB [facility] Last Admin: 01/23/17 06:38 Dose: 20 mg Polyethylene Glycol (Miralax) 17 gm PO DAILY [facility] Last Admin: 01/23/17 08:19 Dose: 17 gm Potassium Chloride (K-Dur) 20 meq PO BIDWM [facility] Last Admin: 01/23/17 18:33 Dose: 20 meq Prednisone (Deltasone) 40 mg PO WB JIM PRN Reason: Taper Stop: 02/02/17 07:59 Sodium Chloride (Iv Flush) 10 - 80 ml IVF PRN PRN PRN Reason: Flushing Trolamine Salicylate (Aspercreme) 1 applic TOP Q8H PRN PRN Reason: Pain Subjective: Pt. seen. Chart reviewed. Case discussed w RN. RN reports she does better for her on hift compared to the struggles the overnight associate is having with her. They report she can be quite rude, demanding, sarcastic. She reports she only slept 1.5 hours last night. Rn reports she does not really nap during the day either. She got Ativan last night at 2034, which was not terribly helpful either. Start Time: 08:30 Stop Time: 08:45 Mental Status Exam Vitals: Last Vital Signs Temp 97.4 F 01/23/17 23:16 Pulse 100 01/23/17 23:16 Resp 20 01/23/17 23:16 BP 109/65 01/23/17 23:16 Pulse Ox 98 01/23/17 23:16 Height: 4 ft 10 in Weight: 49.8 kg - Mental Status Exam Muscle Strength/Tone: Normal Dressing: Casual Grooming: Fair Attitude: Manipulative, Argumentative (mild) Motor Activity: Retardation Eye Contact: Fair Speech: Slowed Volume: Soft Rhythm: Appropriate Rhythm Orientation: Oriented X4 Mood: Irritable (intermittent, mild) Rate of Thoughts: Delayed Thought Organization: Organized, Perseverations (on daughter's mental illness, delusional thoughts), Challenge Associations: Illogical Abstract Reasoning: Poor abstract reasoning Thought Content: Delusions Perception/Psychotic: Hx psychosis, not current Language: Naming Intact Fund of Knowledge: Poor fund of knowledge Memory: Poor-immediate, Poor-recent Suicidal Ideation: Denies Homicidal Ideation: Denies Insight: Limited Judgement: Limited Impulse Control: Poor - Laboratory Result Diagrams: 01/24/17 00:56 01/24/17 00:59 Laboratory Results - last 24 hr 01/23/17 01/24/17 01/24/17 18:34 00:56 00:59 WBC 6.1 RBC 3.22 L Hgb 9.5 L D Hct 32.9 L MCV 102.2 H MCH 29.5 MCHC 28.9 L RDW Std Deviation 59.4 H Plt Count 358 MPV 10.2 Immature Gran % (Auto) Not performed Neut % (Auto) Not performed Lymph % (Auto) Not performed [place] % (Auto) Not performed Eos % (Auto) Not performed Baso % (Auto) Not performed Neut # Not performed Lymph # Not performed [place] # Not performed Baso # Not performed Abs Immat Gran (auto) Not performed Neutrophils % (Manual) 95.0 H Band Neutrophils % 1.0 Lymphocytes % (Manual) 3.0 L Monocytes % (Manual) 1.0 Neutrophils # (Manual) 5.8 Band Neutrophils # 0.1 Lymphocytes # (Manual) 0.2 L Monocytes # (Manual) 0.1 RBC Morph Comment 1+ macrocytosis ABG pH 7.310 L ABG pCO2 69 H* ABG pO2 80 ABG HCO3 35 H ABG Total CO2 36.8 H ABG O2 Saturation 95.0 ABG Base Excess 6.3 H VBG pH VBG pCO2 VBG pO2 VBG HCO3 VBG Total CO2 VBG O2 Saturation VBG Base Excess O2 Delivery Method Nasal cannula, liter FiO2 (liters per min) 5 Turbidity < 20.0 Sodium 145 H Potassium 4.0 Chloride 105 Carbon Dioxide 29 Anion Gap 11 BUN 29.0 H Creatinine 0.9 GFR Calculation 59 BUN/Creatinine Ratio 32 H Glucose 208 H Calculated Osmolality 291 H Calcium 8.6 Magnesium 2.5 H Icterus Index < 2.0 Specimen Hemolysis 48 H 01/24/17 00:59 WBC RBC Hgb Hct MCV MCH MCHC RDW Std Deviation Plt Count MPV Immature Gran % (Auto) Neut % (Auto) Lymph % (Auto) [place] % (Auto) Eos % (Auto) Baso % (Auto) Neut # Lymph # [place] # Baso # Abs Immat Gran (auto) Neutrophils % (Manual) Band Neutrophils % Lymphocytes % (Manual) Monocytes % (Manual) Neutrophils # (Manual) Band Neutrophils # Lymphocytes # (Manual) Monocytes # (Manual) RBC Morph Comment ABG pH ABG pCO2 ABG pO2 ABG HCO3 ABG Total CO2 ABG O2 Saturation ABG Base Excess VBG pH 7.380 VBG pCO2 54 H VBG pO2 73 H VBG HCO3 32 H VBG Total CO2 33.6 VBG O2 Saturation 94.0 VBG Base Excess 5.4 H O2 Delivery Method Nasal cannula, liter FiO2 (liters per min) 5 Turbidity Sodium Potassium Chloride Carbon Dioxide Anion Gap BUN Creatinine GFR Calculation BUN/Creatinine Ratio Glucose Calculated Osmolality Calcium Magnesium Icterus Index Specimen Hemolysis Assessment and Plan (1) Dementia with behavioral disturbance Qualifiers: Qualified Code(s): F03.91 - Unspecified dementia with behavioral disturbance Current visit: Yes Status: Acute (2) Major neurocognitive disorder Problem details: With behavioral disturbance Current visit: Yes Status: Acute Increase Mirtazapine to 15mg PO q HS. Increase Zyprexa to 7.5mg PO q HS.
--- NOTE | 2017-01-24 08:39 | Progress Note ---
<RosalbaReanna Mary - Last Filed: 01/24/17 08:33> Subjective: Pam was eating breakfast. She had a kleenex box next to her that was covered in her writing. She talked frequently, and was in no respiratory distress. She told me that her repeat CXR showed improvement. She completed full sentences - she recounted her experience at [facility], then her terrible time at the prison she was at. She told me how no one believed her when she tried to explain how terrible it was, or how she couldn't sleep at night. She denied chest pain or any abdominal issues. Objective Vital signs: Temp Pulse Resp BP Pulse Ox 97.4 F 100 20 109/65 98 01/23/17 23:16 01/23/17 23:16 01/23/17 23:16 01/23/17 23:16 01/23/17 23:16 Weight: 49.8 kg - Constitutional Present: mild distress, thin, cooperative (Irritable) - Routine HEENT Exam ENT: Present: mucous membranes moist, oropharynx clear - Routine Respiratory Exam Present: decreased breath sounds, rales (faint), diminished air movement (RLL) - Routine Cardiovascular Exam Present: S1, S2, irregularly irregular - Routine Abdominal Exam Present: soft, non distended, non tender - Routine Extremities Exam Present: edema (1+ b/l) - Routine Musculoskeletal Exam Musculoskeletal: moving extremities well - Routine Skin Exam Present: intact, dry, warm - Routine Neurological Exam Present: alert, normal speech Results - Labs CBC & Chem 7: 01/24/17 00:56 01/24/17 00:59 - ABG Interpretation ABG results: 01/22/17 01/23/17 01/24/17 10:16 18:34 00:59 ABG pH 7.300 L 7.310 L ABG pCO2 63 H* 69 H* ABG pO2 49 L 80 ABG HCO3 31 H 35 H ABG Total CO2 32.9 H 36.8 H ABG O2 Saturation 80.0 L 95.0 ABG Base Excess 3.0 H 6.3 H VBG pH 7.380 VBG pCO2 54 H VBG pO2 73 H VBG HCO3 32 H VBG Total CO2 33.6 VBG O2 Saturation 94.0 VBG Base Excess 5.4 H Assessment and Plan (1) Neurocognitive disorder Current visit: Yes Status: Deleted (2) Hx of pleural effusion Current visit: Yes Status: Acute (3) Coronary artery disease Current visit: Yes Status: Acute (4) A-fib Current visit: Yes Status: Acute (5) Chronic anticoagulation Current visit: Yes Status: Acute (6) Diastolic heart failure Current visit: Yes Status: Acute (7) Anemia Current visit: Yes Status: Acute (8) Mitral regurgitation Current visit: Yes Status: Acute s/p Mitral Clip x2 in November by Dr. Loya (9) HTN (hypertension) Current visit: Yes Status: Acute (10) Respiratory failure Current visit: Yes Status: Acute Acute on chronic- Normal O2 at 2L at home Assessment and Plan: Acute on chronic resp failure -severe pulmonary edema is improving clinically and radiologically following diuresis with IV Bumex -continue with Lasix 60 mg in the am plus extra dose of 40 mg at 1400 -work on weaning oxygen - she's on 5L currently and I discussed with staff to wean this down to 2-3L if able -weight is trending down - cont to follow I&O -cancel CT chest -bicarb on BMP improving -cont steroid taper for suspected COPD exac. Hypernatremia -stable at 145 even with extra diuresis Psych -Mirtazapine added HS Discussed with Dr. Chavez, Dr. Husain, and nursing staff Sepsis Assessment - Evaluation Sepsis screening result: No Definite Risk - Focused Exam Vital Signs Temp Pulse Resp BP Pulse Ox 01/23/17 23:16 97.4 F 100 20 109/65 98 Respiratory exam: Present: CTA bilaterally Cardiovascular exam: Present: RRR, S1, S2 Capillary refill: > 3 Seconds Hospital Course Summary Disclaimer: The visit summary below is not to be considered part of the above Progress Note. Hospital Course: 01/16/17 09:56 Agree with admission to [facility] unit for further psychiatric evaluation and treatment. Continue on chronic oxygen at 4 liters by nasal cannula as well as CPAP at night. Continue with scheduled DuoNeb breathing treatments twice a day Chronic cardiac medications including Lasix 60 milligrams daily, Cardizem 180 milligrams daily Continue chronic anticoagulation, Eliquis 2.5 milligrams twice a day 01/19/17 09:51 CHF -CXR on 01/17 showed moderate CHF with pleural effusions. Crackles heard today on exam and 1-2+ BLE edema. Repeat CXR now. -may need to add an extra dose of Lasix - currently takes 60 mg daily. -weight is up about 0.5 kg. -continue oxygen and BiPAP HS Anemia, macrocytic -Hgb continues to trend down. -B12, ferritin, folate - normal; will check iron -check stool for occult blood Leukocytosis -resolved -repeat CBC in am Hypernatremia -mild, monitor closely especially since she's on Lasix -repeat BMP in am CKD -renal function improved with cr down to 1.1 A-fib -on Eliquis -rate fairly well controlled on diltiazem Behavioral disturbance -Psych notes reviewed. Seroquel increased. 01/21/17 16:33 CHF -Weight slowly increasing - 51.1 kg -Breathing at baseline -JASON watkins ordered -monitor fluid status closely Hypernatremia -increased to 147 -Lasix dose reduced Macrocytic anemia -iron level pending -stool for occult blood - neg -hgb increased to 8.8 Psych -HS seroquel increased 01/22/17 12:47 HF with acute hypoxic respiratory failure -hypoxic on 10L in the mid-80s. RT at bedside to place back on BiPAP. -ABG and stat CXR ordered. Check EKG and troponin. -Bumex 1 mg IV x1 now Pt improved on BiPAP - satting 100% Discussed with Dr. Chavez, who also evaluated the patient ABG showed resp acidosis - should improve with BiPAP CXR personally reviewed - severe pulm edema Labs reviewed - hypernatremia had improved 01/23/17 14:53 Pt. reports feeling a little better today. She is still very wheezy. Did not wear Bipap last night as she couldnt sleep. Weight is down about 1 lb since yesterday. Chart has been extensively reviewed. D/W Dr. Chavez as well. Will obtain CT of the chest to further evaluate effusions- may need repeat thoracentesis. Need to stop Diamox given her known resp. failure with acidosis. Increase Lasix to 60 mg AM, 40mg PM. Suspect a strong COPD component- given IM steroid now and then PO taper. May exacerbate irritability, but we need to get her breathing better. Repeat labs in AM. If no significant improvement, we may need to move to medical floor or transfer to [facility] for continuation of care and Pulm assistance. Continue Duoneb- increase to QID. Add pulmicort. DC Mucinex due to reported SE. Daughter states that she could take liquid guiafenesin if needed. Extensive time spent on this patient in the review of the records, viewing images, D/W staff and Dr. Chavez (> 45 minutes). 01/23/2017-I reviewed this chart, the patient history, and the BUSINESS MACHINE OPERATOR's/PA's documented findings as above. We discussed and formulated the assessment and plan as above with the additions below.-Dr. Chavez The patient has been needing between 3 and 6 L of oxygen today. Apparently she was on 3 L for only a short period of time. Currently she is on 5 L of oxygen. She denies feeling short of breath and she denies any pain. She refused her BiPAP last night. Her O2 sat is somewhat labile and I think this is secondary to sacral monitor not picking up well with her A. fib. Heart rate has been improved from yesterday and is in the 90s to low 100s. She is requesting to be up walking more frequently. She is eating well. She does agree to use her BiPAP tonight. On exam the patient has decreased breath sounds in the bases with minimal crackles in the mid lung tamayo. No wheezing on my exam. Cardiovascular reveals a borderline tachycardic rate with an irregular rhythm. Abdomen is soft and nontender. Extremities reveal trace pretibial edema. Weight is down about half a kilogram since yesterday but is up overall about 2.3 kg since admission. Repeat chest x-ray this evening shows pulmonary edema and right pleural effusion. Pulmonary edema is improved on my read compared to yesterday. ABG shows pH of 7.31/PCO2 69/by mouth 2 of 80 with O2 sat of 95% on 5 L. Oxygenation is improved markedly compared to yesterday. She does have some increase in CO2 today which I think should improve with using her BiPAP. Will give 1 dose of Bumex now. Lasix was increased today. I did call and talk with the patient's daughter this evening. I did update her on the patient's condition which is a little better compared to yesterday. She has had significant difficulties with pulmonary edema and pleural effusion off and on for the past several months. I discussed options with the patient's daughter regarding the patient's care. At this time she would like to keep her in the hospital here and continue with current treatment and reevaluate tomorrow. If not improving tomorrow could discuss with the patient's [employer] and consider transfer back to [facility] versus continue to manage medically here. If she should worsen she will likely need transfer. 01/24/17 08:48 Acute on chronic resp failure -severe pulmonary edema is improving clinically and radiologically following diuresis with IV Bumex -continue with Lasix 60 mg in the am plus extra dose of 40 mg at 1400 -work on weaning oxygen - she's on 5L currently and I discussed with staff to wean this down to 2-3L if able -weight is trending down - cont to follow I&O -cancel CT chest -bicarb on BMP improving -cont steroid taper for suspected COPD exac. Hypernatremia -stable at 145 even with extra diuresis Psych -Mirtazapine added HS <Tere Chavez - Last Filed: 01/24/17 13:33> Objective Vital signs: Temp Pulse Resp BP Pulse Ox 99 F 100 16 131/71 98 01/24/17 08:00 01/24/17 08:00 01/24/17 12:06 01/24/17 08:00 01/24/17 09:44 Results - Labs CBC & Chem 7: 01/24/17 00:56 01/24/17 00:59 - ABG Interpretation ABG results: 01/22/17 01/23/17 01/24/17 10:16 18:34 00:59 ABG pH 7.300 L 7.310 L ABG pCO2 63 H* 69 H* ABG pO2 49 L 80 ABG HCO3 31 H 35 H ABG Total CO2 32.9 H 36.8 H ABG O2 Saturation 80.0 L 95.0 ABG Base Excess 3.0 H 6.3 H VBG pH 7.380 VBG pCO2 54 H VBG pO2 73 H VBG HCO3 32 H VBG Total CO2 33.6 VBG O2 Saturation 94.0 VBG Base Excess 5.4 H Assessment and Plan (1) Neurocognitive disorder Current visit: Yes Status: Deleted (2) Hx of pleural effusion Current visit: Yes Status: Acute (3) Coronary artery disease Current visit: Yes Status: Acute (4) A-fib Current visit: Yes Status: Acute (5) Chronic anticoagulation Current visit: Yes Status: Acute (6) Diastolic heart failure Current visit: Yes Status: Acute (7) Anemia Current visit: Yes Status: Acute (8) Mitral regurgitation Current visit: Yes Status: Acute (9) HTN (hypertension) Current visit: Yes Status: Acute (10) Respiratory failure Current visit: Yes Status: Acute Assessment and Plan: 01/24/2017-I reviewed this chart, the patient history, and the BUSINESS MACHINE OPERATOR's/PA's documented findings as above. We discussed and formulated the assessment and plan as above with the additions below.-Dr. Chavez I saw the patient this afternoon at her table after she finished lunch. She states she is eating very well. She states she feels well and denies any shortness of breath. She denies any chest pain or any pain elsewhere. She denies any complaints. She is telling a story to a nurse and a fellow patient and does not appear to have dyspnea. Legs are free of edema On exam she is alert and in no acute distress. Neck is supple. Chest reveals decreased breath sounds in the bases without wheezes. Cardiovascular reveals a borderline tachycardic rate with irregular rhythm. The patient is currently on 3 L of oxygen and oxygen saturation is in the mid 90s. Heart rate ranges from 90 -120. She is talking fairly nonstop, and appears in no distress. We'll continue with extra dose of Lasix today and then reassess tomorrow. Continue to recommend BiPAP at night. Continue breathing treatments. Will decrease prednisone to 20 mg a day. Pulmonary edema is improving over the past 2 days. Discussed with the patient's nurse. Sepsis Assessment - Focused Exam Vital Signs Temp Pulse Resp BP Pulse Ox 01/24/17 12:06 16 01/24/17 09:44 12 98 01/24/17 08:00 99 F 100 24 131/71 93 Hospital Course Summary Disclaimer: The visit summary below is not to be considered part of the above Progress Note.
[2017-01-24] MEDS: FERROUS SULFATE 324 MG TABLET PO SCH ×2 (08:45→17:32)
[2017-01-24] MEDS: OMEPRAZOLE 20 MG CAPSULE PO SCH (08:45)
[2017-01-24] MEDS: APIXABAN 5 MG TABLET PO SCH ×2 (08:46→20:30)
[2017-01-24] MEDS: ASPIRIN *EC* 81 MG TABLET PO SCH (08:46)
[2017-01-24] MEDS: DOCUSATE SODIUM 100 MG CAPSULE PO SCH ×2 (08:46→20:30)
[2017-01-24] MEDS: BENZONATATE 100 MG CAPSULE PO SCH ×2 (08:48→20:30)
[2017-01-24] MEDS: POLYETHYL GLYCOL 3350 17gm PACKET PO SCH (08:48)
[2017-01-24] MEDS: FUROSEMIDE 40 MG TABLET PO SCH ×2 (08:54→13:15)
[2017-01-24] MEDS: SALINE FLUSH 10ml SYRINGE IVF PRN (13:16)
[2017-01-24] MEDS: MELATONIN 1 MG TABLET PO SCH (20:30)
[2017-01-24] MEDS: OLANZapine 5 MG TABLET PO SCH (20:30)
[2017-01-24] MEDS: MIRTAZAPINE 15 MG TABLET PO SCH (20:30)
[2017-01-25] MEDS: OMEPRAZOLE 20 MG CAPSULE PO SCH (06:10)
--- NOTE | 2017-01-25 07:01 | XRay Report ---
Indication: hypoxia PROCEDURE: XR chest 1V: Encounter: Initial Comparison: January 22, 2017 Findings: Pulmonary edema has improved with decreasing pulmonary vascular congestion. Moderate right and small left pleural effusions remain with lower lobe consolidation. No pneumothorax. Cardiac silhouette is stable. Mediastinal contours are unchanged. Impression: Improving pulmonary edema with a mild to moderate amount remaining. .
[2017-01-25] MEDS: APIXABAN 5 MG TABLET PO SCH ×2 (08:24→20:30)
[2017-01-25] MEDS: ASPIRIN *EC* 81 MG TABLET PO SCH (08:25)
[2017-01-25] MEDS: BENZONATATE 100 MG CAPSULE PO SCH ×2 (08:25→20:30)
[2017-01-25] MEDS: DOCUSATE SODIUM 100 MG CAPSULE PO SCH ×2 (08:26→20:30)
[2017-01-25] MEDS: FERROUS SULFATE 324 MG TABLET PO SCH (08:26)
[2017-01-25] MEDS: FUROSEMIDE 40 MG TABLET PO SCH (08:26)
[2017-01-25] MEDS: POLYETHYL GLYCOL 3350 17gm PACKET PO SCH (08:27)
[2017-01-25] MEDS: IPRATROPIUM/ALBUTEROL 2.5mg-0.5mg/3ml NEB IH SCH ×4 (08:30→18:45)
[2017-01-25] MEDS: BUDESONIDE INH.SOLN 0.5mg/2ml NEB AEROSOL SCH (08:30)
[2017-01-25] MEDS: PredniSONE 20 MG TABLET PO SCH (08:30)
--- NOTE | 2017-01-25 09:41 | XRay Report ---
Indication: hypoxia Procedure: XR chest 1V: Encounter: Subsequent Comparison: 01/23/2017, 01/22/2017, 01/19/2017, 01/17/2017 Technique: A single portable AP chest radiograph was obtained. Findings: Lungs and airways: Persistent low lung volumes. Right greater than left basilar atelectasis. Stable pulmonary vasculature. Pleura: Persistent moderate right and small left pleural effusions. No pneumothorax. Heart and mediastinum: The cardiomediastinal silhouette and great vessels appear unchanged with redemonstration of cardiomegaly, accentuated by AP technique and low lung volumes. Osseous structures and soft tissues: No acute osseous abnormality is seen. Degenerative changes of the shoulders and spine. Impression: Persistent low lung volumes, moderate right and small left pleural effusions with associated basilar atelectasis. .
--- NOTE | 2017-01-25 09:44 | Progress Note ---
<RosalbaReanna Mary - Last Filed: 01/25/17 09:38> Subjective: Pam was seen at the breakfast table. She talked quickly and had no conversational dyspnea. She denied feeling short of breath. She complains that she hasn't been able to sleep well (in fact, this has been a problem since leaving home). She denies any cough or chest pain. She denies abd pain or GI complaints. Nursing staff deny any urgent concerns, but state that she can be demanding and slightly uncooperative at times. Objective Vital signs: Temp Pulse Resp BP Pulse Ox 98.8 F 116 H 18 134/88 96 01/25/17 08:41 01/25/17 08:41 01/25/17 08:41 01/25/17 08:41 01/25/17 08:41 Weight: 51.2 kg - Constitutional Present: mild distress, thin, cooperative (Irritable) - Routine HEENT Exam ENT: Present: oropharynx clear - Routine Respiratory Exam Present: diminished air movement - Routine Cardiovascular Exam Present: irregularly irregular - Routine Abdominal Exam Present: soft, non tender - Routine Extremities Exam Present: edema (1-2+ b/l), normal capillary refill - Routine Musculoskeletal Exam Musculoskeletal: normal gait - Routine Skin Exam Present: intact, dry, warm - Routine Neurological Exam Present: alert, oriented X3 - Routine Psychiatric Exam Present: normal affect Results - Labs CBC & Chem 7: 01/24/17 00:56 01/25/17 05:56 - ABG Interpretation ABG results: 01/22/17 01/23/17 01/24/17 10:16 18:34 00:59 ABG pH 7.300 L 7.310 L ABG pCO2 63 H* 69 H* ABG pO2 49 L 80 ABG HCO3 31 H 35 H ABG Total CO2 32.9 H 36.8 H ABG O2 Saturation 80.0 L 95.0 ABG Base Excess 3.0 H 6.3 H VBG pH 7.380 VBG pCO2 54 H VBG pO2 73 H VBG HCO3 32 H VBG Total CO2 33.6 VBG O2 Saturation 94.0 VBG Base Excess 5.4 H Assessment and Plan (1) Respiratory failure Current visit: Yes Status: Acute Acute on chronic- Normal O2 at 2L at home (2) Hx of pleural effusion Current visit: Yes Status: Acute (3) Coronary artery disease Current visit: Yes Status: Acute (4) A-fib Current visit: Yes Status: Acute (5) Chronic anticoagulation Current visit: Yes Status: Acute (6) Diastolic heart failure Current visit: Yes Status: Acute (7) Anemia Current visit: Yes Status: Acute (8) Mitral regurgitation Current visit: Yes Status: Acute s/p Mitral Clip x2 in November by Dr. Loya (9) HTN (hypertension) Current visit: Yes Status: Acute Assessment and Plan: Pulmonary edema -clinically improving -CXR this morning - continues to show B/L effusions (R>L) but edema appears improved on personal review -Lasix resumed at baseline dose of 60 mg daily -continue home O2, nocturnal BiPAP (as pt tolerates) and daily weights -hypernatremia is mild at 145 -other electrolytes have remained stable through extra diuresis Psychiatric -Dr. Husain's noted reviewed: HS doses of Mirtazipine and Zyprexa doses increased Discussed with Dr. Chavez Sepsis Assessment - Evaluation Sepsis screening result: No Definite Risk - Focused Exam Vital Signs Temp Pulse Resp BP Pulse Ox 01/25/17 08:41 98.8 F 116 H 18 134/88 96 01/25/17 02:06 113 H 22 94 01/24/17 23:01 99.7 F 138 H 18 149/85 H 93 Respiratory exam: Present: CTA bilaterally Cardiovascular exam: Present: RRR, S1, S2 Capillary refill: > 3 Seconds Hospital Course Summary Disclaimer: The visit summary below is not to be considered part of the above Progress Note. Hospital Course: 01/16/17 09:56 Agree with admission to [facility] unit for further psychiatric evaluation and treatment. Continue on chronic oxygen at 4 liters by nasal cannula as well as CPAP at night. Continue with scheduled DuoNeb breathing treatments twice a day Chronic cardiac medications including Lasix 60 milligrams daily, Cardizem 180 milligrams daily Continue chronic anticoagulation, Eliquis 2.5 milligrams twice a day 01/19/17 09:51 CHF -CXR on 01/17 showed moderate CHF with pleural effusions. Crackles heard today on exam and 1-2+ BLE edema. Repeat CXR now. -may need to add an extra dose of Lasix - currently takes 60 mg daily. -weight is up about 0.5 kg. -continue oxygen and BiPAP HS Anemia, macrocytic -Hgb continues to trend down. -B12, ferritin, folate - normal; will check iron -check stool for occult blood Leukocytosis -resolved -repeat CBC in am Hypernatremia -mild, monitor closely especially since she's on Lasix -repeat BMP in am CKD -renal function improved with cr down to 1.1 A-fib -on Eliquis -rate fairly well controlled on diltiazem Behavioral disturbance -Psych notes reviewed. Seroquel increased. 01/21/17 16:33 CHF -Weight slowly increasing - 51.1 kg -Breathing at baseline -JASON hose ordered -monitor fluid status closely Hypernatremia -increased to 147 -Lasix dose reduced Macrocytic anemia -iron level pending -stool for occult blood - neg -hgb increased to 8.8 Psych -HS seroquel increased 01/22/17 12:47 HF with acute hypoxic respiratory failure -hypoxic on 10L in the mid-80s. RT at bedside to place back on BiPAP. -ABG and stat CXR ordered. Check EKG and troponin. -Bumex 1 mg IV x1 now Pt improved on BiPAP - satting 100% Discussed with Dr. Chavez, who also evaluated the patient ABG showed resp acidosis - should improve with BiPAP CXR personally reviewed - severe pulm edema Labs reviewed - hypernatremia had improved 01/23/17 14:53 Pt. reports feeling a little better today. She is still very wheezy. Did not wear Bipap last night as she couldnt sleep. Weight is down about 1 lb since yesterday. Chart has been extensively reviewed. D/W Dr. Chavez as well. Will obtain CT of the chest to further evaluate effusions- may need repeat thoracentesis. Need to stop Diamox given her known resp. failure with acidosis. Increase Lasix to 60 mg AM, 40mg PM. Suspect a strong COPD component- given IM steroid now and then PO taper. May exacerbate irritability, but we need to get her breathing better. Repeat labs in AM. If no significant improvement, we may need to move to medical floor or transfer to [place] for continuation of care and Pulm assistance. Continue Duoneb- increase to QID. Add pulmicort. DC Mucinex due to reported SE. Daughter states that she could take liquid guiafenesin if needed. Extensive time spent on this patient in the review of the records, viewing images, D/W staff and Dr. Chavez (> 45 minutes). 01/23/2017-I reviewed this chart, the patient history, and the MICROFILM EQUIPMENT INSPECTOR's/PA's documented findings as above. We discussed and formulated the assessment and plan as above with the additions below.-Dr. Chavez The patient has been needing between 3 and 6 L of oxygen today. Apparently she was on 3 L for only a short period of time. Currently she is on 5 L of oxygen. She denies feeling short of breath and she denies any pain. She refused her BiPAP last night. Her O2 sat is somewhat labile and I think this is secondary to sacral monitor not picking up well with her A. fib. Heart rate has been improved from yesterday and is in the 90s to low 100s. She is requesting to be up walking more frequently. She is eating well. She does agree to use her BiPAP tonight. On exam the patient has decreased breath sounds in the bases with minimal crackles in the mid lung tamayo. No wheezing on my exam. Cardiovascular reveals a borderline tachycardic rate with an irregular rhythm. Abdomen is soft and nontender. Extremities reveal trace pretibial edema. Weight is down about half a kilogram since yesterday but is up overall about 2.3 kg since admission. Repeat chest x-ray this evening shows pulmonary edema and right pleural effusion. Pulmonary edema is improved on my read compared to yesterday. ABG shows pH of 7.31/PCO2 69/by mouth 2 of 80 with O2 sat of 95% on 5 L. Oxygenation is improved markedly compared to yesterday. She does have some increase in CO2 today which I think should improve with using her BiPAP. Will give 1 dose of Bumex now. Lasix was increased today. I did call and talk with the patient's daughter this evening. I did update her on the patient's condition which is a little better compared to yesterday. She has had significant difficulties with pulmonary edema and pleural effusion off and on for the past several months. I discussed options with the patient's daughter regarding the patient's care. At this time she would like to keep her in the hospital here and continue with current treatment and reevaluate tomorrow. If not improving tomorrow could discuss with the patient's body mechanic apprentice and consider transfer back to [place] versus continue to manage medically here. If she should worsen she will likely need transfer. 01/24/17 08:48 Acute on chronic resp failure -severe pulmonary edema is improving clinically and radiologically following diuresis with IV Bumex -continue with Lasix 60 mg in the am plus extra dose of 40 mg at 1400 -work on weaning oxygen - she's on 5L currently and I discussed with staff to wean this down to 2-3L if able -weight is trending down - cont to follow I&O -cancel CT chest -bicarb on BMP improving -cont steroid taper for suspected COPD exac. Hypernatremia -stable at 145 even with extra diuresis Psych -Mirtazapine added HS 01/25/17 09:50 Pulmonary edema -clinically improving -CXR this morning - continues to show B/L effusions (R>L) but edema appears improved on personal review -Lasix resumed at baseline dose of 60 mg daily -continue home O2, nocturnal BiPAP (as pt tolerates) and daily weights -hypernatremia is mild at 145 -other electrolytes have remained stable through extra diuresis Psychiatric -Dr. Husain's noted reviewed: HS doses of Mirtazipine and Zyprexa doses increased <Tere Chavez L - Last Filed: 01/25/17 17:00> Objective Vital signs: Temp Pulse Resp BP Pulse Ox 98.8 F 116 H 18 134/88 92 01/25/17 08:41 01/25/17 08:41 01/25/17 15:00 01/25/17 08:41 01/25/17 15:00 Results - Labs CBC & Chem 7: 01/24/17 00:56 01/25/17 05:56 - ABG Interpretation ABG results: 01/22/17 01/23/17 01/24/17 10:16 18:34 00:59 ABG pH 7.300 L 7.310 L ABG pCO2 63 H* 69 H* ABG pO2 49 L 80 ABG HCO3 31 H 35 H ABG Total CO2 32.9 H 36.8 H ABG O2 Saturation 80.0 L 95.0 ABG Base Excess 3.0 H 6.3 H VBG pH 7.380 VBG pCO2 54 H VBG pO2 73 H VBG HCO3 32 H VBG Total CO2 33.6 VBG O2 Saturation 94.0 VBG Base Excess 5.4 H Assessment and Plan (1) Hx of pleural effusion Current visit: Yes Status: Acute (2) Coronary artery disease Current visit: Yes Status: Acute (3) A-fib Current visit: Yes Status: Acute (4) Chronic anticoagulation Current visit: Yes Status: Acute (5) Diastolic heart failure Current visit: Yes Status: Acute (6) Anemia Current visit: Yes Status: Acute (7) Mitral regurgitation Current visit: Yes Status: Acute (8) HTN (hypertension) Current visit: Yes Status: Acute (9) Respiratory failure Current visit: Yes Status: Acute Assessment and Plan: 01/25/2017-I reviewed this chart, the patient history, and the MICROFILM EQUIPMENT INSPECTOR's/PA's documented findings as above. We discussed and formulated the assessment and plan as above with the additions below.-Dr. Chavez The patient was seen earlier today by my nurse practitioner as noted above. At that time she seemed to be doing okay. This afternoon, I spoke with the respiratory therapist who states that at one point today she was on 3-1/2 L and O2 sat was 99%. Chest x-ray today read by radiology showed a moderate right pleural effusion and a small left pleural effusion with atelectasis. I have reviewed her x-ray and I do agree her pulmonary edema appears better. When I came to see the patient this afternoon, she was lying in bed and mumbling stating she just wanted to sleep. She has been refusing BiPAP for the last several days and at most will only tolerated about 10 minutes. She is currently on 5 L of oxygen with O2 sat of 91% and heart rate ranging from 100 to 115. Lungs reveal decreased breath sounds in the bases, no wheezes or rhonchi. Cardiovascular reveals an irregularly irregular rhythm with borderline tachycardic rate. Abdomen is soft. Extremities reveal +1 edema. At this point, pulmonary edema appears to be better and she has improved from Wednesday when she was in [place] pulmonary edema. Unfortunately, with continued diuresis she has not improved much over the weekend and today. Prior to admission she was on 2 L of oxygen and has been needing 5 L or more the majority of the time this weekend and today. She is not tolerating BiPAP, which makes treatment of her COPD more difficult because of her CO2 retention. I talked with ULYSSES Lindsey for generations. I discussed with him that the patient 's pulmonary and cardiac status is worse than her baseline and her improvement has plateaued. I discussed with him options including transferring to inpatient care in [place] for more aggressive care of her cardiopulmonary issues with her body mechanic apprentice and route delivery driver, versus if the family does not want to be aggressive we can continue current nonaggressive cardiopulmonary care in [facility] while we try to improve her psychiatric issues, versus consideration for hospice. César has discussed these issues with Dr. Husain and they plan to discuss options with the family. Sepsis Assessment - Focused Exam Vital Signs Temp Pulse Resp BP Pulse Ox 01/25/17 15:00 18 92 01/25/17 10:59 18 96 01/25/17 08:41 98.8 F 116 H 18 134/88 96 01/25/17 08:30 18 99 Hospital Course Summary Disclaimer: The visit summary below is not to be considered part of the above Progress Note.
[2017-01-25] MEDS: MIRTAZAPINE 15 MG TABLET PO SCH (20:30)
[2017-01-25] MEDS: MELATONIN 1 MG TABLET PO SCH (20:30)
[2017-01-25] MEDS: OLANZapine 5 MG TABLET PO SCH (20:30)
--- NOTE | 2017-01-25 22:37 | Neuropsych Progress Note ---
[place]uel[place] Subjective Date: 01/25/17 - Sujective/Severity of Illness Medications: Acetaminophen (Tylenol) 650 mg PO Q4H PRN PRN Reason: Pain Albuterol/Ipratropium (Duoneb) 3 ml IH BID [facility] Last Admin: 01/23/17 10:00 Dose: 3 ml Albuterol/Ipratropium (Duoneb) 3 ml IH Q2H PRN PRN Reason: Shortness of air Last Admin: 01/16/17 15:14 Dose: 3 ml Albuterol/Ipratropium (Duoneb) 3 ml IH RTQID [facility] Last Admin: 01/25/17 18:45 Dose: 3 ml Apixaban (Eliquis) 2.5 mg PO BID [facility] Last Admin: 01/25/17 08:24 Dose: 2.5 mg Aspirin (Ecotrin) 81 mg PO DAILY [facility] Last Admin: 01/25/17 08:25 Dose: 81 mg Benzonatate (Tessalon Perles) 100 mg PO BID [facility] Last Admin: 01/25/17 08:25 Dose: 100 mg Bisacodyl (Dulcolax) 10 mg RECTALLY DAILY PRN PRN Reason: Constipation Budesonide (Pulmicort Inhalation) 0.5 mg AEROSOL RTBID [facility] Last Admin: 01/25/17 08:30 Dose: 0.5 mg Cholecalciferol (Vitamin D-3) 1,000 unit PO DAILY [facility] Last Admin: 01/25/17 08:26 Dose: 1,000 unit Diltiazem HCl (Cardizem Cd) 180 mg PO DAILY [facility] Last Admin: 01/25/17 08:26 Dose: 180 mg Docusate Sodium (Colace) 100 mg PO BID [facility] Last Admin: 01/25/17 08:26 Dose: 100 mg Ferrous Sulfate (Feosol) 324 mg PO BIDWM [facility] Last Admin: 01/25/17 08:26 Dose: 324 mg Furosemide (Lasix) 60 mg PO DAILY [facility] Last Admin: 01/25/17 08:26 Dose: 60 mg Furosemide (Lasix) 40 mg PO 1400 [facility] Last Admin: 01/24/17 13:15 Dose: 40 mg Haloperidol (Haldol) 0.5 mg PO Q6H PRN PRN Reason: Extreme agitation Haloperidol Lactate (Haldol) 0.5 mg IM Q6H PRN PRN Reason: Extreme agitation Lorazepam (Ativan) 0.5 mg PO Q6H PRN PRN Reason: Extreme agitation Last Admin: 01/23/17 20:35 Dose: 0.5 mg Lorazepam (Ativan Inj) 0.5 mg IM Q6H PRN PRN Reason: Extreme agitation Lorazepam (Ativan Intensol) 0.5 mg SL Q6H PRN Last Admin: 01/22/17 00:10 Dose: 0.5 mg Magnesium Hydroxide (Mom) 30 ml PO PRN PRN PRN Reason: Constipation Melatonin (Melatonin) 3 mg PO 2100 JIM Last Admin: 01/24/17 20:30 Dose: 3 mg Mirtazapine (Remeron) 15 mg PO HS JIM Last Admin: 01/24/17 20:30 Dose: 15 mg Olanzapine (Zyprexa) 7.5 mg PO HS JIM Last Admin: 01/24/17 20:30 Dose: 7.5 mg Omeprazole (Prilosec) 20 mg PO ACB [facility] Last Admin: 01/25/17 06:10 Dose: 20 mg Polyethylene Glycol (Miralax) 17 gm PO DAILY JIM Last Admin: 01/25/17 08:27 Dose: 17 gm Potassium Chloride (K-Dur) 20 meq PO BIDWM JIM Last Admin: 01/25/17 08:25 Dose: 20 meq Prednisone (Deltasone) 20 mg PO WB JIM Last Admin: 01/25/17 08:30 Dose: 20 mg Sodium Chloride (Iv Flush) 10 - 80 ml IVF PRN PRN PRN Reason: Flushing Last Admin: 01/24/17 13:16 Dose: 10 ml Trolamine Salicylate (Aspercreme) 1 applic TOP Q8H PRN PRN Reason: Pain Subjective: Pt. seen, chart reviewed. Case discussed w RN, multidisc team, and Dr. Chavez. RN reports she has continued to refuse her BiPAP and has periods of desaturation. They have done fair in keeping her O2 up with [place] oxygen but not ideal. She only slept a few hours last night but is sleepy during the day today some. They report she is up and down some through the night. She was pleasant and cooperative with me during my visit this evening. She was tracking my conversation fairly well and expressed to me she'd rather not be aggressive in terms of cardiac care when I discussed w her than we could transfer her to another unit where she may get more cardiac focus. She reports "I don't want to be aggressive, but it's not like I want to either." She reports to me her mood is "very good, but she acknowledges she is groggy." She' s been compliant w meds and "cooperative for the most part" per RN today, but refuses the BiPAP frequently. Team to visit w family regarding their wishes as well. Start Time: 18:30 Stop Time: 19:00 Mental Status Exam Vitals: Last Vital Signs Temp 99.1 F 01/25/17 22:23 Pulse 106 H 01/25/17 22:23 Resp 18 01/25/17 22:23 BP 147/80 H 01/25/17 22:23 Pulse Ox 94 01/25/17 22:23 Height: 4 ft 10 in Weight: 51.2 kg - Mental Status Exam Muscle Strength/Tone: Normal Dressing: Casual Grooming: Fair Attitude: Cooperative Motor Activity: Retardation Eye Contact: Fair Speech: Slowed Volume: Soft Rhythm: Appropriate Rhythm Orientation: Oriented X4 Mood: Neutral, Irritable (at times) Rate of Thoughts: Delayed Thought Organization: Organized Associations: Illogical Abstract Reasoning: Poor abstract reasoning Thought Content: Delusions Perception/Psychotic: Hx psychosis, not current Current Hallucinations: Visual (per staff) Language: Naming Intact Fund of Knowledge: Poor fund of knowledge Memory: Poor-immediate, Poor-recent Suicidal Ideation: Denies Homicidal Ideation: Denies Insight: Limited Judgement: Limited Impulse Control: Poor - Laboratory Result Diagrams: 01/24/17 00:56 01/25/17 05:56 Laboratory Results - last 24 hr 01/25/17 05:56 Turbidity < 20.0 Sodium 145 H Potassium 4.3 Chloride 104 Carbon Dioxide 30 Anion Gap 11 BUN 35.0 H Creatinine 1.1 D GFR Calculation 47 BUN/Creatinine Ratio 32 H Glucose 100 Calculated Osmolality 287 H Calcium 8.2 L Icterus Index < 2.0 Specimen Hemolysis < 15.0 Assessment and Plan (1) Dementia with behavioral disturbance Qualifiers: Dementia type: unspecified type Qualified Code(s): F03.91 - Unspecified dementia with behavioral disturbance Current visit: Yes Status: Acute (2) Major neurocognitive disorder Problem details: With behavioral disturbance Current visit: Yes Status: Acute 6.12.17: Discussed w RN, team, multidis, and Dr. Chavez. Pt expressed to me she would rather not be aggressive in terms of more medical treatment. Asked team to involve family in decision with her as well. I will hold off on further psych med increases at this point for fear of worstening cardiopulmonary functioning.
[2017-01-25] MEDS: LORazepam INTENSOL 1mg/0.5ml ORAL LIQUID SL PRN (23:37)
[2017-01-26] MEDS: OMEPRAZOLE 20 MG CAPSULE PO SCH (05:48)
[2017-01-26] MEDS: IPRATROPIUM/ALBUTEROL 2.5mg-0.5mg/3ml NEB IH SCH ×5 (08:00→19:05)
[2017-01-26] MEDS: BUDESONIDE INH.SOLN 0.5mg/2ml NEB AEROSOL SCH ×2 (08:00→19:05)
[2017-01-26] MEDS: FUROSEMIDE 40 MG TABLET PO SCH (09:24)
[2017-01-26] MEDS: APIXABAN 5 MG TABLET PO SCH ×2 (09:24→21:27)
[2017-01-26] MEDS: BENZONATATE 100 MG CAPSULE PO SCH ×2 (09:25→21:28)
[2017-01-26] MEDS: DOCUSATE SODIUM 100 MG CAPSULE PO SCH ×2 (09:25→21:27)
[2017-01-26] MEDS: ASPIRIN *EC* 81 MG TABLET PO SCH (09:25)
[2017-01-26] MEDS: FERROUS SULFATE 324 MG TABLET PO SCH ×3 (09:26→18:31)
[2017-01-26] MEDS: PredniSONE 20 MG TABLET PO SCH (09:26)
[2017-01-26] MEDS: POLYETHYL GLYCOL 3350 17gm PACKET PO SCH (09:27)
[2017-01-26] MEDS ORDERED: DiltiaZEM IR 30 MG TABLET PO ONE (17:57)
--- NOTE | 2017-01-26 18:03 | Progress Note ---
Subjective: The patient was seen at the day room after finishing supper. She states she is feeling well. She denies any chest pain or shortness of breath. Her appetite is good. She is urinating without difficulties. Per nursing report, the patient did wear her BiPAP for about 4 hours last night. She apparently became agitated this afternoon but on my visit she is pleasant and agreeable and in no acute distress. She is confused however. Objective Vital signs: Temp Pulse Resp BP Pulse Ox 98.4 F 131 H 18 137/90 H 96 01/26/17 09:22 01/26/17 09:22 01/26/17 15:50 01/26/17 09:22 01/26/17 09:22 Weight: 51.2 kg Comments: Currently she is sitting up in a chair on 4 L of oxygen after eating supper. O2 sat is 89%. Heart rate ranges from 100 up to 1:30. Blood pressure is 128/69. GEN-alert, no acute distress HEENT-sclera anicteric, oropharynx is moist NECK-positive JVD CV-irregularly irregular with borderline tachycardic rate CHEST-decreased breath sounds in the bases, no wheezes or rhonchi ABD-soft, nontender with positive bowel sounds -no Soni EXT-1-2+ lower extremity edema NEURO-she is confused and stated she did not wear her oxygen all night. No focal deficits SKIN-warm and dry without rashes - Constitutional Present: mild distress, thin, cooperative (Irritable) Results - Labs CBC & Chem 7: 01/24/17 00:56 01/25/17 05:56 - ABG Interpretation ABG results: 01/22/17 01/23/17 01/24/17 10:16 18:34 00:59 ABG pH 7.300 L 7.310 L ABG pCO2 63 H* 69 H* ABG pO2 49 L 80 ABG HCO3 31 H 35 H ABG Total CO2 32.9 H 36.8 H ABG O2 Saturation 80.0 L 95.0 ABG Base Excess 3.0 H 6.3 H VBG pH 7.380 VBG pCO2 54 H VBG pO2 73 H VBG HCO3 32 H VBG Total CO2 33.6 VBG O2 Saturation 94.0 VBG Base Excess 5.4 H Assessment and Plan (1) Hx of pleural effusion Current visit: Yes Status: Acute (2) Coronary artery disease Current visit: Yes Status: Acute (3) A-fib Current visit: Yes Status: Acute (4) Chronic anticoagulation Current visit: Yes Status: Acute (5) Diastolic heart failure Current visit: Yes Status: Acute (6) Anemia Current visit: Yes Status: Acute (7) Mitral regurgitation Current visit: Yes Status: Acute s/p Mitral Clip x2 in November by Dr. Loya (8) HTN (hypertension) Current visit: Yes Status: Acute (9) Respiratory failure Current visit: Yes Status: Acute Acute on chronic- Normal O2 at 2L at home Assessment and Plan: 01/26/2017-Dr. Chavez Impression Acute on chronic hypoxic respiratory failure Congestive diastolic heart failure pulmonary edema-improved Bilateral pleural effusions COPD Coronary artery disease A. fib with RVR Anemia Mitral regurg with mitral clip 2 Hypert[address] D[address] with [address] Husain yesterday and he and César, clinical socially responsible investment adviser, had spoken with family and they wanted to have a family meeting today and decide on level of care. Today, they have decided to wait and have the meeting tomorrow. Family is aware that continuous monitoring of blood pressure, heart rate and oxygenation is very difficult in the generations unit and at this time they went the patient to continue to stay in generations. At this time, the patient appears to be doing about the same as yesterday. She appears in no distress. On exam she is tachycardic with borderline low oxygenation on 4 L. She does have JVD. We'll give an extra dose of Cardizem 30 mg by mouth now immediate release. Will give Bumex 1 mg IV 1. We'll repeat a BMP now. Repeat BMP tomorrow. May need to increase Cardizem CD tomorrow versus consider adding beta sarah. Sepsis Assessment - Evaluation Sepsis screening result: No Definite Risk - Focused Exam Vital Signs Temp Pulse Resp BP Pulse Ox 01/26/17 15:50 18 01/26/17 12:35 16 01/26/17 09:22 98.4 F 131 H 18 137/90 H 96 01/26/17 08:00 24 Respiratory exam: Present: CTA bilaterally Cardiovascular exam: Present: RRR, S1, S2 Capillary refill: > 3 Seconds Hospital Course Summary Disclaimer: The visit summary below is not to be considered part of the above Progress Note. Hospital Course: 01/16/17 09:56 Agree with admission to generations unit for further psychiatric evaluation and treatment. Continue on chronic oxygen at 4 liters by nasal cannula as well as CPAP at night. Continue with scheduled DuoNeb breathing treatments twice a day Chronic cardiac medications including Lasix 60 milligrams daily, Cardizem 180 milligrams daily Continue chronic anticoagulation, Eliquis 2.5 milligrams twice a day 01/19/17 09:51 CHF -CXR on 01/17 showed moderate CHF with pleural effusions. Crackles heard today on exam and 1-2+ BLE edema. Repeat CXR now. -may need to add an extra dose of Lasix - currently takes 60 mg daily. -weight is up about 0.5 kg. -continue oxygen and BiPAP HS Anemia, macrocytic -Hgb continues to trend down. -B12, ferritin, folate - normal; will check iron -check stool for occult blood Leukocytosis -resolved -repeat CBC in am Hypernatremia -mild, monitor closely especially since she's on Lasix -repeat BMP in am CKD -renal function improved with cr down to 1.1 A-fib -on Eliquis -rate fairly well controlled on diltiazem Behavioral disturbance -Psych notes reviewed. Seroquel increased. 01/21/17 16:33 CHF -Weight slowly increasing - 51.1 kg -Breathing at baseline -JASON watkins ordered -monitor fluid status closely Hypernatremia -increased to 147 -Lasix dose reduced Macrocytic anemia -iron level pending -stool for occult blood - neg -hgb increased to 8.8 Psych -HS seroquel increased 01/22/17 12:47 HF with acute hypoxic respiratory failure -hypoxic on 10L in the mid-80s. RT at bedside to place back on BiPAP. -ABG and stat CXR ordered. Check EKG and troponin. -Bumex 1 mg IV x1 now Pt improved on BiPAP - satting 100% Discussed with Dr. Chavez, who also evaluated the patient ABG showed resp acidosis - should improve with BiPAP CXR personally reviewed - severe pulm edema Labs reviewed - hypernatremia had improved 01/23/17 14:53 Pt. reports feeling a little better today. She is still very wheezy. Did not wear Bipap last night as she couldnt sleep. Weight is down about 1 lb since yesterday. Chart has been extensively reviewed. D/W Dr. Chavez as well. Will obtain CT of the chest to further evaluate effusions- may need repeat thoracentesis. Need to stop Diamox given her known resp. failure with acidosis. Increase Lasix to 60 mg AM, 40mg PM. Suspect a strong COPD component- given IM steroid now and then PO taper. May exacerbate irritability, but we need to get her breathing better. Repeat labs in AM. If no significant improvement, we may need to move to medical floor or transfer to [place] for continuation of care and Pulm assistance. Continue Duoneb- increase to QID. Add pulmicort. DC Mucinex due to reported SE. Daughter states that she could take liquid guiafenesin if needed. Extensive time spent on this patient in the review of the records, viewing images, D/W staff and Dr. Chavez (> 45 minutes). 01/23/2017-I reviewed this chart, the patient history, and the SPUD GRADER's/PA's documented findings as above. We discussed and formulated the assessment and plan as above with the additions below.-Dr. Chavez The patient has been needing between 3 and 6 L of oxygen today. Apparently she was on 3 L for only a short period of time. Currently she is on 5 L of oxygen. She denies feeling short of breath and she denies any pain. She refused her BiPAP last night. Her O2 sat is somewhat labile and I think this is secondary to sacral monitor not picking up well with her A. fib. Heart rate has been improved from yesterday and is in the 90s to low 100s. She is requesting to be up walking more frequently. She is eating well. She does agree to use her BiPAP tonight. On exam the patient has decreased breath sounds in the bases with minimal crackles in the mid lung tamayo. No wheezing on my exam. Cardiovascular reveals a borderline tachycardic rate with an irregular rhythm. Abdomen is soft and nontender. Extremities reveal trace pretibial edema. Weight is down about half a kilogram since yesterday but is up overall about 2.3 kg since admission. Repeat chest x-ray this evening shows pulmonary edema and right pleural effusion. Pulmonary edema is improved on my read compared to yesterday. ABG shows pH of 7.31/PCO2 69/by mouth 2 of 80 with O2 sat of 95% on 5 L. Oxygenation is improved markedly compared to yesterday. She does have some increase in CO2 today which I think should improve with using her BiPAP. Will give 1 dose of Bumex now. Lasix was increased today. I did call and talk with the patient's daughter this evening. I did update her on the patient's condition which is a little better compared to yesterday. She has had significant difficulties with pulmonary edema and pleural effusion off and on for the past several months. I discussed options with the patient's daughter regarding the patient's care. At this time she would like to keep her in the hospital here and continue with current treatment and reevaluate tomorrow. If not improving tomorrow could discuss with the patient's glue size machine operator and consider transfer back to [place] versus continue to manage medically here. If she should worsen she will likely need transfer. 01/24/17 08:48 Acute on chronic resp failure -severe pulmonary edema is improving clinically and radiologically following diuresis with IV Bumex -continue with Lasix 60 mg in the am plus extra dose of 40 mg at 1400 -work on weaning oxygen - she's on 5L currently and I discussed with staff to wean this down to 2-3L if able -weight is trending down - cont to follow I&O -cancel CT chest -bicarb on BMP improving -cont steroid taper for suspected COPD exac. Hypernatremia -stable at 145 even with extra diuresis Psych -Mirtazapine added HS 01/25/17 09:50 Pulmonary edema -clinically improving -CXR this morning - continues to show B/L effusions (R>L) but edema appears improved on personal review -Lasix resumed at baseline dose of 60 mg daily -continue home O2, nocturnal BiPAP (as pt tolerates) and daily weights -hypernatremia is mild at 145 -other electrolytes have remained stable through extra diuresis 01/25/2017-I reviewed this chart, the patient history, and the SPUD GRADER's/PA's documented findings as above. We discussed and formulated the assessment and plan as above with the additions below.-Dr. Chavez The patient was seen earlier today by my nurse practitioner as noted above. At that time she seemed to be doing okay. This afternoon, I spoke with the respiratory therapist who states that at one point today she was on 3-1/2 L and O2 sat was 99%. Chest x-ray today read by radiology showed a moderate right pleural effusion and a small left pleural effusion with atelectasis. I have reviewed her x-ray and I do agree her pulmonary edema appears better. When I came to see the patient this afternoon, she was lying in bed and mumbling stating she just wanted to sleep. She has been refusing BiPAP for the last several days and at most will only tolerated about 10 minutes. She is currently on 5 L of oxygen with O2 sat of 91% and heart rate ranging from 100 to 115. Lungs reveal decreased breath sounds in the bases, no wheezes or rhonchi. Cardiovascular reveals an irregularly irregular rhythm with borderline tachycardic rate. Abdomen is soft. Extremities reveal +1 edema. At this point, pulmonary edema appears to be better and she has improved from Wednesday when she was in florid pulmonary edema. Unfortunately, with continued diuresis she has not improved much over the weekend and today. Prior to admission she was on 2 L of oxygen and has been needing 5 L or more the majority of the time this weekend and today. She is not tolerating BiPAP, which makes treatment of her COPD more difficult because of her CO2 retention. I talked with ULYSSES Lindsey for generations. I discussed with him that the patient 's pulmonary and cardiac status is worse than her baseline and her improvement has plateaued. I discussed with him options including transferring to inpatient care in [place] for more aggressive care of her cardiopulmonary issues with her glue size machine operator and repairer pump, versus if the family does not want to be aggressive we can continue current nonaggressive cardiopulmonary care in generations while we try to improve her psychiatric issues, versus consideration for hospice. César has discussed these issues with Dr. Husain and they plan to discuss options with the family. Psychiatric -Dr. Husain's noted reviewed: HS doses of Mirtazipine and Zyprexa doses increased 01/26/17 18:03
[2017-01-26] MEDS: LORazepam INTENSOL 1mg/0.5ml ORAL LIQUID SL PRN (19:39)
--- NOTE | 2017-01-26 20:54 | Neuropsych Progress Note ---
Generations Subjective Date: 01/26/17 - Sujective/Severity of Illness Medications: Acetaminophen (Tylenol) 650 mg PO Q4H PRN PRN Reason: Pain Albuterol/Ipratropium (Duoneb) 3 ml IH BID [facility] Last Admin: 01/26/17 12:23 Dose: Not Given Albuterol/Ipratropium (Duoneb) 3 ml IH Q2H PRN PRN Reason: Shortness of air Last Admin: 01/16/17 15:14 Dose: 3 ml Albuterol/Ipratropium (Duoneb) 3 ml IH RTQID [facility] Last Admin: 01/26/17 19:05 Dose: 3 ml Apixaban (Eliquis) 2.5 mg PO BID [facility] Last Admin: 01/26/17 09:24 Dose: 2.5 mg Aspirin (Ecotrin) 81 mg PO DAILY [facility] Last Admin: 01/26/17 09:25 Dose: 81 mg Benzonatate (Tessalon Perles) 100 mg PO BID [facility] Last Admin: 01/26/17 09:25 Dose: 100 mg Bisacodyl (Dulcolax) 10 mg RECTALLY DAILY PRN PRN Reason: Constipation Budesonide (Pulmicort Inhalation) 0.5 mg AEROSOL RTBID [facility] Last Admin: 01/26/17 19:05 Dose: 0.5 mg Cholecalciferol (Vitamin D-3) 1,000 unit PO DAILY [facility] Last Admin: 01/26/17 09:25 Dose: 1,000 unit Diltiazem HCl (Cardizem Cd) 180 mg PO DAILY [facility] Last Admin: 01/26/17 09:24 Dose: 180 mg Docusate Sodium (Colace) 100 mg PO BID [facility] Last Admin: 01/26/17 09:25 Dose: 100 mg Ferrous Sulfate (Feosol) 324 mg PO BIDWM [facility] Last Admin: 01/26/17 18:31 Dose: 324 mg Furosemide (Lasix) 60 mg PO DAILY [facility] Last Admin: 01/26/17 09:24 Dose: 60 mg Furosemide (Lasix) 40 mg PO 1400 [facility] Last Admin: 01/24/17 13:15 Dose: 40 mg Haloperidol (Haldol) 0.5 mg PO Q6H PRN PRN Reason: Extreme agitation Haloperidol Lactate (Haldol) 0.5 mg IM Q6H PRN PRN Reason: Extreme agitation Lorazepam (Ativan) 0.5 mg PO Q6H PRN PRN Reason: Extreme agitation Last Admin: 01/23/17 20:35 Dose: 0.5 mg Lorazepam (Ativan Inj) 0.5 mg IM Q6H PRN PRN Reason: Extreme agitation Lorazepam (Ativan Intensol) 0.5 mg SL Q6H PRN Last Admin: 01/26/17 19:39 Dose: 0.5 mg Magnesium Hydroxide (Mom) 30 ml PO PRN PRN PRN Reason: Constipation Melatonin (Melatonin) 3 mg PO 2100 [facility] Last Admin: 01/25/17 20:30 Dose: 3 mg Mirtazapine (Remeron) 22.5 mg PO HS [facility] Olanzapine (Zyprexa) 7.5 mg PO HS [facility] Last Admin: 01/25/17 20:30 Dose: 7.5 mg Omeprazole (Prilosec) 20 mg PO ACB [facility] Last Admin: 01/26/17 05:48 Dose: 20 mg Polyethylene Glycol (Miralax) 17 gm PO DAILY [facility] Last Admin: 01/26/17 09:27 Dose: 17 gm Potassium Chloride (K-Dur) 20 meq PO BIDWM [facility] Last Admin: 01/26/17 18:31 Dose: 20 meq Prednisone (Deltasone) 20 mg PO WB [facility] Last Admin: 01/26/17 09:26 Dose: 20 mg Sodium Chloride (Iv Flush) 10 - 80 ml IVF PRN PRN PRN Reason: Flushing Last Admin: 01/24/17 13:16 Dose: 10 ml Trolamine Salicylate (Aspercreme) 1 applic TOP Q8H PRN PRN Reason: Pain Subjective: Pt seen. chart reviewed. case discussed w rn and unit coordinators. she was fairly lucid and able to track and converse with me this am. she reports her mood is "good, it's always good" but rn reports she does have episodes of agitation still. she slept poorly again and had some agitation thru the night, was pulling off bipap as per her usual. she got ativan last night with minimal benefit. remains confused at times. cooperative w me and pleasant. she maintains "i don't want to be aggressive on anything but i'm not ready to ." Start Time: 10:00 Stop Time: 10:15 Mental Status Exam Vitals: Last Vital Signs Temp 99.2 F 01/26/17 16:00 Pulse 106 H 01/26/17 16:00 Resp 18 01/26/17 19:05 BP 124/74 01/26/17 16:00 Pulse Ox 95 01/26/17 16:00 Height: 4 ft 10 in Weight: 51.2 kg - Mental Status Exam Muscle Strength/Tone: Normal Dressing: Casual Grooming: Fair Attitude: Cooperative Motor Activity: Retardation Eye Contact: Fair Speech: Slowed Volume: Soft Rhythm: Appropriate Rhythm Orientation: Disoriented to time, Oriented to person, Oriented to place Mood: Neutral, Irritable (at times, but has been quite pleasant w me.) Rate of Thoughts: Delayed Thought Organization: Organized Associations: Illogical Abstract Reasoning: Poor abstract reasoning Thought Content: Delusions Perception/Psychotic: Hx psychosis, not current Language: Naming Intact Memory: Poor-immediate, Poor-recent Suicidal Ideation: Denies Homicidal Ideation: Denies Insight: Limited Judgement: Limited Impulse Control: Poor - Laboratory Result Diagrams: 01/24/17 00:56 01/26/17 18:14 Laboratory Results - last 24 hr 01/26/17 18:14 Turbidity < 20 Sodium 145 H Potassium 4.4 Chloride 100 Carbon Dioxide 35 H Anion Gap 10 BUN 35.0 H Creatinine 1.1 GFR Calculation 47 BUN/Creatinine Ratio 32 H Glucose 201 H Calculated Osmolality 293 H Calcium 8.6 Icterus Index < 2 Specimen Hemolysis < 15 Assessment and Plan (1) Dementia with behavioral disturbance Qualifiers: Dementia type: unspecified type Qualified Code(s): F03.91 - Unspecified dementia with behavioral disturbance Current visit: Yes Status: Acute (2) Major neurocognitive disorder Problem details: With behavioral disturbance Current visit: Yes Status: Acute increase mirtazapine to 22.5mg po q hs. team to get family to get involved in assisting pt with decision as to whether they would like to be more aggressive from cardiopulmonary standpoint or not.
[2017-01-26] MEDS: MELATONIN 1 MG TABLET PO SCH (21:27)
[2017-01-26] MEDS: MIRTAZAPINE 15 MG TABLET PO SCH (21:28)
[2017-01-26] MEDS: OLANZapine 5 MG TABLET PO SCH (21:28)
[2017-01-27] MEDS: BUDESONIDE INH.SOLN 0.5mg/2ml NEB AEROSOL SCH ×3 (07:05→21:00)
[2017-01-27] MEDS: IPRATROPIUM/ALBUTEROL 2.5mg-0.5mg/3ml NEB IH SCH ×5 (07:05→21:00)
[2017-01-27] MEDS: FERROUS SULFATE 324 MG TABLET PO SCH ×2 (08:50→18:05)
[2017-01-27] MEDS: PredniSONE 20 MG TABLET PO SCH (08:50)
[2017-01-27] MEDS: OMEPRAZOLE 20 MG CAPSULE PO SCH (08:50)
[2017-01-27] MEDS: APIXABAN 5 MG TABLET PO SCH ×2 (08:51→22:10)
[2017-01-27] MEDS: ASPIRIN *EC* 81 MG TABLET PO SCH (08:51)
[2017-01-27] MEDS: DOCUSATE SODIUM 100 MG CAPSULE PO SCH ×2 (08:51→22:13)
[2017-01-27] MEDS: POLYETHYL GLYCOL 3350 17gm PACKET PO SCH (08:52)
[2017-01-27] MEDS: BENZONATATE 100 MG CAPSULE PO SCH ×2 (08:53→22:10)
[2017-01-27] MEDS: FUROSEMIDE 40 MG TABLET PO SCH (08:53)
--- NOTE | 2017-01-27 09:52 | Progress Note ---
<RosalbaReanna Mary - Last Filed: 01/27/17 09:47> Subjective: Pam was seen at the breakfast table. She was engaging in conversation with other patients, and was enjoying watching the geese out the window. She denied feeling short of breath or having any chest discomfort. She was in good spirits. Currently, but last night she was argumentative and was yelling at staff. Her heart rate was also elevated last night at 142 - this morning it was 101. She tolerated BiPAP for much of the night. Objective Vital signs: Temp Pulse Resp BP Pulse Ox 99.7 F 142 H 22 101/82 95 01/26/17 21:00 01/26/17 21:00 01/27/17 07:05 01/26/17 21:00 01/27/17 07:05 Weight: 50.6 kg - Constitutional Present: mild distress, thin, cooperative - Routine HEENT Exam Eye: Absent: conjunctival icterus ENT: Present: mucous membranes moist - Routine Respiratory Exam Present: diminished air movement - Routine Cardiovascular Exam Present: irregularly irregular (slightly tachycardic - about 110 on exam) - Routine Abdominal Exam Present: soft, non distended, non tender - Routine Extremities Exam Present: edema (2+ BLE) - Routine Skin Exam Present: intact, dry, warm - Routine Neurological Exam Present: alert, oriented X3 - Routine Psychiatric Exam Present: normal affect, normal thought process Results - Labs CBC & Chem 7: 01/24/17 00:56 01/27/17 04:52 - ABG Interpretation ABG results: 01/22/17 01/23/17 01/24/17 10:16 18:34 00:59 ABG pH 7.300 L 7.310 L ABG pCO2 63 H* 69 H* ABG pO2 49 L 80 ABG HCO3 31 H 35 H ABG Total CO2 32.9 H 36.8 H ABG O2 Saturation 80.0 L 95.0 ABG Base Excess 3.0 H 6.3 H VBG pH 7.380 VBG pCO2 54 H VBG pO2 73 H VBG HCO3 32 H VBG Total CO2 33.6 VBG O2 Saturation 94.0 VBG Base Excess 5.4 H Assessment and Plan (1) Hx of pleural effusion Current visit: Yes Status: Acute (2) Coronary artery disease Current visit: Yes Status: Acute (3) A-fib Current visit: Yes Status: Acute (4) Chronic anticoagulation Current visit: Yes Status: Acute (5) Diastolic heart failure Current visit: Yes Status: Acute (6) Anemia Current visit: Yes Status: Acute (7) Mitral regurgitation Current visit: Yes Status: Acute s/p Mitral Clip x2 in November by Dr. Loya (8) HTN (hypertension) Current visit: Yes Status: Acute (9) Respiratory failure Current visit: Yes Status: Acute Acute on chronic- Normal O2 at 2L at home Assessment and Plan: Acute on chronic hypoxic respiratory failure, diastolic CHF, pulmonary edema, pleural effusion, and A-fib -improving -O2 requirements slowly improving - on 4L this am -continue BiPAP HS, as pt tolerates -A-fib rates typically <120 while on cardizem; but at times it increases to 130- 140. Received an extra dose of cardizem last night. Will increase daily cardizem dose to 240 mg daily. -Dr. Booth' note reviewed - could consider restarting carvedilol if HR or BP becomes an issue. He prefers to keep her on the dry side. Repeat thoracentesis is not recommended per pulmonology. -routine diuretic is Lasix 60 mg daily; she may need additional dose of diuretic in the afternoon. Hypernatremia -Na up to 147 -may need to tolerate higher sodium levels given her tenuous fluid status Expect family meeting today to discuss goals of care -looking for clarification on aggressive vs. conservative treatment of cardiac issues - if they wish to pursue aggressive treatment we may need to transfer back to [place]. -Also would like opinion on resuming carvedilol. Sepsis Assessment - Evaluation Sepsis screening result: No Definite Risk - Focused Exam Vital Signs Resp Pulse Ox 01/27/17 07:05 22 95 Respiratory exam: Present: CTA bilaterally Cardiovascular exam: Present: RRR, S1, S2 Capillary refill: > 3 Seconds Hospital Course Summary Disclaimer: The visit summary below is not to be considered part of the above Progress Note. Hospital Course: 01/16/17 09:56 Agree with admission to [facility] for further psychiatric evaluation and treatment. Continue on chronic oxygen at 4 liters by nasal cannula as well as CPAP at night. Continue with scheduled DuoNeb breathing treatments twice a day Chronic cardiac medications including Lasix 60 milligrams daily, Cardizem 180 milligrams daily Continue chronic anticoagulation, Eliquis 2.5 milligrams twice a day 01/19/17 09:51 CHF -CXR on 01/17 showed moderate CHF with pleural effusions. Crackles heard today on exam and 1-2+ BLE edema. Repeat CXR now. -may need to add an extra dose of Lasix - currently takes 60 mg daily. -weight is up about 0.5 kg. -continue oxygen and BiPAP HS Anemia, macrocytic -Hgb continues to trend down. -B12, ferritin, folate - normal; will check iron -check stool for occult blood Leukocytosis -resolved -repeat CBC in am Hypernatremia -mild, monitor closely especially since she's on Lasix -repeat BMP in am CKD -renal function improved with cr down to 1.1 A-fib -on Eliquis -rate fairly well controlled on diltiazem Behavioral disturbance -Psych notes reviewed. Seroquel increased. 01/21/17 16:33 CHF -Weight slowly increasing - 51.1 kg -Breathing at baseline -JASON watkins ordered -monitor fluid status closely Hypernatremia -increased to 147 -Lasix dose reduced Macrocytic anemia -iron level pending -stool for occult blood - neg -hgb increased to 8.8 Psych -HS seroquel increased 01/22/17 12:47 HF with acute hypoxic respiratory failure -hypoxic on 10L in the mid-80s. RT at bedside to place back on BiPAP. -ABG and stat CXR ordered. Check EKG and troponin. -Bumex 1 mg IV x1 now Pt improved on BiPAP - satting 100% Discussed with Dr. Chavez, who also evaluated the patient ABG showed resp acidosis - should improve with BiPAP CXR personally reviewed - severe pulm edema Labs reviewed - hypernatremia had improved 01/23/17 14:53 Pt. reports feeling a little better today. She is still very wheezy. Did not wear Bipap last night as she couldnt sleep. Weight is down about 1 lb since yesterday. Chart has been extensively reviewed. D/W Dr. Chavez as well. Will obtain CT of the chest to further evaluate effusions- may need repeat thoracentesis. Need to stop Diamox given her known resp. failure with acidosis. Increase Lasix to 60 mg AM, 40mg PM. Suspect a strong COPD component- given IM steroid now and then PO taper. May exacerbate irritability, but we need to get her breathing better. Repeat labs in AM. If no significant improvement, we may need to move to medical floor or transfer to [place] for continuation of care and Pulm assistance. Continue Duoneb- increase to QID. Add pulmicort. DC Mucinex due to reported SE. Daughter states that she could take liquid guiafenesin if needed. Extensive time spent on this patient in the review of the records, viewing images, D/W staff and Dr. Chavez (> 45 minutes). 01/23/2017-I reviewed this chart, the patient history, and the RELAY WORKER's/PA's documented findings as above. We discussed and formulated the assessment and plan as above with the additions below.-Dr. Chavez The patient has been needing between 3 and 6 L of oxygen today. Apparently she was on 3 L for only a short period of time. Currently she is on 5 L of oxygen. She denies feeling short of breath and she denies any pain. She refused her BiPAP last night. Her O2 sat is somewhat labile and I think this is secondary to sacral monitor not picking up well with her A. fib. Heart rate has been improved from yesterday and is in the 90s to low 100s. She is requesting to be up walking more frequently. She is eating well. She does agree to use her BiPAP tonight. On exam the patient has decreased breath sounds in the bases with minimal crackles in the mid lung tamayo. No wheezing on my exam. Cardiovascular reveals a borderline tachycardic rate with an irregular rhythm. Abdomen is soft and nontender. Extremities reveal trace pretibial edema. Weight is down about half a kilogram since yesterday but is up overall about 2.3 kg since admission. Repeat chest x-ray this evening shows pulmonary edema and right pleural effusion. Pulmonary edema is improved on my read compared to yesterday. ABG shows pH of 7.31/PCO2 69/by mouth 2 of 80 with O2 sat of 95% on 5 L. Oxygenation is improved markedly compared to yesterday. She does have some increase in CO2 today which I think should improve with using her BiPAP. Will give 1 dose of Bumex now. Lasix was increased today. I did call and talk with the patient's daughter this evening. I did update her on the patient's condition which is a little better compared to yesterday. She has had significant difficulties with pulmonary edema and pleural effusion off and on for the past several months. I discussed options with the patient's daughter regarding the patient's care. At this time she would like to keep her in the hospital here and continue with current treatment and reevaluate tomorrow. If not improving tomorrow could discuss with the patient's social media senior associate and consider transfer back to [place] versus continue to manage medically here. If she should worsen she will likely need transfer. 01/24/17 08:48 Acute on chronic resp failure -severe pulmonary edema is improving clinically and radiologically following diuresis with IV Bumex -continue with Lasix 60 mg in the am plus extra dose of 40 mg at 1400 -work on weaning oxygen - she's on 5L currently and I discussed with staff to wean this down to 2-3L if able -weight is trending down - cont to follow I&O -cancel CT chest -bicarb on BMP improving -cont steroid taper for suspected COPD exac. Hypernatremia -stable at 145 even with extra diuresis Psych -Mirtazapine added HS 01/25/17 09:50 Pulmonary edema -clinically improving -CXR this morning - continues to show B/L effusions (R>L) but edema appears improved on personal review -Lasix resumed at baseline dose of 60 mg daily -continue home O2, nocturnal BiPAP (as pt tolerates) and daily weights -hypernatremia is mild at 145 -other electrolytes have remained stable through extra diuresis 01/25/2017-I reviewed this chart, the patient history, and the RELAY WORKER's/PA's documented findings as above. We discussed and formulated the assessment and plan as above with the additions below.-Dr. Chavez The patient was seen earlier today by my nurse practitioner as noted above. At that time she seemed to be doing okay. This afternoon, I spoke with the respiratory therapist who states that at one point today she was on 3-1/2 L and O2 sat was 99%. Chest x-ray today read by radiology showed a moderate right pleural effusion and a small left pleural effusion with atelectasis. I have reviewed her x-ray and I do agree her pulmonary edema appears better. When I came to see the patient this afternoon, she was lying in bed and mumbling stating she just wanted to sleep. She has been refusing BiPAP for the last several days and at most will only tolerated about 10 minutes. She is currently on 5 L of oxygen with O2 sat of 91% and heart rate ranging from 100 to 115. Lungs reveal decreased breath sounds in the bases, no wheezes or rhonchi. Cardiovascular reveals an irregularly irregular rhythm with borderline tachycardic rate. Abdomen is soft. Extremities reveal +1 edema. At this point, pulmonary edema appears to be better and she has improved from Wednesday when she was in florid pulmonary edema. Unfortunately, with continued diuresis she has not improved much over the weekend and today. Prior to admission she was on 2 L of oxygen and has been needing 5 L or more the majority of the time this weekend and today. She is not tolerating BiPAP, which makes treatment of her COPD more difficult because of her CO2 retention. I talked with ULYSSES Lindsey for [facility]. I discussed with him that the patient 's pulmonary and cardiac status is worse than her baseline and her improvement has plateaued. I discussed with him options including transferring to inpatient care in [place] for more aggressive care of her cardiopulmonary issues with her social media senior associate and eligibility and occupancy interviewer, versus if the family does not want to be aggressive we can continue current nonaggressive cardiopulmonary care in [facility] while we try to improve her psychiatric issues, versus consideration for hospice. César has discussed these issues with Dr. Husain and they plan to discuss options with the family. Psychiatric -Dr. Husain's noted reviewed: HS doses of Mirtazipine and Zyprexa doses increased 01/26/[address] Husain yesterday and he and César, clinical social work msw, had spoken with family and they wanted to have a family meeting today and decide on level of care. Today, they have decided to wait and have the meeting tomorrow. Family is aware that continuous monitoring of blood pressure, heart rate and oxygenation is very difficult in the [facility] unit and at this time they went the patient to continue to stay in [facility]. At this time, the patient appears to be doing about the same as yesterday. She appears in no distress. On exam she is tachycardic with borderline low oxygenation on 4 L. She does have JVD. We'll give an extra dose of Cardizem 30 mg by mouth now immediate release. Will give Bumex 1 mg IV 1. We'll repeat a BMP now. Repeat BMP tomorrow. May need to increase Cardizem CD tomorrow versus consider adding beta sarah. 01/27/17 10:05 Acute on chronic hypoxic respiratory failure, diastolic CHF, pulmonary edema, pleural effusion, and A-fib -improving -O2 requirements slowly improving - on 4L this am -continue BiPAP HS, as pt tolerates -A-fib rates typically <120 while on cardizem; but at times it increases to 130- 140. Received an extra dose of cardizem last night. Will increase daily cardizem dose to 240 mg daily. -Dr. Booth' note reviewed - could consider restarting carvedilol if HR or BP becomes an issue. He prefers to keep her on the dry side. Repeat thoracentesis is not recommended per pulmonology. -routine diuretic is Lasix 60 mg daily; she may need additional dose of diuretic in the afternoon. Hypernatremia -Na up to 147 -may need to tolerate higher sodium levels given her tenuous fluid status Expect family meeting today to discuss goals of care -looking for clarification on aggressive vs. conservative treatment of cardiac issues - if they wish to pursue aggressive treatment we may need to transfer back to [place]. -Also would like opinion on resuming carvedilol. <Tere Chavez - Last Filed: 01/27/17 18:41> Objective Vital signs: Temp Pulse Resp BP Pulse Ox 98.5 F 109 H 16 121/66 98 01/27/17 15:36 01/27/17 15:36 01/27/17 15:40 01/27/17 15:36 01/27/17 15:40 Results - Labs CBC & Chem 7: 01/24/17 00:56 01/27/17 04:52 - ABG Interpretation ABG results: 01/22/17 01/23/17 01/24/17 10:16 18:34 00:59 ABG pH 7.300 L 7.310 L ABG pCO2 63 H* 69 H* ABG pO2 49 L 80 ABG HCO3 31 H 35 H ABG Total CO2 32.9 H 36.8 H ABG O2 Saturation 80.0 L 95.0 ABG Base Excess 3.0 H 6.3 H VBG pH 7.380 VBG pCO2 54 H VBG pO2 73 H VBG HCO3 32 H VBG Total CO2 33.6 VBG O2 Saturation 94.0 VBG Base Excess 5.4 H Assessment and Plan (1) Hx of pleural effusion Current visit: Yes Status: Acute (2) Coronary artery disease Current visit: Yes Status: Acute (3) A-fib Current visit: Yes Status: Acute (4) Chronic anticoagulation Current visit: Yes Status: Acute (5) Diastolic heart failure Current visit: Yes Status: Acute (6) Anemia Current visit: Yes Status: Acute (7) Mitral regurgitation Current visit: Yes Status: Acute (8) HTN (hypertension) Current visit: Yes Status: Acute (9) Respiratory failure Current visit: Yes Status: Acute Assessment and Plan: 01/27/2017-I reviewed this chart, the patient history, and the RELAY WORKER's/PA's documented findings as above. We discussed and formulated the assessment and plan as above with the additions below.-Dr. Chavez I saw and examined the patient independently of my nurse practitioner. Patient was seen this afternoon. She states she is feeling well. She denies feeling short of breath. She denies any chest pains or palpitations. She denies any lightheadedness. She states she's been walking okay and occasionally feels a little bit short of breath if she walks a long distance. She denies any lightheadedness. She has been eating and drinking well. She did use her BiPAP last night. She is currently sitting at the table going over her medications with her nurse. The patient does not think she needs any psychiatric or mood altering medications. On exam she is alert and in no acute distress. HEENT reveals oropharynx to be moist. Neck is supple with positive JVD. Chest reveals decreased breath sounds in the lower lung tamayo. No wheezes, crackles or rhonchi are heard throughout. Cardiovascular reveals a borderline tachycardic rate with an irregular rhythm. Abdomen is soft and nontender and nondistended with positive bowel sounds. Extremities reveal 2+ ankle edema. I did discuss the patient with her social media senior associate Dr. Booth. He recommended obtaining an echocardiogram to see how her ejection fraction is doing at this time. He recommended continued diuresis. He stated if ejection fraction is okay , could consider adding low-dose Coreg to help with rate control. He stated another option would be to start amiodarone. I asked him whether the patient would benefit from transfer to [place] for further cardiology care and he stated he didn't think there was much different that they continue their van here and treatment would be palliative. I later had a family meeting with the patient's daughter, granddaughter, home health care case manager and respiratory therapists. I discussed with them how the patient is doing medically. Overall, she had pulmonary edema requiring increased oxygen needs on Wednesday that improved with IV diuretics and BiPAP. Prior to admission she was chronically on 2 L of oxygen and using BiPAP at night. Currently she is needing 4-5 L of oxygen and using BiPAP at night. She is not back to her baseline, but has improved since Wednesday and Wednesday. I discussed with them Dr. Booth's recommendation for echocardiogram and they were okay with this. We also discussed option of going to [place], which would be the most aggressive treatment of her cardiac issues versus admission to acute care so we can concentrate more on her cardiac issues and place her on continuous monitoring, versus continuing [facility] with frequent vital signs testing and continue to treat for CHF and A. fib with borderline rapid ventricular response. The patient's daughter stated that she would be talking with her brothers and then making a decision. From a psychiatric standpoint, I think the patient would do better staying in [facility] until her psychiatrist felt that she had stabilized. Today, I will order an echocardiogram. Will decrease fluid restriction to 1.2 L. Will discontinue prednisone. The patient's daughter did state that she did have pulmonary function testing with Dr. Aranda in the fall of 2015 and was told she only had moderate COPD at that time. Sepsis Assessment - Focused Exam Vital Signs Temp Pulse Resp BP Pulse Ox 01/27/17 15:40 16 98 01/27/17 15:36 98.5 F 109 H 16 121/66 95 01/27/17 11:00 22 95 01/27/17 08:00 98.4 F 101 H 20 128/79 94 01/27/17 07:05 22 95 Hospital Course Summary Disclaimer: The visit summary below is not to be considered part of the above Progress Note.
[2017-01-27] MEDS: SALINE FLUSH 10ml SYRINGE IVF PRN ×2 (12:30→18:05)
[2017-01-27] MEDS ORDERED: FUROSEMIDE 20 MG/2 ML INJECTION IVP ONE (16:47)
--- NOTE | 2017-01-27 21:14 | Echocardiogram ---
DATE OF SERVICE 01/26/2017 INDICATION Congestive heart failure. TECHNICAL QUALITY Technically good 2D, M-mode, and Doppler echocardiographic images were submitted for interpretation. FINDINGS 1. CARDIAC CHAMBERS: Left atrium is enlarged. It measured 4.6 cm. All other cardiac chambers are normal in size. Aortic root diameter is normal. RV size and contractility appear normal. 2. LEFT VENTRICLE: Wall thickness is normal. Wall motion analysis is normal. Systolic function is normal. EF of 69%. 3. VALVES: Aortic, mitral, and tricuspid valve exhibits sclerosis. There is a prominent subvalvular calcification present in the mitral valve. Valve opening appears preserved. Tricuspid valve structure and motion appear normal. Normal valve excursion otherwise. 4. DOPPLER: Mitral inflow does not allow E/A ratio assessment due to underlying atrial fibrillation. Mitral stenosis study shows a mean pressure gradient of 7 mmHg. Maximum gradient of 20 mmHg. Signs are suggestive of up to moderate mitral stenosis. At least moderate mitral regurgitation is present , directed anteriorly. Trace aortic regurgitation. Mild aortic stenosis with a peak flow velocity of 2.0 meters per second compared with 1.15 meters per second at the LVOT level. Central venous pressure is elevated on IVC caliber. It exhibits that minimal respiratory variation. Pulmonary hypertension is present with systolic PA pressure estimated at 57 mmHg. IMPRESSION 1. Left atrial enlargement, marked. 2. Normal LV systolic function with EF of 69%. 3. Mitral valve leaflets appears mildly sclerotic. Valve opening appears restricted to a moderate degree. The anterior leaflet appears tethered. 4. Moderate mitral valve stenosis and at least moderate mitral regurgitation ( [id number]). 5. Patient was in underlying atrial fibrillation during this study. 6. Very mild aortic stenosis. 7. Severe tricuspid regurgitation. 8. Severe pulmonary hypertension. 9. Elevated central venous pressure. 10. Small posterior pericardial effusion. 11. Pleural effusion. 12. Biatrial enlargement. MTDD
[2017-01-27] MEDS: MELATONIN 1 MG TABLET PO SCH (22:10)
[2017-01-27] MEDS: OLANZapine 5 MG TABLET PO SCH (22:11)
[2017-01-27] MEDS: MIRTAZAPINE 15 MG TABLET PO SCH (22:12)
--- NOTE | 2017-01-27 22:32 | Neuropsych Progress Note ---
[facility] Subjective Date: 01/28/17 - Sujective/Severity of Illness Medications: Acetaminophen (Tylenol) 650 mg PO Q4H PRN PRN Reason: Pain Albuterol/Ipratropium (Duoneb) 3 ml IH BID [facility] Last Admin: 01/26/17 12:23 Dose: Not Given Albuterol/Ipratropium (Duoneb) 3 ml IH Q2H PRN PRN Reason: Shortness of air Last Admin: 01/16/17 15:14 Dose: 3 ml Albuterol/Ipratropium (Duoneb) 3 ml [facility] RTQID [facility] Last Admin: 01/27/17 21:00 Dose: 3 ml Apixaban (Eliquis) 2.5 mg PO BID [facility] Last Admin: 01/27/17 22:10 Dose: 2.5 mg Aspirin (Ecotrin) 81 mg PO DAILY [facility] Last Admin: 01/27/17 08:51 Dose: 81 mg Benzonatate (Tessalon Perles) 100 mg PO BID [facility] Last Admin: 01/27/17 22:10 Dose: 100 mg Bisacodyl (Dulcolax) 10 mg RECTALLY DAILY PRN PRN Reason: Constipation Budesonide (Pulmicort Inhalation) 0.5 mg AEROSOL RTBID [facility] Last Admin: 01/27/17 21:00 Dose: 0.5 mg Cholecalciferol (Vitamin D-3) 1,000 unit PO DAILY [facility] Last Admin: 01/27/17 08:53 Dose: 1,000 unit Diltiazem HCl (Cardizem Cd) 180 mg PO DAILY [facility] Last Admin: 01/27/17 08:51 Dose: 180 mg Diltiazem HCl (Cardizem Cd) 240 mg PO DAILY [facility] Docusate Sodium (Colace) 100 mg PO BID [facility] Last Admin: 01/27/17 22:13 Dose: 100 mg Ferrous Sulfate (Feosol) 324 mg PO BIDWM [facility] Last Admin: 01/27/17 18:05 Dose: 324 mg Furosemide (Lasix) 60 mg PO DAILY [facility] Last Admin: 01/27/17 08:53 Dose: 60 mg Furosemide (Lasix) 40 mg PO 1400 [facility] Last Admin: 01/24/17 13:15 Dose: 40 mg Haloperidol (Haldol) 0.5 mg PO Q6H PRN PRN Reason: Extreme agitation Haloperidol Lactate (Haldol) 0.5 mg IM Q6H PRN PRN Reason: Extreme agitation Lorazepam (Ativan) 0.5 mg PO Q6H PRN PRN Reason: Extreme agitation Last Admin: 01/23/17 20:35 Dose: 0.5 mg Lorazepam (Ativan Inj) 0.5 mg IM Q6H PRN PRN Reason: Extreme agitation Lorazepam (Ativan Intensol) 0.5 mg SL Q6H PRN Last Admin: 01/26/17 19:39 Dose: 0.5 mg Magnesium Hydroxide (Mom) 30 ml PO PRN PRN PRN Reason: Constipation Melatonin (Melatonin) 3 mg PO 2100 JIM Last Admin: 01/27/17 22:10 Dose: 3 mg Mirtazapine (Remeron) 22.5 mg PO HS [facility] Last Admin: 01/27/17 22:12 Dose: 22.5 mg Olanzapine (Zyprexa) 7.5 mg PO HS [facility] Last Admin: 01/27/17 22:11 Dose: 7.5 mg Omeprazole (Prilosec) 20 mg PO ACB [facility] Last Admin: 01/27/17 08:50 Dose: 20 mg Polyethylene Glycol (Miralax) 17 gm PO DAILY J[facility] Last Admin: 01/27/17 08:52 Dose: 17 gm Potassium Chloride (K-Dur) 20 meq PO BIDWM JIM Last Admin: 01/27/17 18:06 Dose: 20 meq Prednisone (Deltasone) 10 mg PO WB [facility] Stop: 01/29/17 06:00 Sodium Chloride (Iv Flush) 10 - 80 ml IVF PRN PRN PRN Reason: Flushing Last Admin: 01/27/17 18:05 Dose: 20 ml Trolamine Salicylate (Aspercreme) 1 applic TOP Q8H PRN PRN Reason: Pain Subjective: Patient seen and chart reviewed. Case discussed with treatment team. On interview, patient is sitting in dayroom with staff and is pleasant throughout interview. She talks about wanting to simplify and give her things away to family members. It does not sound that bizarre upon interview but family later states that this is confusion or delusional thinking on her part. Patient reports her mood is good and she is feeling better physically. Patient denies any SI, HI or AVH. Patient denies any adverse side effects related to psychotropic medications. Nursing staff report patient has been intermittently agitated, demanding, and threw juice at a staff member. Patient slept 6 hours overnight. HR elevated as high as 142 at one point. sychotropic PRNs required in the past 24 hours: lorazepam 0.5mg PO at 1939 on . Family meeting tonight to discuss goals of care and discharge planning. Start Time: 19:00 Stop Time: 19:20 Mental Status Exam Vitals: Last Vital Signs Temp 99.8 F 01/27/17 20:57 Pulse 115 H 01/27/17 20:57 Resp 16 01/27/17 21:00 BP 133/73 01/27/17 20:57 Pulse Ox 98 01/27/17 21:00 Height: 1.47 m Weight: 51.3 kg - Mental Status Exam Muscle Strength/Tone: Normal Dressing: Casual Grooming: Fair Attitude: Cooperative (on interview, can be argumentative with other staff) Motor Activity: Retardation Eye Contact: Fair Speech: Slowed Volume: Soft Rhythm: Appropriate Rhythm Orientation: Oriented to person, Oriented to place Mood: Neutral, Irritable (at times, but has been quite pleasant w me.) Rate of Thoughts: Delayed Thought Organization: Organized Associations: Illogical Abstract Reasoning: Poor abstract reasoning Thought Content: Delusions (decreased in frequency, seem to be manageable and nondistressing currently) Perception/Psychotic: Hx psychosis, not current Current Hallucinations: Visual (per staff) Language: Naming Intact Fund of Knowledge: Poor fund of knowledge Memory: Poor-immediate, Poor-recent Suicidal Ideation: Denies Homicidal Ideation: Denies Insight: Limited Judgement: Limited Impulse Control: Poor - Laboratory Result Diagrams: 01/24/17 00:56 01/28/17 04:52 Laboratory Results - last 24 hr 01/27/17 04:52 Turbidity < 20 Sodium 147 H Potassium 4.5 Chloride 103 Carbon Dioxide 35 H Anion Gap 9 BUN 35.0 H Creatinine 0.9 D GFR Calculation 59 BUN/Creatinine Ratio 39 H Glucose 84 Calculated Osmolality 289 H Calcium 8.1 L Icterus Index < 2 Specimen Hemolysis < 15 Assessment and Plan (1) Delirium due to multiple etiologies Current visit: Yes Status: Acute (2) Major neurocognitive disorder Problem details: With behavioral disturbance Current visit: Yes Status: Acute (3) A-fib Current visit: Yes Status: Acute (4) Anemia Current visit: Yes Status: Acute (5) Chronic anticoagulation Current visit: Yes Status: Acute (6) Coronary artery disease Current visit: Yes Status: Acute (7) Diastolic heart failure Current visit: Yes Status: Acute (8) HTN (hypertension) Current visit: Yes Status: Acute (9) Hx of pleural effusion Current visit: Yes Status: Acute (10) Mitral regurgitation Current visit: Yes Status: Acute (11) Respiratory failure Current visit: Yes Status: Acute Will make further management decisions after reviewing family meeting with RODRI Squires. Much of patient's behavior on unit seems to be intentional, would be better managed with behavioral modifications than further med increases given physical condition.
[2017-01-28] MEDS: SALINE FLUSH 10ml SYRINGE IVF PRN (00:15)
[2017-01-28] MEDS ORDERED: PredniSONE 10 MG TABLET PO SCH (08:00)
[2017-01-28] MEDS: OMEPRAZOLE 20 MG CAPSULE PO SCH (08:22)
[2017-01-28] MEDS: FERROUS SULFATE 324 MG TABLET PO SCH ×2 (08:24→17:30)
[2017-01-28] MEDS: BENZONATATE 100 MG CAPSULE PO SCH ×2 (08:25→20:49)
[2017-01-28] MEDS: APIXABAN 5 MG TABLET PO SCH ×2 (08:26→20:47)
[2017-01-28] MEDS: ASPIRIN *EC* 81 MG TABLET PO SCH (08:26)
[2017-01-28] MEDS: POLYETHYL GLYCOL 3350 17gm PACKET PO SCH (08:26)
[2017-01-28] MEDS: FUROSEMIDE 40 MG TABLET PO SCH ×2 (08:27→14:59)
[2017-01-28] MEDS: DOCUSATE SODIUM 100 MG CAPSULE PO SCH ×2 (08:28→20:47)
[2017-01-28] MEDS: IPRATROPIUM/ALBUTEROL 2.5mg-0.5mg/3ml NEB IH SCH ×6 (08:35→20:35)
[2017-01-28] MEDS: BUDESONIDE INH.SOLN 0.5mg/2ml NEB AEROSOL SCH ×2 (09:01→20:35)
--- NOTE | 2017-01-28 10:50 | Progress Note ---
<RosalbaReanna Mary - Last Filed: 01/28/17 10:47> Subjective: Pam was finishing up breakfast, and had just starting talking to a resp therapist. She states she's feeling well, and denies any shortness of breath. She was relieved to hear that Dr. Chavez spoke to Dr. Booth yesterday. She inquired about "fluid around my heart" and I told her that Dr. Booth and the it consulting director who saw her in [place] felt that draining her lung again would be too risky, and she agreed. She denies any abdominal pain or GI complaints. The resp therapist reports that a new concentrator has been ordered for her - sometimes the oxygen rate isn't accurate. She's been on 2-5L most of the time she's been in [facility]. Objective Vital signs: Temp Pulse Resp BP Pulse Ox 97.8 F 129 H 16 153/97 H 98 01/28/17 08:00 01/28/17 08:00 01/28/17 09:02 01/28/17 08:00 01/27/17 21:00 Weight: 50.6 kg - Constitutional Present: mild distress, thin, cooperative - Routine HEENT Exam ENT: Present: mucous membranes moist, oropharynx clear - Routine Respiratory Exam Present: diminished air movement - Routine Cardiovascular Exam Present: murmur, irregularly irregular - Routine Abdominal Exam Present: soft, normoactive bowel sounds, non distended, non tender - Routine Extremities Exam Present: edema (2+ ble) - Routine Skin Exam Present: intact, dry, warm - Routine Neurological Exam Present: alert, oriented X3 - Routine Psychiatric Exam Present: normal affect, normal thought process Results - Labs CBC & Chem 7: 01/24/17 00:56 01/28/17 04:52 - ABG Interpretation ABG results: 01/22/17 01/23/17 01/24/17 10:16 18:34 00:59 ABG pH 7.300 L 7.310 L ABG pCO2 63 H* 69 H* ABG pO2 49 L 80 ABG HCO3 31 H 35 H ABG Total CO2 32.9 H 36.8 H ABG O2 Saturation 80.0 L 95.0 ABG Base Excess 3.0 H 6.3 H VBG pH 7.380 VBG pCO2 54 H VBG pO2 73 H VBG HCO3 32 H VBG Total CO2 33.6 VBG O2 Saturation 94.0 VBG Base Excess 5.4 H Assessment and Plan (1) Hx of pleural effusion Current visit: Yes Status: Acute (2) Coronary artery disease Current visit: Yes Status: Acute (3) A-fib Current visit: Yes Status: Acute (4) Chronic anticoagulation Current visit: Yes Status: Acute (5) Diastolic heart failure Current visit: Yes Status: Acute (6) Anemia Current visit: Yes Status: Acute (7) Mitral regurgitation Current visit: Yes Status: Acute s/p Mitral Clip x2 in November by Dr. Loya (8) HTN (hypertension) Current visit: Yes Status: Acute (9) Respiratory failure Current visit: Yes Status: Acute Acute on chronic- Normal O2 at 2L at home Assessment and Plan: Acute on chronic hypoxic respiratory failure, diastolic CHF, pulmonary edema, pleural effusion, and A-fib -improving -O2 requirements slowly improving, but still above baseline -continue BiPAP HS, as pt tolerates -A-fib rates typically <120 while on cardizem; but at times it increases to 130- 140. Daily cardizem dose increased to 240 mg daily. -Dr. Chavez spoke with Dr. Booth: -echo ordered to f/u on EF -if EF ok, could add low-dose Coreg to assist with rate control -continue diuresis -unlikely that more aggressive treatment at [place] would provide any greater benefit; recommends palliative support -routine diuretic is Lasix 60 mg daily; she may need additional dose of diuretic in the afternoon. Monitor closely. Weight has been stable x3 days. -fluid restriction of 1.2 L Hypernatremia -Na improved to 145 -may need to tolerate higher sodium levels given her tenuous fluid status Expect family meeting today to discuss goals of care -looking for clarification on aggressive vs. conservative treatment of cardiac issues Sepsis Assessment - Evaluation Sepsis screening result: No Definite Risk - Focused Exam Vital Signs Temp Pulse Resp BP 01/28/17 09:02 16 01/28/17 08:00 97.8 F 129 H 24 153/97 H Respiratory exam: Present: CTA bilaterally Cardiovascular exam: Present: RRR, S1, S2 Capillary refill: > 3 Seconds Hospital Course Summary Disclaimer: The visit summary below is not to be considered part of the above Progress Note. Hospital Course: 01/16/17 09:56 Agree with admission to [facility] for further psychiatric evaluation and treatment. Continue on chronic oxygen at 4 liters by nasal cannula as well as CPAP at night. Continue with scheduled DuoNeb breathing treatments twice a day Chronic cardiac medications including Lasix 60 milligrams daily, Cardizem 180 milligrams daily Continue chronic anticoagulation, Eliquis 2.5 milligrams twice a day 01/19/17 09:51 CHF -CXR on 01/17 showed moderate CHF with pleural effusions. Crackles heard today on exam and 1-2+ BLE edema. Repeat CXR now. -may need to add an extra dose of Lasix - currently takes 60 mg daily. -weight is up about 0.5 kg. -continue oxygen and BiPAP HS Anemia, macrocytic -Hgb continues to trend down. -B12, ferritin, folate - normal; will check iron -check stool for occult blood Leukocytosis -resolved -repeat CBC in am Hypernatremia -mild, monitor closely especially since she's on Lasix -repeat BMP in am CKD -renal function improved with cr down to 1.1 A-fib -on Eliquis -rate fairly well controlled on diltiazem Behavioral disturbance -Psych notes reviewed. Seroquel increased. 01/21/17 16:33 CHF -Weight slowly increasing - 51.1 kg -Breathing at baseline -JASON watkins ordered -monitor fluid status closely Hypernatremia -increased to 147 -Lasix dose reduced Macrocytic anemia -iron level pending -stool for occult blood - neg -hgb increased to 8.8 Psych -HS seroquel increased 01/22/17 12:47 HF with acute hypoxic respiratory failure -hypoxic on 10L in the mid-80s. RT at bedside to place back on BiPAP. -ABG and stat CXR ordered. Check EKG and troponin. -Bumex 1 mg IV x1 now Pt improved on BiPAP - satting 100% Discussed with Dr. Chavez, who also evaluated the patient ABG showed resp acidosis - should improve with BiPAP CXR personally reviewed - severe pulm edema Labs reviewed - hypernatremia had improved 01/23/17 14:53 Pt. reports feeling a little better today. She is still very wheezy. Did not wear Bipap last night as she couldnt sleep. Weight is down about 1 lb since yesterday. Chart has been extensively reviewed. D/W Dr. Chavez as well. Will obtain CT of the chest to further evaluate effusions- may need repeat thoracentesis. Need to stop Diamox given her known resp. failure with acidosis. Increase Lasix to 60 mg AM, 40mg PM. Suspect a strong COPD component- given IM steroid now and then PO taper. May exacerbate irritability, but we need to get her breathing better. Repeat labs in AM. If no significant improvement, we may need to move to medical floor or transfer to [place] for continuation of care and Pulm assistance. Continue Duoneb- increase to QID. Add pulmicort. DC Mucinex due to reported SE. Daughter states that she could take liquid guiafenesin if needed. Extensive time spent on this patient in the review of the records, viewing images, D/W staff and Dr. Chavez (> 45 minutes). 01/23/2017-I reviewed this chart, the patient history, and the EGG CANDLER's/PA's documented findings as above. We discussed and formulated the assessment and plan as above with the additions below.-Dr. Chavez The patient has been needing between 3 and 6 L of oxygen today. Apparently she was on 3 L for only a short period of time. Currently she is on 5 L of oxygen. She denies feeling short of breath and she denies any pain. She refused her BiPAP last night. Her O2 sat is somewhat labile and I think this is secondary to sacral monitor not picking up well with her A. fib. Heart rate has been improved from yesterday and is in the 90s to low 100s. She is requesting to be up walking more frequently. She is eating well. She does agree to use her BiPAP tonight. On exam the patient has decreased breath sounds in the bases with minimal crackles in the mid lung tamayo. No wheezing on my exam. Cardiovascular reveals a borderline tachycardic rate with an irregular rhythm. Abdomen is soft and nontender. Extremities reveal trace pretibial edema. Weight is down about half a kilogram since yesterday but is up overall about 2.3 kg since admission. Repeat chest x-ray this evening shows pulmonary edema and right pleural effusion. Pulmonary edema is improved on my read compared to yesterday. ABG shows pH of 7.31/PCO2 69/by mouth 2 of 80 with O2 sat of 95% on 5 L. Oxygenation is improved markedly compared to yesterday. She does have some increase in CO2 today which I think should improve with using her BiPAP. Will give 1 dose of Bumex now. Lasix was increased today. I did call and talk with the patient's daughter this evening. I did update her on the patient's condition which is a little better compared to yesterday. She has had significant difficulties with pulmonary edema and pleural effusion off and on for the past several months. I discussed options with the patient's daughter regarding the patient's care. At this time she would like to keep her in the hospital here and continue with current treatment and reevaluate tomorrow. If not improving tomorrow could discuss with the patient's plate shear operator and consider transfer back to [place] versus continue to manage medically here. If she should worsen she will likely need transfer. 01/24/17 08:48 Acute on chronic resp failure -severe pulmonary edema is improving clinically and radiologically following diuresis with IV Bumex -continue with Lasix 60 mg in the am plus extra dose of 40 mg at 1400 -work on weaning oxygen - she's on 5L currently and I discussed with staff to wean this down to 2-3L if able -weight is trending down - cont to follow I&O -cancel CT chest -bicarb on BMP improving -cont steroid taper for suspected COPD exac. Hypernatremia -stable at 145 even with extra diuresis Psych -Mirtazapine added HS 01/25/17 09:50 Pulmonary edema -clinically improving -CXR this morning - continues to show B/L effusions (R>L) but edema appears improved on personal review -Lasix resumed at baseline dose of 60 mg daily -continue home O2, nocturnal BiPAP (as pt tolerates) and daily weights -hypernatremia is mild at 145 -other electrolytes have remained stable through extra diuresis 01/25/2017-I reviewed this chart, the patient history, and the EGG CANDLER's/PA's documented findings as above. We discussed and formulated the assessment and plan as above with the additions below.-Dr. Chavez The patient was seen earlier today by my nurse practitioner as noted above. At that time she seemed to be doing okay. This afternoon, I spoke with the respiratory therapist who states that at one point today she was on 3-1/2 L and O2 sat was 99%. Chest x-ray today read by radiology showed a moderate right pleural effusion and a small left pleural effusion with atelectasis. I have reviewed her x-ray and I do agree her pulmonary edema appears better. When I came to see the patient this afternoon, she was lying in bed and mumbling stating she just wanted to sleep. She has been refusing BiPAP for the last several days and at most will only tolerated about 10 minutes. She is currently on 5 L of oxygen with O2 sat of 91% and heart rate ranging from 100 to 115. Lungs reveal decreased breath sounds in the bases, no wheezes or rhonchi. Cardiovascular reveals an irregularly irregular rhythm with borderline tachycardic rate. Abdomen is soft. Extremities reveal +1 edema. At this point, pulmonary edema appears to be better and she has improved from Wednesday when she was in [place] pulmonary edema. Unfortunately, with continued diuresis she has not improved much over the weekend and today. Prior to admission she was on 2 L of oxygen and has been needing 5 L or more the majority of the time this weekend and today. She is not tolerating BiPAP, which makes treatment of her COPD more difficult because of her CO2 retention. I talked with ULYSSES Lindsey for [facility]. I discussed with him that the patient 's pulmonary and cardiac status is worse than her baseline and her improvement has plateaued. I discussed with him options including transferring to inpatient care in [place] for more aggressive care of her cardiopulmonary issues with her plate shear operator and it consulting director, versus if the family does not want to be aggressive we can continue current nonaggressive cardiopulmonary care in [facility] while we try to improve her psychiatric issues, versus consideration for hospice. César has discussed these issues with Dr. Husain and they plan to discuss options with the family. Psychiatric -Dr. Husain's noted reviewed: HS doses of Mirtazipine and Zyprexa doses increased 01/26/[address] Husain yesterday and he and César, clinical social media marketing analyst, had spoken with family and they wanted to have a family meeting today and decide on level of care. Today, they have decided to wait and have the meeting tomorrow. Family is aware that continuous monitoring of blood pressure, heart rate and oxygenation is very difficult in the [facility] and at this time they went the patient to continue to stay in [facility]. At this time, the patient appears to be doing about the same as yesterday. She appears in no distress. On exam she is tachycardic with borderline low oxygenation on 4 L. She does have JVD. We'll give an extra dose of Cardizem 30 mg by mouth now immediate release. Will give Bumex 1 mg IV 1. We'll repeat a BMP now. Repeat BMP tomorrow. May need to increase Cardizem CD tomorrow versus consider adding beta sarah. 01/27/17 10:05 Acute on chronic hypoxic respiratory failure, diastolic CHF, pulmonary edema, pleural effusion, and A-fib -improving -O2 requirements slowly improving - on 4L this am -continue BiPAP HS, as pt tolerates -A-fib rates typically <120 while on cardizem; but at times it increases to 130- 140. Received an extra dose of cardizem last night. Will increase daily cardizem dose to 240 mg daily. -Dr. Booth' note reviewed - could consider restarting carvedilol if HR or BP becomes an issue. He prefers to keep her on the dry side. Repeat thoracentesis is not recommended per pulmonology. -routine diuretic is Lasix 60 mg daily; she may need additional dose of diuretic in the afternoon. Hypernatremia -Na up to 147 -may need to tolerate higher sodium levels given her tenuous fluid status Expect family meeting today to discuss goals of care -looking for clarification on aggressive vs. conservative treatment of cardiac issues - if they wish to pursue aggressive treatment we may need to transfer back to [place]. -Also would like opinion on resuming carvedilol. I did discuss the patient with her plate shear operator Dr. Booth. He recommended obtaining an echocardiogram to see how her ejection fraction is doing at this time. He recommended continued diuresis. He stated if ejection fraction is okay , could consider adding low-dose Coreg to help with rate control. He stated another option would be to start amiodarone. I asked him whether the patient would benefit from transfer to [place] for further cardiology care and he stated he didn't think there was much different that they continue their van here and treatment would be palliative. I later had a family meeting with the patient's daughter, granddaughter, case liner and respiratory therapists. I discussed with them how the patient is doing medically. Overall, she had pulmonary edema requiring increased oxygen needs on Wednesday that improved with IV diuretics and BiPAP. Prior to admission she was chronically on 2 L of oxygen and using BiPAP at night. Currently she is needing 4-5 L of oxygen and using BiPAP at night. She is not back to her baseline, but has improved since Wednesday and Wednesday. I discussed with them Dr. Booth's recommendation for echocardiogram and they were okay with this. We also discussed option of going to [place], which would be the most aggressive treatment of her cardiac issues versus admission to acute care so we can concentrate more on her cardiac issues and place her on continuous monitoring, versus continuing [facility] with frequent vital signs testing and continue to treat for CHF and A. fib with borderline rapid ventricular response. The patient's daughter stated that she would be talking with her brothers and then making a decision. From a psychiatric standpoint, I think the patient would do better staying in [facility] until her psychiatrist felt that she had stabilized. Today, I will order an echocardiogram. Will decrease fluid restriction to 1.2 L. Will discontinue prednisone. The patient's daughter did state that she did have pulmonary function testing with Dr. Aranda in the fall of 2015 and was told she only had moderate COPD at that time. 01/28/17 10:56 Acute on chronic hypoxic respiratory failure, diastolic CHF, pulmonary edema, pleural effusion, and A-fib -improving -O2 requirements slowly improving, but still above baseline -continue BiPAP HS, as pt tolerates -A-fib rates typically <120 while on cardizem; but at times it increases to 130- 140. Daily cardizem dose increased to 240 mg daily. -Dr. Chavez spoke with Dr. Booth: -echo ordered to f/u on EF -if EF ok, could add low-dose Coreg to assist with rate control -continue diuresis -unlikely that more aggressive treatment at [place] would provide any greater benefit; recommends palliative support -routine diuretic is Lasix 60 mg daily; she may need additional dose of diuretic in the afternoon. Monitor closely. Weight has been stable x3 days. -fluid restriction of 1.2 L Hypernatremia -Na improved to 145 -may need to tolerate higher sodium levels given her tenuous fluid status Expect family meeting today to discuss goals of care -looking for clarification on aggressive vs. conservative treatment of cardiac issues <Matthew Culver - Last Filed: 01/28/17 14:21> Objective Vital signs: Temp Pulse Resp BP Pulse Ox 97.8 F 129 H 14 153/97 H 98 01/28/17 08:00 01/28/17 08:00 01/28/17 13:20 01/28/17 08:00 01/27/17 21:00 Results - Labs CBC & Chem 7: 01/24/17 00:56 01/28/17 04:52 - ABG Interpretation ABG results: 01/22/17 01/23/17 01/24/17 10:16 18:34 00:59 ABG pH 7.300 L 7.310 L ABG pCO2 63 H* 69 H* ABG pO2 49 L 80 ABG HCO3 31 H 35 H ABG Total CO2 32.9 H 36.8 H ABG O2 Saturation 80.0 L 95.0 ABG Base Excess 3.0 H 6.3 H VBG pH 7.380 VBG pCO2 54 H VBG pO2 73 H VBG HCO3 32 H VBG Total CO2 33.6 VBG O2 Saturation 94.0 VBG Base Excess 5.4 H Assessment and Plan (1) Hx of pleural effusion Current visit: Yes Status: Acute (2) Coronary artery disease Current visit: Yes Status: Acute (3) A-fib Current visit: Yes Status: Acute (4) Chronic anticoagulation Current visit: Yes Status: Acute (5) Diastolic heart failure Current visit: Yes Status: Acute (6) Anemia Current visit: Yes Status: Acute (7) Mitral regurgitation Current visit: Yes Status: Acute (8) HTN (hypertension) Current visit: Yes Status: Acute (9) Respiratory failure Current visit: Yes Status: Acute (10) Pulmonary hypertension Current visit: Yes Status: Chronic 01/28/17 14:13 Secondary to COPD Assessment and Plan: Have independently interviewed and examined pt. Chart reviewed. Case discussed with my EGG CANDLER. Above care plan developed with my supervision; agree with above. Doing okay. Breathing not feeling too short, put O2 needs above baseline. No pain with breathing. Slight cough-no sputum. Denies chest pressure or pain. Eating well. No nausea or ab pain. Frustrated about memory problems. Frustrated about needing 'psych' medications. Lungs: decreased, bibasilar blunting. No distress with O2. CV: irregular AB: soft nt/nd EXT: +2 edema MSE: awake alert Plan: Will decrease potassium to 20mEq once a day as serum potassium level increasing. Continue Lasix/Diamox. Continue Cardizem, adding low dose Coreg - EF preserved; significant pulmonary HTN noted. Monitor lab due to diuretics. Sepsis Assessment - Focused Exam Vital Signs Temp Pulse Resp BP 01/28/17 13:20 14 01/28/17 09:02 16 01/28/17 08:00 97.8 F 129 H 24 153/97 H Hospital Course Summary Disclaimer: The visit summary below is not to be considered part of the above Progress Note.
[2017-01-28] MEDS: CARVEDILOL 3.125 MG TABLET PO SCH (17:30)
[2017-01-28] MEDS: MELATONIN 1 MG TABLET PO SCH (20:48)
[2017-01-28] MEDS: OLANZapine 5 MG TABLET PO SCH (21:02)
[2017-01-28] MEDS: MIRTAZAPINE 15 MG TABLET PO SCH (21:02)
--- NOTE | 2017-01-28 22:01 | Neuropsych Progress Note ---
[facility] Subjective Date: 01/28/17 - Sujective/Severity of Illness Medications: Acetaminophen (Tylenol) 650 mg PO Q4H PRN PRN Reason: Pain Albuterol/Ipratropium (Duoneb) 3 ml IH BID [facility] Last Admin: 01/28/17 13:50 Dose: Not Given Albuterol/Ipratropium (Duoneb) 3 ml IH Q2H PRN PRN Reason: Shortness of air Last Admin: 01/16/17 15:14 Dose: 3 ml Albuterol/Ipratropium (Duoneb) 3 ml IH RTQID [facility] Last Admin: 01/28/17 20:35 Dose: 3 ml Apixaban (Eliquis) 2.5 mg PO BID [facility] Last Admin: 01/28/17 20:47 Dose: 2.5 mg Aspirin (Ecotrin) 81 mg PO DAILY [facility] Last Admin: 01/28/17 08:26 Dose: 81 mg Benzonatate (Tessalon Perles) 100 mg PO BID [facility] Last Admin: 01/28/17 20:49 Dose: 100 mg Bisacodyl (Dulcolax) 10 mg RECTALLY DAILY PRN PRN Reason: Constipation Budesonide (Pulmicort Inhalation) 0.5 mg AEROSOL RTBID [facility] Last Admin: 01/28/17 20:35 Dose: 0.5 mg Carvedilol (Coreg) 3.125 mg PO BIDWM [facility] Last Admin: 01/28/17 17:30 Dose: 3.125 mg Cholecalciferol (Vitamin D-3) 1,000 unit PO DAILY [facility] Last Admin: 01/28/17 08:25 Dose: 1,000 unit Diltiazem HCl (Cardizem Cd) 240 mg PO DAILY [facility] Last Admin: 01/28/17 08:24 Dose: 240 mg Docusate Sodium (Colace) 100 mg PO BID [facility] Last Admin: 01/28/17 20:47 Dose: 100 mg Ferrous Sulfate (Feosol) 324 mg PO BIDWM [facility] Last Admin: 01/28/17 17:30 Dose: 324 mg Furosemide (Lasix) 60 mg PO DAILY [facility] Last Admin: 01/28/17 08:27 Dose: 60 mg Furosemide (Lasix) 40 mg PO 1400 [facility] Last Admin: 01/28/17 14:59 Dose: 40 mg Haloperidol (Haldol) 0.5 mg PO Q6H PRN PRN Reason: Extreme agitation Haloperidol Lactate (Haldol) 0.5 mg IM Q6H PRN PRN Reason: Extreme agitation Lorazepam (Ativan) 0.5 mg PO Q6H PRN PRN Reason: Extreme agitation Last Admin: 01/23/17 20:35 Dose: 0.5 mg Lorazepam (Ativan Inj) 0.5 mg IM Q6H PRN PRN Reason: Extreme agitation Lorazepam (Ativan Intensol) 0.5 mg SL Q6H PRN Last Admin: 01/26/17 19:39 Dose: 0.5 mg Magnesium Hydroxide (Mom) 30 ml PO PRN PRN PRN Reason: Constipation Melatonin (Melatonin) 3 mg PO 2100 [facility] Last Admin: 01/28/17 20:48 Dose: 3 mg Mirtazapine (Remeron) 22.5 mg PO HS [facility] Last Admin: 01/28/17 21:02 Dose: 22.5 mg Olanzapine (Zyprexa) 7.5 mg PO HS [facility] Last Admin: 01/28/17 21:02 Dose: 7.5 mg Omeprazole (Prilosec) 20 mg PO ACB [facility] Last Admin: 01/28/17 08:22 Dose: 20 mg Polyethylene Glycol (Miralax) 17 gm PO DAILY [facility] Last Admin: 01/28/17 08:26 Dose: 17 gm Potassium Chloride (K-Dur) 20 meq PO WB [facility] Prednisone (Deltasone) 10 mg PO WB [facility] Stop: 01/29/17 06:00 Last Admin: 01/28/17 08:23 Dose: 10 mg Sodium Chloride (Iv Flush) 10 - 80 ml IVF PRN PRN PRN Reason: Flushing Last Admin: 01/28/17 00:15 Dose: 10 ml Trolamine Salicylate (Aspercreme) 1 applic TOP Q8H PRN PRN Reason: Pain Subjective: Patient seen and chart reviewed. Case discussed with treatment team. On interview, patient is very pleasant and cooperative. She socializes with other women and is very complimentary towards them, seems to understand their cognitive changes and be respectful and caring towards them. She describes her own mood as good and does not bring up any thoughts that may be construed as delusional today. Patient denies any SI, HI or AVH. Patient denies any adverse side effects related to psychotropic medications. Nursing staff report patient continues to focus on fluid restrictions and diet. She is adherent with meds. She is argumentative with certain staff and this seems to be intentional behavior as she does well with unit assembler, physicians , etc. At times will threaten to throw a fit prior to doing it. Patient had difficulty sleeping all night. Psychotropic PRNs required in the past 24 hours: none. Both myself and unit assembler had an in-depth conversation with patient's daughter re: goals of care. Recommended behavioral management whenever possible to minimize AE related to higher med doses. Discussed that much of behavior may be intentional and patient has some control as she does very well with certain staff. Discussed disturbance of sleep cycle as part of delirium and that delusions have decreased in frequency/intensity but are likely part of delirium as well. Discussed that best treatment for delirium is medical treatment of underlying health problems. She agrees to discuss with family and make decision re: care and possible transfer tomorrow. Start Time: 16:00 Stop Time: 16:20 Mental Status Exam Vitals: Last Vital Signs Temp 99.1 F 01/28/17 20:19 Pulse 101 H 01/28/17 20:19 Resp 24 01/28/17 20:35 BP 140/83 H 01/28/17 20:19 Pulse Ox 97 01/28/17 20:35 Height: 1.47 m Weight: 51.3 kg - Mental Status Exam Muscle Strength/Tone: Normal Dressing: Casual Grooming: Good Attitude: Cooperative (on interview, can be argumentative with other staff) Motor Activity: Retardation Eye Contact: Good Speech: Normal Volume: Normal Rhythm: Appropriate Rhythm Orientation: Oriented to person, Oriented to place Mood: Irritable (at times, but has been quite pleasant w me.) Rate of Thoughts: Delayed Thought Organization: Organized Associations: Intact Abstract Reasoning: Poor abstract reasoning Thought Content: Delusions (decreased in frequency, seem to be manageable and nondistressing currently) Perception/Psychotic: Hx psychosis, not current Language: Naming Intact Fund of Knowledge: Poor fund of knowledge Memory: Poor-recent Suicidal Ideation: Denies Homicidal Ideation: Denies Insight: Limited Judgement: Limited Impulse Control: Fair (Believe much of behaviora is intentional rather than issue with impulse control) - Laboratory Result Diagrams: 01/24/17 00:56 01/28/17 04:52 Laboratory Results - last 24 hr 01/28/17 04:52 Turbidity < 20 Sodium 145 H Potassium 4.9 Chloride 100 Carbon Dioxide 37 H Anion Gap 8 BUN 35.0 H Creatinine 0.9 GFR Calculation 59 BUN/Creatinine Ratio 39 H Glucose 106 Calculated Osmolality 287 H Calcium 8.8 D Icterus Index < 2 Specimen Hemolysis < 15 Assessment and Plan (1) Delirium due to multiple etiologies Current visit: Yes Status: Acute (2) Major neurocognitive disorder Problem details: With behavioral disturbance Current visit: Yes Status: Acute (3) A-fib Current visit: Yes Status: Acute (4) Anemia Current visit: Yes Status: Acute (5) Chronic anticoagulation Current visit: Yes Status: Acute (6) Coronary artery disease Current visit: Yes Status: Acute (7) Diastolic heart failure Current visit: Yes Status: Acute (8) HTN (hypertension) Current visit: Yes Status: Acute (9) Hx of pleural effusion Current visit: Yes Status: Acute (10) Mitral regurgitation Current visit: Yes Status: Acute (11) Respiratory failure Current visit: Yes Status: Acute Spent significant amount of time discussing symptoms, diagnosis, treatment recommendations from psychiatric standpoint in addition to family meeting yesterday. Daughter and family plan to make decision on 01/28 regarding transfer of care. Continue current medications for the time being.
--- NOTE | 2017-01-28 22:13 | Discharge Summary ---
Discharge Plan - Med Rec/Dispo Additional Instructions: Recommend outpatient psychiatric follow-up at time of discharge. If patient is not in hospital and there are concerns she is a danger to self/others, please call 911 or go to ED. Recommended patient not have access to guns/weapons or manage her own medications (Rx or [id number]). Prescriptions: New Mirtazapine [Remeron] 22.5 mg PO HS #45 tab OLANZapine [Zyprexa] 7.5 mg PO HS #45 tab Continue Melatonin 3 mg PO HS #0 Discontinued Quetiapine [Seroquel] 25 mg PO HS Quetiapine [Seroquel] 12.5 mg PO BID Quetiapine [Seroquel] 12.5 mg PO DAILY No Action acetaZOLAMIDE [Acetazolamide] 500 mg PO DAILY dilTIAZem HCl [Diltiazem ER] 180 mg PO DAILY Furosemide [Lasix] 60 mg PO DAILY Omeprazole [Prilosec] 1 cap PO ACB Megestrol Oral Liq [Megace] 20 ml PO DAILY Polyethylene Glycol 3350 [Miralax] 17 gm PO DAILY Pantoprazole Sodium [Protonix] 40 mg PO DAILY Albuterol/Ipratropium [Duoneb] 3 ml IH BID Docusate Sodium [Colace] 100 mg PO BID Apixaban [Eliquis] 2.5 mg PO BID Cholecalciferol [Vitamin D-3] 1,000 unit PO DAILY Potassium Chloride 20 meq PO BID Benzonatate [Tessalon Perles] 100 mg PO BID Trolamine Salicylate 10% Cream [Aspercreme] 1 applic TOP Q8H PRN PRN Reason: Pain Albuterol/Ipratropium [Duoneb] 3 ml IH Q2H PRN PRN Reason: Shortness Of Air Acetaminophen 650 mg PO Q4H PRN PRN Reason: Pain Aspirin [Aspirin EC] 81 mg PO DAILY Ferrous Sulfate [Iron] 325 mg PO BID guaiFENesin [Mucinex] 600 mg PO BID Bisacodyl Supp [Dulcolax] 10 mg RECTALLY DAILY PRN PRN Reason: Constipation Milk of Magnesia [Mom] 30 ml PO PRN PRN PRN Reason: Constipation
--- NOTE | 2017-01-28 22:19 | Neuropsychiatric Disch Summary ---
Discharge Information Date of admission: 01/15/17 21:11 Attending Physician: Ju Mills MD Primary care physician: Jose R Fatima MD Consults: 01/15/17 22:18 Case Management Consult [CONS] Routine Reason For Exam: H&P and medical management Physician Consult [CONS] Routine Consulting Provider: Eliezer Pace Reason For Exam: H&P and medical management Ordering Provider has Notified Garnett Machine Operator: No - Discharge Diagnosis (1) Delirium due to multiple etiologies Status: Acute (2) Major neurocognitive disorder Problem Details: With behavioral disturbance Status: Acute (3) A-fib Status: Chronic (4) Anemia Status: Acute (5) Chronic anticoagulation Status: Chronic (6) Coronary artery disease Status: Chronic (7) Diastolic heart failure Status: Acute (8) HTN (hypertension) Status: Chronic (9) Hx of pleural effusion Status: Acute (10) Mitral regurgitation Status: Chronic (11) Respiratory failure Status: Acute - Laboratory Labs: 01/24/17 00:56 01/28/17 04:52 Date of Admission: 01/15/17 21:11 History of Present Illness: HPI: 86 y/o CF with a hx of COPD and heart disease sent from a rehab facility for increasing confusion, agitation, impulsiveness and VH. Pt reportedly had surgery in November and then went back to the hospital in December for heart failure. At discharge pt was sent to a SNU but began to have the confusion and increase in behaviors. Nursing reports this AM the pt was alert and was asking about a psychiatrist because "my daughter needs help". Pt believed her daughter was being "brain washed" and appeared quiet delusional. On face to face with this card writer hand the pt was lethargic and would not open her eyes. Her speech was mumbled. PT was only oriented to self. She states she is here to "get better" but was not able to give me any other details. PSYCH ROS: Unable to obtain at this time due to the patients mental state. PT is confused and only oriented to self. Hospital Course Hospital course: The patient was admitted to [facility] and placed on safety and elopement precautions. See notable medication changes in regards to psychatric treatment below. Prior to all medication trials, the side effects, risk and benefits of all medications were discussed with the patient and/or medical DPOA (or guardian ). The patient tolerated medications well and without any side effects. After consulting with the medical team, patient was transferred to medical floor for further treatment. Held in-depth discussion with family that it would be difficult to fully treat psychiatric symptoms in light of delirium due to other medical problems. 01/16/17: Will continue home meds at this time. D/C Megase as family felt it made behaviors worse. We will continue to monitor. Review labs and imaging. Hospitalist to follow. 01/17/17: Will contact family for collateral. Consider antipsychotic with higher D2 Affinity. 01/18/17: Patient seems to be improving (fully oriented upon interview) from delirium but continuing to perseverate on delusions re: daughter. Increase Seroquel to 25mg PO BID, monitor for increased daytime sedation. Want to limit daytime naps and encourage sleep with BiPap use at night. 01/19/17: Monitor for improvement of delirium as medical issues improve. Seroquel 25mg PO BID seems helpful in reducing delusional thoughts - but need to monitor for daytime sedation, minimize daytime naps, encourage better sleep hygiene with use of Bipap at night. Encourage participation in activities and spending time out of room. Continue current care otherwise. 01/20/17: Increase HS Seroquel to 50mg PO q HS - to target restless sleep, help with delusions/irritability. Still wanting to minimize daytime sedation. 01/21/17: Patient's physical condition is improving. Unclear if Seroquel contributed to overnight insomnia/restlessness. After obtaining informed consent from daughter/DPOA today, will discontinue Seroquel and start Zyprexa 5mg PO q HS to target insomnia, delusional thoughts. May need slight dosage increase. Continue to monitor QTc. If patient continues to exhibit paradoxical reactions to sedative effects, consider alternate sleep medication such as trazodone. 01/22/17: Continue Zyprexa 5mg PO q HS to target sleep, delusions. Suggest staff minimize PRN Ativan use and employ behavioral management strategies for irritable/demanding behavior if possible. Monitor mood, behavior and response to treatment. 01/23/17: Add Mirtazapine 7.5mg PO q HS to further target sleep, mood, appetite. 01/24/17: Increase Mirtazapine to 15mg PO q HS. Increase Zyprexa to 7.5mg PO q HS. 01/25/17: Discussed w RN, team, elaine, and Dr. Chavez. Pt expressed to me she would rather not be aggressive in terms of more medical treatment. Asked team to involve family in decision with her as well. I will hold off on further psych med increases at this point for fear of worstening cardiopulmonary functioning. 01/26/17: increase mirtazapine to 22.5mg po q hs. team to get family to get involved in assisting pt with decision as to whether they would like to be more aggressive from cardiopulmonary standpoint or not. 01/27/17: Will make further management decisions after reviewing family meeting with RODRI Squires. Much of patient's behavior on unit seems to be intentional , would be better managed with behavioral modifications than further med increases given physical condition. 01/28/17: Spent significant amount of time discussing symptoms, diagnosis, treatment recommendations from psychiatric standpoint in addition to family meeting yesterday. Daughter and family plan to make decision on 01/28 regarding transfer of care. Continue current medications for the time being. Management of medical comorbidities per hospitalist: 01/16/17 09:56 Agree with admission to [facility] for further psychiatric evaluation and treatment. Continue on chronic oxygen at 4 liters by nasal cannula as well as CPAP at night. Continue with scheduled DuoNeb breathing treatments twice a day Chronic cardiac medications including Lasix 60 milligrams daily, Cardizem 180 milligrams daily Continue chronic anticoagulation, Eliquis 2.5 milligrams twice a day 01/19/17 09:51 CHF -CXR on 01/17 showed moderate CHF with pleural effusions. Crackles heard today on exam and 1-2+ BLE edema. Repeat CXR now. -may need to add an extra dose of Lasix - currently takes 60 mg daily. -weight is up about 0.5 kg. -continue oxygen and BiPAP HS Anemia, macrocytic -Hgb continues to trend down. -B12, ferritin, folate - normal; will check iron -check stool for occult blood Leukocytosis -resolved -repeat CBC in am Hypernatremia -mild, monitor closely especially since she's on Lasix -repeat BMP in am CKD -renal function improved with cr down to 1.1 A-fib -on Eliquis -rate fairly well controlled on diltiazem Behavioral disturbance -Psych notes reviewed. Seroquel increased. 01/21/17 16:33 CHF -Weight slowly increasing - 51.1 kg -Breathing at baseline -JASON hose ordered -monitor fluid status closely Hypernatremia -increased to 147 -Lasix dose reduced Macrocytic anemia -iron level pending -stool for occult blood - neg -hgb increased to 8.8 Psych -HS seroquel increased 01/22/17 12:47 HF with acute hypoxic respiratory failure -hypoxic on 10L in the mid-80s. RT at bedside to place back on BiPAP. -ABG and stat CXR ordered. Check EKG and troponin. -Bumex 1 mg IV x1 now Pt improved on BiPAP - satting 100% Discussed with Dr. Chavez, who also evaluated the patient ABG showed resp acidosis - should improve with BiPAP CXR personally reviewed - severe pulm edema Labs reviewed - hypernatremia had improved 01/23/17 14:53 Pt. reports feeling a little better today. She is still very wheezy. Did not wear Bipap last night as she couldnt sleep. Weight is down about 1 lb since yesterday. Chart has been extensively reviewed. D/W Dr. Chavez as well. Will obtain CT of the chest to further evaluate effusions- may need repeat thoracentesis. Need to stop Diamox given her known resp. failure with acidosis. Increase Lasix to 60 mg AM, 40mg PM. Suspect a strong COPD component- given IM steroid now and then PO taper. May exacerbate irritability, but we need to get her breathing better. Repeat labs in AM. If no significant improvement, we may need to move to medical floor or transfer to [place] for continuation of care and Pulm assistance. Continue Duoneb- increase to QID. Add pulmicort. DC Mucinex due to reported SE. Daughter states that she could take liquid guiafenesin if needed. Extensive time spent on this patient in the review of the records, viewing images, D/W staff and Dr. Chavez (> 45 minutes). 01/23/2017-I reviewed this chart, the patient history, and the CIRCUIT DESIGNER's/PA's documented findings as above. We discussed and formulated the assessment and plan as above with the additions below.-Dr. Chavez The patient has been needing between 3 and 6 L of oxygen today. Apparently she was on 3 L for only a short period of time. Currently she is on 5 L of oxygen. She denies feeling short of breath and she denies any pain. She refused her BiPAP last night. Her O2 sat is somewhat labile and I think this is secondary to sacral monitor not picking up well with her A. fib. Heart rate has been improved from yesterday and is in the 90s to low 100s. She is requesting to be up walking more frequently. She is eating well. She does agree to use her BiPAP tonight. On exam the patient has decreased breath sounds in the bases with minimal crackles in the mid lung tamayo. No wheezing on my exam. Cardiovascular reveals a borderline tachycardic rate with an irregular rhythm. Abdomen is soft and nontender. Extremities reveal trace pretibial edema. Weight is down about half a kilogram since yesterday but is up overall about 2.3 kg since admission. Repeat chest x-ray this evening shows pulmonary edema and right pleural effusion. Pulmonary edema is improved on my read compared to yesterday. ABG shows pH of 7.31/PCO2 69/by mouth 2 of 80 with O2 sat of 95% on 5 L. Oxygenation is improved markedly compared to yesterday. She does have some increase in CO2 today which I think should improve with using her BiPAP. Will give 1 dose of Bumex now. Lasix was increased today. I did call and talk with the patient's daughter this evening. I did update her on the patient's condition which is a little better compared to yesterday. She has had significant difficulties with pulmonary edema and pleural effusion off and on for the past several months. I discussed options with the patient's daughter regarding the patient's care. At this time she would like to keep her in the hospital here and continue with current treatment and reevaluate tomorrow. If not improving tomorrow could discuss with the patient's finisher hot strip and consider transfer back to [place] versus continue to manage medically here. If she should worsen she will likely need transfer. 01/24/17 08:48 Acute on chronic resp failure -severe pulmonary edema is improving clinically and radiologically following diuresis with IV Bumex -continue with Lasix 60 mg in the am plus extra dose of 40 mg at 1400 -work on weaning oxygen - she's on 5L currently and I discussed with staff to wean this down to 2-3L if able -weight is trending down - cont to follow I&O -cancel CT chest -bicarb on BMP improving -cont steroid taper for suspected COPD exac. Hypernatremia -stable at 145 even with extra diuresis Psych -Mirtazapine added HS 01/25/17 09:50 Pulmonary edema -clinically improving -CXR this morning - continues to show B/L effusions (R>L) but edema appears improved on personal review -Lasix resumed at baseline dose of 60 mg daily -continue home O2, nocturnal BiPAP (as pt tolerates) and daily weights -hypernatremia is mild at 145 -other electrolytes have remained stable through extra diuresis 01/25/2017-I reviewed this chart, the patient history, and the CIRCUIT DESIGNER's/PA's documented findings as above. We discussed and formulated the assessment and plan as above with the additions below.-Dr. Chavez The patient was seen earlier today by my nurse practitioner as noted above. At that time she seemed to be doing okay. This afternoon, I spoke with the respiratory therapist who states that at one point today she was on 3-1/2 L and O2 sat was 99%. Chest x-ray today read by radiology showed a moderate right pleural effusion and a small left pleural effusion with atelectasis. I have reviewed her x-ray and I do agree her pulmonary edema appears better. When I came to see the patient this afternoon, she was lying in bed and mumbling stating she just wanted to sleep. She has been refusing BiPAP for the last several days and at most will only tolerated about 10 minutes. She is currently on 5 L of oxygen with O2 sat of 91% and heart rate ranging from 100 to 115. Lungs reveal decreased breath sounds in the bases, no wheezes or rhonchi. Cardiovascular reveals an irregularly irregular rhythm with borderline tachycardic rate. Abdomen is soft. Extremities reveal +1 edema. At this point, pulmonary edema appears to be better and she has improved from Wednesday when she was in florid pulmonary edema. Unfortunately, with continued diuresis she has not improved much over the weekend and today. Prior to admission she was on 2 L of oxygen and has been needing 5 L or more the majority of the time this weekend and today. She is not tolerating BiPAP, which makes treatment of her COPD more difficult because of her CO2 retention. I talked with ULYSSES Lindsey for [facility]. I discussed with him that the patient 's pulmonary and cardiac status is worse than her baseline and her improvement has plateaued. I discussed with him options including transferring to inpatient care in [place] for more aggressive care of her cardiopulmonary issues with her finisher hot strip and roller staker, versus if the family does not want to be aggressive we can continue current nonaggressive cardiopulmonary care in [facility] while we try to improve her psychiatric issues, versus consideration for hospice. César has discussed these issues with Dr. Husain and they plan to discuss options with the family. Psychiatric -Dr. Husain's noted reviewed: HS doses of Mirtazipine and Zyprexa doses increased 01/26/[address] Husain yesterday and he and César, clinical social insurance specialist, had spoken with family and they wanted to have a family meeting today and decide on level of care. Today, they have decided to wait and have the meeting tomorrow. Family is aware that continuous monitoring of blood pressure, heart rate and oxygenation is very difficult in the [facility] unit and at this time they went the patient to continue to stay in [facility]. At this time, the patient appears to be doing about the same as yesterday. She appears in no distress. On exam she is tachycardic with borderline low oxygenation on 4 L. She does have JVD. We'll give an extra dose of Cardizem 30 mg by mouth now immediate release. Will give Bumex 1 mg IV 1. We'll repeat a BMP now. Repeat BMP tomorrow. May need to increase Cardizem CD tomorrow versus consider adding beta sarah. 01/27/17 10:05 Acute on chronic hypoxic respiratory failure, diastolic CHF, pulmonary edema, pleural effusion, and A-fib -improving -O2 requirements slowly improving - on 4L this am -continue BiPAP HS, as pt tolerates -A-fib rates typically <120 while on cardizem; but at times it increases to 130- 140. Received an extra dose of cardizem last night. Will increase daily cardizem dose to 240 mg daily. -Dr. Booth' note reviewed - could consider restarting carvedilol if HR or BP becomes an issue. He prefers to keep her on the dry side. Repeat thoracentesis is not recommended per pulmonology. -routine diuretic is Lasix 60 mg daily; she may need additional dose of diuretic in the afternoon. Hypernatremia -Na up to 147 -may need to tolerate higher sodium levels given her tenuous fluid status Expect family meeting today to discuss goals of care -looking for clarification on aggressive vs. conservative treatment of cardiac issues - if they wish to pursue aggressive treatment we may need to transfer back to [place]. -Also would like opinion on resuming carvedilol. I did discuss the patient with her finisher hot strip Dr. Booth. He recommended obtaining an echocardiogram to see how her ejection fraction is doing at this time. He recommended continued diuresis. He stated if ejection fraction is okay , could consider adding low-dose Coreg to help with rate control. He stated another option would be to start amiodarone. I asked him whether the patient would benefit from transfer to [place] for further cardiology care and he stated he didn't think there was much different that they continue their van here and treatment would be palliative. I later had a family meeting with the patient's daughter, granddaughter, case advocate and respiratory therapists. I discussed with them how the patient is doing medically. Overall, she had pulmonary edema requiring increased oxygen needs on Wednesday that improved with IV diuretics and BiPAP. Prior to admission she was chronically on 2 L of oxygen and using BiPAP at night. Currently she is needing 4-5 L of oxygen and using BiPAP at night. She is not back to her baseline, but has improved since Wednesday and Wednesday. I discussed with them Dr. Booth's recommendation for echocardiogram and they were okay with this. We also discussed option of going to [place], which would be the most aggressive treatment of her cardiac issues versus admission to acute care so we can concentrate more on her cardiac issues and place her on continuous monitoring, versus continuing [facility] with frequent vital signs testing and continue to treat for CHF and A. fib with borderline rapid ventricular response. The patient's daughter stated that she would be talking with her brothers and then making a decision. From a psychiatric standpoint, I think the patient would do better staying in [facility] until her psychiatrist felt that she had stabilized. Today, I will order an echocardiogram. Will decrease fluid restriction to 1.2 L. Will discontinue prednisone. The patient's daughter did state that she did have pulmonary function testing with Dr. Aranda in the fall of 2015 and was told she only had moderate COPD at that time. 01/28/17 10:56 Acute on chronic hypoxic respiratory failure, diastolic CHF, pulmonary edema, pleural effusion, and A-fib -improving -O2 requirements slowly improving, but still above baseline -continue BiPAP HS, as pt tolerates -A-fib rates typically <120 while on cardizem; but at times it increases to 130- 140. Daily cardizem dose increased to 240 mg daily. -Dr. Chavez spoke with Dr. Booth: -echo ordered to f/u on EF -if EF ok, could add low-dose Coreg to assist with rate control -continue diuresis -unlikely that more aggressive treatment at [place] would provide any greater benefit; recommends palliative support -routine diuretic is Lasix 60 mg daily; she may need additional dose of diuretic in the afternoon. Monitor closely. Weight has been stable x3 days. -fluid restriction of 1.2 L Hypernatremia -Na improved to 145 -may need to tolerate higher sodium levels given her tenuous fluid status Expect family meeting today to discuss goals of care -looking for clarification on aggressive vs. conservative treatment of cardiac issues Discharge Plan - Med Rec/Dispo Referrals/Follow Up: Jose R Fatima MD [Family Provider] - (No follow up appts needed, pt going to acute care at [facility]. ) Additional Instructions: Discharge Diagnosis: Delirium, due to multiple etiologies Major Neurocognitive Disorder with Behavioral Disturbance Recommend outpatient psychiatric follow-up at time of discharge. If patient is not in hospital and there are concerns she is a danger to self/others, please call 911 or go to ED. Recommended patient not have access to guns/weapons or manage her own medications (Rx or [id number]). IN CASE OF PSYCHIATRIC EMERGENCY, CONTACT [employer] AT [phone] ( available 24 hrs daily.) Prescriptions: New Mirtazapine [Remeron] 22.5 mg PO HS #45 tab OLANZapine [Zyprexa] 7.5 mg PO HS #45 tab Continue Melatonin 3 mg PO HS #0 Discontinued Quetiapine [Seroquel] 25 mg PO HS Quetiapine [Seroquel] 12.5 mg PO BID Quetiapine [Seroquel] 12.5 mg PO DAILY No Action Furosemide [Lasix] 60 mg PO DAILY Omeprazole [Prilosec] 1 cap PO ACB Polyethylene Glycol 3350 [Miralax] 17 gm PO DAILY Albuterol/Ipratropium [Duoneb] 3 ml IH BID Docusate Sodium [Colace] 100 mg PO BID Apixaban [Eliquis] 2.5 mg PO BID Cholecalciferol [Vitamin D-3] 1,000 unit PO DAILY Potassium Chloride 20 meq PO BID Benzonatate [Tessalon Perles] 100 mg PO BID Trolamine Salicylate 10% Cream [Aspercreme] 1 applic TOP Q8H PRN PRN Reason: Pain Albuterol/Ipratropium [Duoneb] 3 ml IH Q2H PRN PRN Reason: Shortness Of Air Acetaminophen 650 mg PO Q4H PRN PRN Reason: Pain dilTIAZem HCl [Diltiazem 24Hr Cd] 240 mg PO DAILY Budesonide Inhalation [Pulmicort Inhalation] 0.5 mg IH BID Aspirin [Aspirin EC] 81 mg PO DAILY Ferrous Sulfate [Iron] 325 mg PO BID guaiFENesin [Mucinex] 600 mg PO BID Bisacodyl Supp [Dulcolax] 10 mg RECTALLY DAILY PRN PRN Reason: Constipation Milk of Magnesia [Mom] 30 ml PO PRN PRN PRN Reason: Constipation Furosemide [Lasix] 1 tab PO DAILY Carvedilol [Coreg] 1 tab PO BIDWM - Disposition 02 To [facility]
[2017-01-29] MEDS: BUDESONIDE INH.SOLN 0.5mg/2ml NEB AEROSOL SCH (07:30)
[2017-01-29] MEDS: IPRATROPIUM/ALBUTEROL 2.5mg-0.5mg/3ml NEB IH SCH ×5 (07:30→16:10)
[2017-01-29] MEDS: OMEPRAZOLE 20 MG CAPSULE PO SCH (09:15)
[2017-01-29] MEDS: FERROUS SULFATE 324 MG TABLET PO SCH (09:15)
[2017-01-29] MEDS: BENZONATATE 100 MG CAPSULE PO SCH (09:17)
[2017-01-29] MEDS: ASPIRIN *EC* 81 MG TABLET PO SCH (09:18)
[2017-01-29] MEDS: APIXABAN 5 MG TABLET PO SCH (09:18)
[2017-01-29] MEDS: CARVEDILOL 3.125 MG TABLET PO SCH (09:19)
[2017-01-29] MEDS: FUROSEMIDE 40 MG TABLET PO SCH ×2 (09:41→14:36)
[2017-01-29] MEDS: DOCUSATE SODIUM 100 MG CAPSULE PO SCH (10:29)
[2017-01-29] MEDS: POLYETHYL GLYCOL 3350 17gm PACKET PO SCH ×2 (10:29→10:31)
--- NOTE | 2017-01-29 15:53 | XRay Report ---
INDICATION: pleural effusion, chf PROCEDURE: CHEST 2-VIEWS UPRIGHT (PA & LAT) Encounter: Initial COMPARISON: January 25, 2017 FINDINGS: Moderate right pleural effusion is not significantly changed. Small left pleural effusion is slightly improved. Continued bilateral lower lobe consolidation right greater than left. Upper lung tamayo are unchanged. No pneumothorax. Cardiac silhouette remains moderately enlarged. Mediastinal contours are stable. Pulmonary vascular congestion has improved. Impression: Slowly improving pulmonary edema with slight decrease in left effusion. .
== END 2017-01-29 15:45 | disposition short-term general hospital (02) | DRG 880 ==
LOC: ED 18:45 → GEN 21:11
PROVIDERS: ADMIT Psychiatry & Neurology Psychiatry; ATTEND Psychiatry & Neurology Psychiatry

== ENCOUNTER 2017-01-29 13:35 | Inpatient (IN) ==
[2017-01-29] MEDS ORDERED: ACETAMINOPHEN 325 MG TABLET PO PRN (16:32)
[2017-01-29] MEDS ORDERED: BISACODYL 10 MG SUPPOSITORY RECTALLY PRN (16:32)
[2017-01-29] MEDS ORDERED: ALBUTEROL/IPRATROPIUM 2.5mg-0.5mg/3ml NEB IH PRN (16:32)
[2017-01-29] MEDS ORDERED: ONDANSETRON 4 MG/2 ML INJECTION IVP PRN (16:35)
[2017-01-29 16:37] VITALS: BMI 23.1
--- NOTE | 2017-01-29 16:49 | History & Physical Report ---
<RosalbaReanna Mary - Last Filed: 01/29/17 16:51> History of Present Illness Date: 01/29/17 Chief complaint: Shortness of breath HPI: Pam Baker is an 86-year-old woman who was transferred to acute medical from [facility] for ongoing treatment of her pleural effusion and acute on chronic respiratory failure. She was initially admitted to [facility] from a rehabilitation facility on for increased confusion, agitation and impulsiveness and visual hallucinations. She has a history of mitraclip x2 on 11/27/2016 followed by acute admission for acute CHF in December, at which time she underwent right thoracentesis on 12/28/[address] Witt. Head Strength And Conditioning Coach, Dr. Booth. While she was in [facility]. The hospitalist service was consulted for medical management. She also has a history of A. fib and is anticoagulated on Eliquis. Chest x-ray on 01/19/17 showed moderate CHF with pleural effusion. Her weight began to slowly increase and by 01/22/17. She was requiring 10 L of oxygen and BiPAP support during the day (typically only used at night, when she tolerated it). She was diuresed with IV Bumex and over the following few days, her respiratory status improved. We also felt that she was possibly having COPD exacerbation and she was started on a short course of oral steroids. Serial ABGs continued to show improvement in respiratory acidosis. An extra dose of Lasix was added in the afternoon. We also increased her dose of Cardizem to 240 mg daily because her A. fib rate was frequently increasing above 120, and prior to discharge low-dose Coreg was also started. In reviewing records from [facility] and in discussion with Dr. Booth, care at this point is largely palliative in nature and additional thoracentesis would create additional risk and were not recommended. Dr. Booth also reported that likely she will need to be kept on the dry side. Labs showed an increase in bicarbonate and she was started on Diamox. An echocardiogram was done, which showed a preserved EF, but significant pulmonary hypertension. On 01/29/17, she was ready for discharge from [facility], however, her respiratory status took a turn for the worse. Staff report that she was "rashid" in color. She was on 4 L of oxygen earlier in the day, but her sats were in the mid 80s, prompting them to increase it to 5 L. She was no longer able to complete full sentences and was only able to speak a few words at a time without pausing for breath. She was very drowsy and not as alert, which was a change in her mentation. Following discussions with the hospitalist physician and the patient's daughter, Rylee, we decided to continue medical treatment at [facility]. She was admitted to observation status. In repeat assessment later in the day, she was more alert and her color had improved. She was still having some conversational dyspnea but her mental status was better. Review of Systems All systems: reviewed and no additional remarkable complaints except as stated - Cardiovascular Cardiovascular: Present: dyspnea on exertion, orthopnea Vascular: Present: pedal edema - Respiratory Respiratory: Present: dyspnea, wheezing - Psychiatric Psychiatric: Present: as per HPI PFSH Transient Ischemic Attacks BLIND R EYE Cardiac Arrhythmia Congestive Heart Failure - diastolic Chronic A-fib, anticoagulated on Eliquis HTN HLD Chronic Obstructive Pulmonary Disease (COPD) Chronic oxygen use Hiatal Hernia SLOW ESOPHAGEAL MOTILITY Osteoarthritis HEP B 1979 I will see her so Surgical History: Bilateral femur fracture repair. cholecystectomy. total hysterectomy. breast lumpectomy. mitraclip x2 on 11/27/2016. right 5th finger surgery. Right thoracentesis-12/28/16 Dr. Witt - Social History Smoking status: Former smoker Substance use type: does not use Alcohol intake frequency: does not drink Social history: PCP - Heather Schwab Medications Home Medications Medication Instructions Recorded Confirmed Type Acetaminophen 650 mg PO Q4H PRN 01/15/17 01/29/17 History Albuterol/Ipratropium [Duoneb] 3 ml IH BID 01/15/17 01/29/17 History Albuterol/Ipratropium [Duoneb] 3 ml IH Q2H PRN 01/15/17 01/29/17 History Apixaban [Eliquis] 2.5 mg PO BID 01/15/17 01/29/17 History Aspirin [Aspirin EC] 81 mg PO DAILY 01/15/17 01/29/17 History Benzonatate [Tessalon Perles] 100 mg PO BID 01/15/17 01/29/17 History Bisacodyl Supp [Dulcolax] 10 mg RECTALLY DAILY PRN 01/15/17 01/29/17 History Cholecalciferol [Vitamin D-3] 1,000 unit PO DAILY 01/15/17 01/29/17 History Docusate Sodium [Colace] 100 mg PO BID 01/15/17 01/29/17 History Ferrous Sulfate [Iron] 325 mg PO BID 01/15/17 01/29/17 History Furosemide [Lasix] 60 mg PO DAILY 01/15/17 01/29/17 History Milk of Magnesia [Mom] 30 ml PO PRN PRN 01/15/17 01/29/17 History Omeprazole [Prilosec] 1 cap PO ACB 01/15/17 01/29/17 History Polyethylene Glycol 3350 [Miralax] 17 gm PO DAILY 01/15/17 01/29/17 History Potassium Chloride 20 meq PO BID 01/15/17 01/29/17 History Trolamine Salicylate 10% Cream 1 applic TOP Q8H PRN 01/15/17 01/29/17 History [Aspercreme] guaiFENesin [Mucinex] 600 mg PO BID 01/15/17 01/29/17 History Budesonide Inhalation [Pulmicort 0.5 mg IH BID 01/29/17 01/29/17 History Inhalation] Carvedilol [Coreg] 1 tab PO BIDWM 01/29/17 01/29/17 History Furosemide [Lasix] 1 tab PO DAILY 01/29/17 01/29/17 History dilTIAZem HCl [Diltiazem 24Hr Cd] 240 mg PO DAILY 01/29/17 01/29/17 History Allergies Allergy/AdvReac Type Severity Reaction Status Date / Time No Known Drug Allergies Allergy Verified 01/29/17 13:10 No Known Adverse Drug AdvReac Verified 01/29/17 13:11 Reactions Exam Vital Signs: Temp Pulse Resp BP Pulse Ox 96.7 F L 82 20 129/82 95 01/29/17 16:08 01/29/17 16:08 01/29/17 16:40 01/29/17 16:08 01/29/17 16:40 Height: 1.5 m Weight: 52 kg Body Mass Index: 23.1 - Constitutional Present: mild distress, well developed, thin - Routine HEENT Exam ENT: Present: mucous membranes moist, oropharynx clear - Routine Neck Exam Present: supple, JVD - Routine Respiratory Exam Present: decreased breath sounds - Routine Cardiovascular Exam Present: irregularly irregular - Routine Abdominal Exam Present: soft, normoactive bowel sounds, non distended, non tender - Routine Extremities Exam Present: edema (2+ b/l), pulses intact - Routine Back/Spine/Pelvis Exam Back/Spine: Present: kyphosis - Routine Skin Exam Present: intact, warm - Routine Neurological Exam Present: oriented X3. Absent: alert (drowsy - improved by the afternoon) - Routine Psychiatric Exam Present: normal affect (. He), normal thought process Assessment and Plan (1) Respiratory failure Current visit: No Status: Acute (2) A-fib Current visit: No Status: Acute (3) Anemia Current visit: No Status: Acute (4) Chronic anticoagulation Current visit: No Status: Acute (5) Coronary artery disease Current visit: No Status: Acute (6) Diastolic heart failure Current visit: No Status: Acute (7) HTN (hypertension) Current visit: No Status: Acute (8) Hx of pleural effusion Current visit: No Status: Acute (9) Pulmonary hypertension Current visit: No Status: Chronic (10) COPD (chronic obstructive pulmonary disease) Current visit: Yes Status: Acute DVT Prophylaxis: other (Eliquis) Resuscitation Status: Do Not Resuscitate Assessment and Plan: Admit to observation status under the hospitalist service. Discussed with Pam's daughter, Rylee, - she's a weaver needle loom and is requesting to give her iron mid-morning and mid-afternoon with a drink containing Vit C and a small snack. She would also like Dr. Phillips to see her, which is reasonable given her need for frequent diuresis. Acute on chronic respiratory failure: She has increasing bicarbonate and was started on Diamox. Currently she is on Lasix 60 mg in the morning and 40 mg in the afternoon. Prior to admission she was on the Lasix to 60 mg in the morning. Dr. Booth is recommending to keep her on the dry side. She has a chronic right pleural effusion and is status post thoracentesis in December. She is still requiring increased oxygen from her baseline. She has been using BiPAP every night, at least, as she can tolerate. She also has severe pulmonary hypertension and diastolic CHF. Will repeat labs tomorrow morning to follow up on chemistries, and bicarbonate level. Chest x-ray was repeated today - fluid status is improved but she has persistent right pleural effusion. Discussed with Dr. Phillips and with Dr. Culver. Discharge plans: Pam is looking into area [facility] care facilities. Sepsis Assessment - Evaluation Sepsis screening result: No Definite Risk - Focused Exam Vital Signs Temp Pulse Resp BP Pulse Ox 01/29/17 16:40 20 95 01/29/17 16:08 96.7 F L 82 18 129/82 99 Hospital Course Summary Disclaimer: The visit summary below is not to be considered part of the above Progress Note. Hospital Course: 01/29/17 17:30 Admit to observation status under the hospitalist service. Discussed with Pam's daughter, Rylee, - she's a weaver needle loom and is requesting to give her iron mid-morning and mid-afternoon with a drink containing Vit C and a small snack. She would also like Dr. Phililps to see her, which is reasonable given her need for frequent diuresis. Acute on chronic respiratory failure: She has increasing bicarbonate and was started on Diamox. Currently she is on Lasix 60 mg in the morning and 40 mg in the afternoon. Prior to admission she was on the Lasix to 60 mg in the morning. Dr. Booth is recommending to keep her on the dry side. She has a chronic right pleural effusion and is status post thoracentesis in December. She is still requiring increased oxygen from her baseline. She has been using BiPAP every night, at least, as she can tolerate. She also has severe pulmonary hypertension and diastolic CHF. Will repeat labs tomorrow morning to follow up on chemistries, and bicarbonate level. Chest x-ray was repeated today - fluid status is improved but she has persistent right pleural effusion. Discussed with Dr. Phillips and with Dr. Culver. Discharge plans: Pam is looking into [facility] care facilities. <Matthew Culver - Last Filed: 01/29/17 19:38> History of Present Illness Date: 01/29/17 [facility] Patient Stated Medical History Transient Ischemic Attacks ( INCREASING CONFUSION TIA) Cataracts Yes: REPAIRED Dental Problems Yes: implants Other HEENT Yes: BLIND L EYE Cardiac Arrhythmia Yes Congestive Heart Failure Yes Chronic Obstructive Pulmonary Yes Disease (COPD) Hiatal Hernia Yes Other GI Yes: SLOW ESOPHAGEAL MOTILITY Other Hematologic Yes: hep B Osteoarthritis Yes Other Infectious Yes: HEP B 1980 Blood Transfusions Yes: have had Exam Vital Signs: Temp Pulse Resp BP Pulse Ox 96.7 F L 82 20 129/82 95 01/29/17 16:08 01/29/17 16:08 01/29/17 16:40 01/29/17 16:08 01/29/17 16:40 Height: 1.5 m Weight: 52 kg Assessment and Plan (1) Hx of pleural effusion Current visit: No Status: Acute (2) Coronary artery disease Current visit: No Status: Acute (3) A-fib Current visit: No Status: Acute (4) Chronic anticoagulation Current visit: No Status: Acute (5) Diastolic heart failure Current visit: No Status: Acute (6) Anemia Current visit: No Status: Acute (7) HTN (hypertension) Current visit: No Status: Acute (8) Respiratory failure Current visit: No Status: Acute (9) Pulmonary hypertension Current visit: No Status: Chronic (10) COPD (chronic obstructive pulmonary disease) Current visit: Yes Status: Acute Assessment and Plan: Have independently interviewed and examined pt. Chart reviewed. Case discussed with my SYSTEMS TESTING LABORATORY TECHNICIAN. Care plan developed with my supervision; agree with above. Breathing rough-winded very readily. Little cough/congestion. No pain with breathing. At home, would use 2L O2 but O2 need have been increased while on [facility]. Strength and functional status decreased. Eating okay. No nausea or ab pain. Lungs: decreased bilaterally, basilar blunting. Little air movement. CV: irregularly irregular AB: soft nt/nd +BS EXT: +2 edema; SCD in place MSE: awake alert appropriate GEN: looks weak and tired. Plan: OBS. Consult with Dr Phillips for further cardiac recommendations. Will Restart Diamox (stopped on 01/23) due to increasing CO2. SCD to help decrease edema. PT to see for help with strengthening. Monitor lab. Overall, worry that further improvement not likely. Sepsis Assessment - Focused Exam Vital Signs Temp Pulse Resp BP Pulse Ox 01/29/17 16:40 20 95 01/29/17 16:08 96.7 F L 82 18 129/82 99 Hospital Course Summary Disclaimer: The visit summary below is not to be considered part of the above Progress Note.
[2017-01-29] MEDS ORDERED: FERROUS SULFATE 324 MG TABLET PO SCH (17:30)
[2017-01-29] MEDS: CARVEDILOL 3.125 MG TABLET PO SCH (19:45)
[2017-01-29] MEDS: BUDESONIDE INH.SOLN 0.5mg/2ml NEB IH SCH (20:38)
[2017-01-29] MEDS: ALBUTEROL/IPRATROPIUM 2.5mg-0.5mg/3ml NEB IH SCH (20:38)
[2017-01-29] MEDS: BENZONATATE 100 MG CAPSULE PO SCH (21:51)
[2017-01-29] MEDS: DOCUSATE SODIUM 100 MG CAPSULE PO SCH (21:52)
[2017-01-29] MEDS: MELATONIN 1 MG TABLET PO SCH ×2 (21:52→22:16)
[2017-01-29] MEDS: APIXABAN 5 MG TABLET PO SCH (21:52)
[2017-01-29] MEDS: MIRTAZAPINE 15 MG TABLET PO SCH ×2 (21:53→22:18)
[2017-01-29] MEDS: GUAIFENESIN LA 600 MG TABLET PO SCH ×2 (21:53→22:19)
[2017-01-29] MEDS: OLANZapine 5 MG TABLET PO SCH ×2 (21:54→22:15)
[2017-01-30] MEDS: OMEPRAZOLE 20 MG CAPSULE PO SCH (06:02)
[2017-01-30] MEDS: APIXABAN 5 MG TABLET PO SCH ×2 (09:07→21:54)
[2017-01-30] MEDS: GUAIFENESIN LA 600 MG TABLET PO SCH (09:07)
[2017-01-30] MEDS: BENZONATATE 100 MG CAPSULE PO SCH (09:07)
[2017-01-30] MEDS: acetaZOLAMIDE SR 500 MG CAPSULE PO SCH (09:07)
[2017-01-30] MEDS: FUROSEMIDE 40 MG TABLET PO SCH ×2 (09:07→14:47)
[2017-01-30] MEDS: ASPIRIN *EC* 81 MG TABLET PO SCH (09:08)
[2017-01-30] MEDS: CARVEDILOL 3.125 MG TABLET PO SCH ×2 (09:08→18:02)
[2017-01-30] MEDS: POLYETHYL GLYCOL 3350 17gm PACKET PO SCH (09:08)
[2017-01-30] MEDS: FERROUS SULFATE 324 MG TABLET PO SCH ×2 (09:08→14:47)
[2017-01-30] MEDS: DOCUSATE SODIUM 100 MG CAPSULE PO SCH ×2 (09:09→21:54)
[2017-01-30] MEDS: ALBUTEROL/IPRATROPIUM 2.5mg-0.5mg/3ml NEB IH SCH ×2 (10:57→21:19)
[2017-01-30] MEDS: BUDESONIDE INH.SOLN 0.5mg/2ml NEB IH SCH ×2 (10:57→21:20)
--- NOTE | 2017-01-30 18:50 | Progress Note ---
Subjective: F/U: Acute on chronic respiratory failure, Diastolic HF, Pulm HTN/Cor pulmonale Feels breathing improving-no with the respiratory distress she was having yesterday. No cough-would like to stop routine Tessalone Perles. No pain with breathing. Not reporting chest pressure or heaviness. Sleeping poorly-worries Mucinex affecting sleep (pt's daughters and granddaughters cannot sleep if taking Mucinex). Very resistant to the 'mood altering' medications started on [facility]-hard for her to grasp that the problems she attributes to the psych medication where present prior to her going to [facility] [facility]. Less swelling to legs - tolerating SCD. Eating well-feels appetite okay. Strength decreased. Objective Vital signs: Temp Pulse Resp BP Pulse Ox 96.2 F L 95 20 126/78 93 01/30/17 16:04 01/30/17 16:04 01/30/17 16:04 01/30/17 16:04 01/30/17 16:08 Weight: 51 kg - Constitutional Present: mild distress, well developed, thin - Routine HEENT Exam Head: Present: normocephalic, atraumatic Eye: Present: EOMI, PERRL ENT: Present: mucous membranes moist - Routine Respiratory Exam Present: decreased breath sounds, prolonged expiratory phase, distant breath sounds, diminished air movement. Absent: accessory muscle use, respiratory distress, rhonchi, stridor, wheezes, crackles - Routine Cardiovascular Exam Present: irregular rhythm, irregularly irregular - Routine Abdominal Exam Present: soft, normoactive bowel sounds, non distended, non tender - Routine Extremities Exam Present: edema (+1 BLE ). Absent: cyanosis Comments: SCD in place - Routine Musculoskeletal Exam Musculoskeletal: no clubbing or cyanosis, no joint swelling - Routine Skin Exam Present: intact, dry, warm. Absent: mottling - Routine Neurological Exam Present: alert, CN II-XII intact, vision grossly intact, hearing grossly intact. Absent: motor deficit - Routine Psychiatric Exam Present: normal affect. Absent: anxious, agitated Results - Labs CBC & Chem 7: 01/30/17 05:40 01/30/17 05:40 Assessment and Plan (1) Respiratory failure Current visit: Yes Status: Acute (2) A-fib Current visit: Yes Status: Acute (3) Diastolic heart failure Current visit: No Status: Acute (4) Chronic anticoagulation Current visit: Yes Status: Acute (5) Coronary artery disease Current visit: Yes Status: Acute (6) HTN (hypertension) Current visit: Yes Status: Acute (7) Pulmonary hypertension Current visit: Yes Status: Chronic (8) COPD (chronic obstructive pulmonary disease) Current visit: Yes Status: Acute (9) Anemia Current visit: Yes Status: Acute (10) Pleural effusion, left Current visit: Yes Status: Acute (11) Hx of pleural effusion Current visit: No Status: Acute DVT Prophylaxis: other (Eliquis) Assessment and Plan: Will stop Mucinex due to potential insomnia problems with this medicine. Stop Tessalon Perles due to lack of cough. Stop melatonin - likely not doing anything for her sleep. Encourage patient on continued use of her psych medications - concern she will worsen without them. Continue with Diamox and BIPAP (at night) to help decrease CO2. Continue to wean down O2 - down to 3L currently. Additional 20mEq KCl giving this evening as potassium low. Recheck BMP in am to monitor electrolytes and renal status. Check Mg due to low potassium. Check CBC due to anemia. Continue with OBS status. Case discussed with CM and pt's daughter. Time spent with pt care greater than 35 minutes. Sepsis Assessment - Evaluation Sepsis screening result: No Definite Risk - Focused Exam Vital Signs Temp Pulse Resp BP Pulse Ox 01/30/17 16:08 93 01/30/17 16:04 96.2 F L 95 20 126/78 93 01/30/17 10:51 18 97 01/30/17 08:00 96.5 F L 87 18 105/65 95 Respiratory exam: Present: decreased breath sounds Cardiovascular exam: Present: irregularly irregular Hospital Course Summary Disclaimer: The visit summary below is not to be considered part of the above Progress Note. Hospital Course: 01/29/17 17:30 Admit to observation status under the hospitalist service. Discussed with Pam's daughter, Rylee, - she's a medical claims specialist and is requesting to give her iron mid-morning and mid-afternoon with a drink containing Vit C and a small snack. She would also like Dr. Phillips to see her, which is reasonable given her need for frequent diuresis. Acute on chronic respiratory failure: She has increasing bicarbonate and was started on Diamox. Currently she is on Lasix 60 mg in the morning and 40 mg in the afternoon. Prior to admission she was on the Lasix to 60 mg in the morning. Dr. Booth is recommending to keep her on the dry side. She has a chronic right pleural effusion and is status post thoracentesis in December. She is still requiring increased oxygen from her baseline. She has been using BiPAP every night, at least, as she can tolerate. She also has severe pulmonary hypertension and diastolic CHF. Will repeat labs tomorrow morning to follow up on chemistries, and bicarbonate level. Chest x-ray was repeated today - fluid status is improved but she has persistent right pleural effusion. Discussed with Dr. Phillips and with Dr. Culver. Discharge plans: aPm is looking into area termite helper care facilities. 01/30/17 Feels breathing improving-no with the respiratory distress she was having yesterday. No cough-would like to stop routine Tessalone Perles. No pain with breathing. Not reporting chest pressure or heaviness. Sleeping poorly-worries Mucinex affecting sleep (pt's daughters and granddaughters cannot sleep if taking Mucinex). Very resistant to the 'mood altering' medications started on [facility]-hard for her to grasp that the problems she attributes to the psych medication where present prior to her going to [employer]. Less swelling to legs - tolerating SCD. Eating well-feels appetite okay. Strength decreased. Will stop Mucinex due to potential insomnia problems with this medicine. Stop Tessalon Perles due to lack of cough. Stop melatonin - likely not doing anything for her sleep. Encourage patient on continued use of her psych medications - concern she will worsen without them. Continue with Diamox and BIPAP (at night) to help decrease CO2. Continue to wean down O2 - down to 3L currently. Additional 20mEq KCl giving this evening as potassium low. Recheck BMP in am to monitor electrolytes and renal status. Check Mg due to low potassium. Check CBC due to anemia. Continue with OBS status.
[2017-01-30] MEDS ORDERED: LORazepam 0.5 MG TABLET PO PRN (20:22)
[2017-01-30] MEDS: MIRTAZAPINE 15 MG TABLET PO SCH (21:49)
[2017-01-30] MEDS: OLANZapine 5 MG TABLET PO SCH (21:53)
--- NOTE | 2017-01-30 23:52 | Cardiology Consult Note ---
History of Present Illness Consult date: 01/29/17 <Melina Pinto - 01/30/17 23:53> Requesting physician: Matthew Culver <Melina Pinto - 01/30/17 23:53> Consult reason: atrial fibrillation, congestive heart failure <Melina Pinto - 01/31/17 00:49> Chief complaint: SOB <Melina Pinto - 01/31/17 00:49> History of present illness: This is an 86 year old patient with a history of pleural effusion and chronic respiratory failure. She has CAD, Mitral stenosis and mitral regurgitation s/p mitral clip, tricuspid regurgitation, Diastolic heart failure, and Atrial fibrillation. The patient can not recall her medical history therefore the information is from the H&P. On 11/27/2016 she had a mitral clip for MS and MR at [facility]. She was readmitted 2016 for acute CHF and pleural effusion and underwent a thorancentesis by Dr. Witt. She has chronic A-fib and was seen by Dr. Booth and is on Eliquis for anticoagulation. In 01/2017 she was admitted to [facility] at [facility] for rehab. She developed acute CHF, with weight gain, CXR showed congestion and pleural effusion, oxygen requirements increased to Bipap support. She was diuresed with Bumex and given steroids for COPD exacerbation subsequently lasix was added. Her ABG's improved. For her A-fib w RVR, increased Cardizem 240mg daily. and Coreg was started. Hospitalist discussed with Dr. Booth; possible thoracentesis for the pleural effusion and was told another thorencentesis would create addition risk and not recommended. With increase in Bicarb, Diamox was added. An echo showed preserved LV function with high PA pressures, PHTN. She was improving and on 01/29/2017 she was ready for DC when she developed respiratory failure with mental status change and she was admitted to [facility] inpt and placed back on Bipap. she cont to be diuresed with Bumex and Diamox. Dr. Spencer was consulted for her CHF and cardiac issues. Thank you for this consult. <Melina Pinto - 01/31/17 00:49> Review of Systems - Constitutional Constitutional: Present: lethargy, malaise, weight gain, weight loss. Absent: chills, fever(s) <Melina Pinto 01/31/17 00:49> - EENMT Eyes: Absent: blurry vision <Melina Pinto 01/31/17 00:49> Mouth/Throat: Present: scratchy throat, other (thirsty) <Melina Pinto 00:49> - Cardiovascular Cardiovascular: Present: dyspnea on exertion, orthopnea <Melina Pinto 23:53> Vascular: Present: pedal edema <Melina Pinto 01/30/17 23:53> - Respiratory Respiratory: Present: dyspnea, wheezing <Melina Pinto 01/30/17 23:53> - Gastrointestinal Gastrointestinal: Absent: diarrhea, nausea <Melina Pinto 01/31/17 00:49> - Genitourinary Genitourinary: Absent: dysuria <Melina Pinto 01/31/17 00:49> - Musculoskeletal Musculoskeletal: Present: back pain, muscle weakness <Melina Pinto 01/31 00:49> - Integumentary/Breasts Integumentary: Present: swelling. Absent: rash <Melina Pinto 01/31/17 00:49> - Psychiatric Psychiatric: Present: as per HPI, anxiety, hallucinations <Melina Pinto 01/31/17 00:49> - Endocrine Endocrine: Present: cold intolerance, polydipsia, polyphagia <Melina Pinto 01/31/17 00:49> - Hematologic/Lymphatic Hematologic/Lymphatic: Present: easy bleeding <Melina Pinto 01/31/17 00: 49> [facility] Patient Stated Medical History Transient Ischemic Attacks ( INCREASING CONFUSION TIA) Cataracts Yes: REPAIRED Dental Problems Yes: implants Other HEENT Yes: BLIND L EYE Cardiac Arrhythmia Yes Congestive Heart Failure Yes Chronic Obstructive Pulmonary Yes Disease (COPD) Hiatal Hernia Yes Other GI Yes: SLOW ESOPHAGEAL MOTILITY Other Hematologic Yes: hep B Osteoarthritis Yes Other Infectious Yes: HEP B 1980 Blood Transfusions Yes: have had <Chapito Phillips - 04/12/17 15:21> Patient Stated Medical History Transient Ischemic Attacks ( INCREASING CONFUSION TIA) Cataracts Yes: REPAIRED Dental Problems Yes: implants Other HEENT Yes: BLIND L EYE Cardiac Arrhythmia Yes Congestive Heart Failure Yes Chronic Obstructive Pulmonary Yes Disease (COPD) Hiatal Hernia Yes Other GI Yes: SLOW ESOPHAGEAL MOTILITY Other Hematologic Yes: hep B Osteoarthritis Yes Other Infectious Yes: HEP B 1980 Blood Transfusions Yes: have had <Saman Pintoroxann Landa - 01/31/17 00:49> Surgical History: Bilateral femur fracture repair. cholecystectomy. total hysterectomy. breast lumpectomy. mitraclip x2 on 11/27/2016. right 5th finger surgery. Right thoracentesis-12/28/16 Dr. Witt <MillieMelina T 01/30/17 23:53> - Social History Smoking status: Former smoker <Millie,Melina T 01/30/17 23:53> Substance use type: does not use <Millie,Melina T 01/31/17 00:49> Alcohol intake: never <MillieMelina T 01/31/17 00:49> Current occupational status: retired <Millie,Melina T 01/31/17 00:49> Social history: PCP - Heather Schwab <MillieMelina T - 01/31/17 00:49> Medications Home Medications Medication Instructions Recorded Confirmed Type Acetaminophen 650 mg PO Q4H PRN 01/15/17 01/29/17 History Albuterol/Ipratropium [Duoneb] 3 ml IH BID 01/15/17 01/29/17 History Albuterol/Ipratropium [Duoneb] 3 ml IH Q2H PRN 01/15/17 01/29/17 History Apixaban [Eliquis] 2.5 mg PO BID 01/15/17 01/29/17 History Aspirin [Aspirin EC] 81 mg PO DAILY 01/15/17 01/29/17 History Benzonatate [Tessalon Perles] 100 mg PO BID 01/15/17 01/29/17 History Bisacodyl Supp [Dulcolax] 10 mg RECTALLY DAILY PRN 01/15/17 01/29/17 History Cholecalciferol [Vit. D-3] 1,000 unit PO DAILY 01/15/17 01/29/17 History Docusate Sodium [Colace] 100 mg PO BID 01/15/17 01/29/17 History Ferrous Sulfate [Iron] 325 mg PO BID 01/15/17 01/29/17 History Furosemide [Lasix] 60 mg PO DAILY 01/15/17 01/29/17 History Milk of Magnesia [Mom] 30 ml PO PRN PRN 01/15/17 01/29/17 History Omeprazole [Prilosec] 1 cap PO ACB 01/15/17 01/29/17 History Polyethylene Glycol 3350 [Miralax] 17 gm PO DAILY 01/15/17 01/29/17 History Potassium Chloride 20 meq PO BID 01/15/17 01/29/17 History Trolamine Salicylate 10% Cream 1 applic TOP Q8H PRN 01/15/17 01/29/17 History [Aspercreme] guaiFENesin [Mucinex] 600 mg PO BID 01/15/17 01/29/17 History Budesonide Inhalation [Pulmicort 0.5 mg IH BID 01/29/17 01/29/17 History Inhalation] Carvedilol [Coreg] 1 tab PO BIDWM 01/29/17 01/29/17 History Furosemide [Lasix] 1 tab PO DAILY 01/29/17 01/29/17 History dilTIAZem HCl [Diltiazem 24Hr Cd] 240 mg PO DAILY 01/29/17 01/29/17 History <Chapito Phillips - 04/12/17 15:21> Allergies Allergy/AdvReac Type Severity Reaction Status Date / Time No Known Drug Allergies Allergy Verified 01/29/17 13:10 No Known Adverse Drug AdvReac Verified 01/29/17 13:11 Reactions <Chapito Phillips - 04/12/17 15:21> Exam Vital signs: Temperature 96.7 F L 02/04/17 07:38 Pulse Rate 93 02/04/17 08:00 Respiratory Rate 20 02/04/17 07:38 Blood Pressure 119/75 02/04/17 07:38 Pulse Oximetry 99 02/04/17 07:38 Oxygen Delivery Method Nasal Cannula Oxygen Flow Rate 2 Fraction of Inspired Oxygen 30 SaO2/FiO2 Ratio 326 <Chapito Phillips - 04/12/17 15:21> Temp Pulse Resp BP Pulse Ox 96.2 F L 95 20 126/78 93 01/30/17 16:04 01/30/17 16:04 01/30/17 21:20 01/30/17 16:04 01/30/17 21:20 <Melina Pinto 01/31/17 00:49> - Constitutional no acute distress, thin <Melina Pinto 01/31/17 00:49> - Routine HEENT Exam Head: Present: normocephalic, atraumatic <Melina Pinto 01/31/17 00:49> Eye: Present: conjunctivae pink <Melina Pinto 01/31/17 00:49> ENT: Present: mucous membranes dry <Melina Pinto 01/31/17 00:49> - Routine Neck Exam Absent: JVD, carotid bruit <Melina Pinto 01/31/17 00:49> - Routine Chest/Breast/Axilla Exam Chest wall: Absent: tenderness <Melina Pinto 01/31/17 00:49> - Routine Respiratory Exam Present: decreased breath sounds <Melina Pinto 01/31/17 00:49> - Routine Cardiovascular Exam Present: irregular rhythm <Melina Pinto 01/31/17 00:49> - Routine Abdominal Exam Present: distended <Melina Pinto 01/31/17 00:49> - Routine Skin Exam Present: dry, warm <Melina Pinto 01/31/17 00:49> - Routine Neurological Exam Present: altered mental status, moving all extremities <Melina Pinto 00:49> - Routine Psychiatric Exam Present: unable to assess (she has received ativan and has Bipap. ) <Melina Pinto 01/31/17 00:49> Results 02/04/17 04:30 02/04/17 04:30 <Chapito Phillips - 04/12/17 15:21> CBC 01/30/17 Range/Units 05:40 WBC 9.7 (4.5-11.0) T/MM3 RBC 3.44 L (4.00-5.20) M/MM3 Hgb 10.0 L D (12-16) GM/DL Hct 35.3 L D (36-46) % Plt Count 342 (130-400) T/MM3 Neut # 8.0 H (1.8-7.7) T/MM3 Lymph # 0.8 L (1-4.8) T/MM3 [place] # 0.7 (0-0.8) T/MM3 Eos # 0.2 (0-0.5) T/MM3 Baso # 0.0 (0-0.2) T/MM3 Comprehensive Metabolic Panel 01/30/17 Range/Units 05:40 Sodium 143 (134-144) MEQ/L Potassium 3.5 L D (3.6-5) MEQ/L Chloride 92 L (98-107) MEQ/L Carbon Dioxide 43 H* (22-30) MEQ/L BUN 30.0 H (7-17) MG/DL Creatinine 0.7 D (0.7-1.2) MG/DL Glucose 88 (65-110) MG/DL Calcium 8.0 L (8.4-10.2) MG/DL Intake and Output 01/30/17 01/30/17 01/31/17 14:59 22:59 06:59 Intake Total 1150 / 1150 50 / 50 Output Total 600 / 600 650 / 650 Balance 550 / 550 -600 / -600 Intake: Oral 1150 / 1150 50 / 50 Output: Urine 600 / 600 650 / 650 Other: # Voids 1 1 # Bowel Movements 1 1 Weight 112 lb 6.972 oz Patient Weight 01/31/17 06:59 Weight 112 lb 6.972 oz <Melina Pinto - 01/30/17 23:53> - Imaging and Cardiology EKG results: image reviewed (Afib. HR 80's to 90's ) <Melina Pinto 01/31 01:06> - EKG Interpretation EKG shows: atrial fibrillation <Melina Pinto 01/31/17 01:06> EKG interpretations - EKG EKG shows: atrial fibrillation <Melina Pinto 01/31/17 01:06> Assessment and Plan (1) Dementia with behavioral disturbance Status: Acute (2) A-fib Status: Chronic (3) Chronic anticoagulation Status: Chronic (4) Diastolic heart failure Status: Acute (5) Mitral regurgitation Status: Chronic (6) HTN (hypertension) Status: Chronic (7) Respiratory failure Status: Acute (8) Pulmonary hypertension Status: Chronic (9) Pleural effusion, left Status: Chronic <Chapito Phillips - 04/12/17 15:21> (1) Diastolic heart failure Status: Acute Good U/O, symptoms improved. she does not lood fluid overloaded. lytes and renal function acceptable. cont lasix. With PCO2 40's - cont diamox. (2) A-fib Status: Chronic chronic. Heart rate contorlled. cont cardizem 240mg and coreg. for rate control. cont eliquis for anticoagulation. (3) Chronic anticoagulation Status: Chronic cont eliquis. (4) HTN (hypertension) Status: Chronic Well controlled. cont coreg and cardizem (for HR control). (5) Respiratory failure Status: Acute On Bipap for PCO2 40's. O2 sats good. RN had to give ativan for pt to tolerate the Bipap. (6) Pulmonary hypertension Status: Chronic cont diuresis (7) Dementia with behavioral disturbance Status: Acute (8) Mitral regurgitation Status: Chronic s/p mitral clip (9) Pleural effusion, left Status: Chronic no palns for thoracentesis at this time. cont diuresis. monitor with CXR. <Melina Pinto - 04/10/17 15:42> - Attestation Attestation Narrative: 04/12/17 15:21 Recommendation After examining the patient I agree with the above assessment. I am involved in the formulation of the patient's plan of care. <Chapito Phillips - 04/12/17 15:21> 01/31/17 01:02 Dr. Phillips has seen and examined pt on 01/29/2017 and has determined this plan of care. Pt does not have a many options for her condition. We recommend hospice care. Thank you for this consult. We will sign off for the weekend. Please feel free to call for any concerns or questions. 01/31/17 01:05 <Melina Pinto - 01/31/17 01:06> Hospital Course Summary Disclaimer: The visit summary below is not to be considered part of the above Progress Note. <Chapito Phillips - 04/12/17 15:21> The visit summary below is not to be considered part of the above Progress Note. <Melina Pinto - 01/30/17 23:53> Hospital Course: 01/29/17 17:30 Admit to observation status under the hospitalist service. Discussed with Pam's daughter, Rylee, - she's a personal service representative and is requesting to give her iron mid-morning and mid-afternoon with a drink containing Vit C and a small snack. She would also like Dr. Phillips to see her, which is reasonable given her need for frequent diuresis. Acute on chronic respiratory failure: She has increasing bicarbonate and was started on Diamox. Currently she is on Lasix 60 mg in the morning and 40 mg in the afternoon. Prior to admission she was on the Lasix to 60 mg in the morning. Dr. Booth is recommending to keep her on the dry side. She has a chronic right pleural effusion and is status post thoracentesis in December. She is still requiring increased oxygen from her baseline. She has been using BiPAP every night, at least, as she can tolerate. She also has severe pulmonary hypertension and diastolic CHF. Will repeat labs tomorrow morning to follow up on chemistries, and bicarbonate level. Chest x-ray was repeated today - fluid status is improved but she has persistent right pleural effusion. Discussed with Dr. Phillips and with Dr. Culver. Discharge plans: Pam is looking into area jail care facilities. 01/30/17 Feels breathing improving-no with the respiratory distress she was having yesterday. No cough-would like to stop routine Tessalone Perles. No pain with breathing. Not reporting chest pressure or heaviness. Sleeping poorly-worries Mucinex affecting sleep (pt's daughters and granddaughters cannot sleep if taking Mucinex). Very resistant to the 'mood altering' medications started on [facility]-hard for her to grasp that the problems she attributes to the psych medication where present prior to her going to [facility]. Less swelling to legs - tolerating SCD. Eating well-feels appetite okay. Strength decreased. Will stop Mucinex due to potential insomnia problems with this medicine. Stop Tessalon Perles due to lack of cough. Stop melatonin - likely not doing anything for her sleep. Encourage patient on continued use of her psych medications - concern she will worsen without them. Continue with Diamox and BIPAP (at night) to help decrease CO2. Continue to wean down O2 - down to 3L currently. Additional 20mEq KCl giving this evening as potassium low. Recheck BMP in am to monitor electrolytes and renal status. Check Mg due to low potassium. Check CBC due to anemia. Continue with OBS status. <Melina Pinto 01/30/17 23:53> Sepsis Assessment - Evaluation Sepsis screening result: No Definite Risk <Melina Pinto 01/30/17 23:53> - Focused Exam Vital Signs Temp Pulse Resp BP Pulse Ox 01/30/17 21:20 20 93 01/30/17 16:08 93 01/30/17 16:04 96.2 F L 95 20 126/78 93 <Melina Pinto 01/30/17 23:53> Respiratory exam: Present: decreased breath sounds <Melina Pinto 23:53> Cardiovascular exam: Present: irregularly irregular <Melina Pinto 23:53>
[2017-01-31] MEDS: OMEPRAZOLE 20 MG CAPSULE PO SCH (06:46)
[2017-01-31] MEDS: APIXABAN 5 MG TABLET PO SCH ×2 (09:11→21:14)
[2017-01-31] MEDS: ASPIRIN *EC* 81 MG TABLET PO SCH (09:12)
[2017-01-31] MEDS: DOCUSATE SODIUM 100 MG CAPSULE PO SCH ×2 (09:12→21:13)
[2017-01-31] MEDS: acetaZOLAMIDE SR 500 MG CAPSULE PO SCH (09:12)
[2017-01-31] MEDS: CARVEDILOL 3.125 MG TABLET PO SCH ×2 (09:12→17:24)
[2017-01-31] MEDS: POLYETHYL GLYCOL 3350 17gm PACKET PO SCH (09:13)
[2017-01-31] MEDS: FUROSEMIDE 40 MG TABLET PO SCH ×2 (09:13→14:13)
[2017-01-31] MEDS: FERROUS SULFATE 324 MG TABLET PO SCH ×2 (09:18→14:13)
[2017-01-31] MEDS: ALBUTEROL/IPRATROPIUM 2.5mg-0.5mg/3ml NEB IH SCH ×2 (10:47→21:01)
[2017-01-31] MEDS: BUDESONIDE INH.SOLN 0.5mg/2ml NEB IH SCH ×2 (10:47→21:01)
--- NOTE | 2017-01-31 16:57 | Progress Note ---
Subjective: F/U: Acute on chronic respiratory failure, Diastolic HF, Pulm HTN/Cor pulmonale Breathing feels about the same. Not having increased cough. Did sleep better last night with Mucinex stopped. Refused Zyprexa and Remeron last night. Nursing reported eating well. Pt did refuse bowel medications today as she had a good stool yesterday. No ab pain or nausea. Not feeling chest pressure or pain. Objective Vital signs: Temp Pulse Resp BP Pulse Ox 97.0 F 108 H 26 H 113/73 93 01/31/17 15:33 01/31/17 16:00 01/31/17 15:33 01/31/17 15:33 01/31/17 15:33 Weight: 52.1 kg - Constitutional Present: no acute distress, well nourished, well developed, thin - Routine HEENT Exam Head: Present: normocephalic, atraumatic Eye: Present: EOMI, PERRL ENT: Present: mucous membranes dry - Routine Respiratory Exam Present: decreased breath sounds, prolonged expiratory phase, distant breath sounds, diminished air movement. Absent: wheezes, crackles - Routine Cardiovascular Exam Present: irregular rhythm, irregularly irregular - Routine Abdominal Exam Present: soft, normoactive bowel sounds, non distended, non tender - Routine Extremities Exam Present: edema (Trace bilaterally LE) Comments: SCD in place bilaterally - Routine Skin Exam Present: intact, dry, warm. Absent: mottling - Routine Neurological Exam Present: alert, CN II-XII intact. Absent: motor deficit - Routine Psychiatric Exam Present: normal affect. Absent: anxious, agitated Results - Labs CBC & Chem 7: 01/31/17 04:57 01/31/17 04:57 - ABG Interpretation Attestation: I reviewed and interpreted this ABG. ABG results: 01/31/17 12:15 ABG pH 7.390 ABG pCO2 80 H* ABG pO2 52 L ABG HCO3 48 H ABG Total CO2 50.9 H ABG O2 Saturation 86.0 L ABG Base Excess 19.3 H Interpretation: respiratory acidosis Assessment and Plan (1) Respiratory failure Current visit: Yes Status: Acute (2) A-fib Current visit: Yes Status: Acute (3) Diastolic heart failure Current visit: Yes Status: Acute (4) Chronic anticoagulation Current visit: Yes Status: Acute (5) Coronary artery disease Current visit: Yes Status: Acute (6) HTN (hypertension) Current visit: Yes Status: Acute (7) Pulmonary hypertension Current visit: Yes Status: Chronic (8) COPD (chronic obstructive pulmonary disease) Current visit: Yes Status: Acute (9) Anemia Current visit: Yes Status: Acute (10) Pleural effusion, left Current visit: Yes Status: Acute (11) Hx of pleural effusion Current visit: No Status: Acute DVT Prophylaxis: SCD's Resuscitation Status: Full Code Assessment and Plan: Continue with BiPAP to help respiratory support and decrease CO2. Encourage deep breathing. Encourage patient on continued use of her psych medications - concern she will worsen without them. With pt refusing meds last, monitor for change in cognitive status. Continue with Diamox and BIPAP (at night) to help decrease CO2. Continue to wean down O2 - down to 3L currently. Use Lowest flow possible to keep sats 89-91% Recheck BMP in am to monitor electrolytes and renal status. Check CBC due to anemia. Dr Phillips's cardiac recommendations are Hospice. Continue with OBS status. Case discussed with nursing. Time spent with pt care 25 minutes. Sepsis Assessment - Evaluation Sepsis screening result: No Definite Risk - Focused Exam Vital Signs Temp Pulse Resp BP Pulse Ox 01/31/17 16:00 108 H 01/31/17 15:33 97.0 F 84 26 H 113/73 93 01/31/17 12:19 97 01/31/17 12:06 93 01/31/17 10:43 24 94 01/31/17 08:00 103 H 01/31/17 07:47 97.8 F 88 24 108/67 91 01/31/17 05:22 87 143/75 H Respiratory exam: Present: decreased breath sounds Cardiovascular exam: Present: irregularly irregular Hospital Course Summary Disclaimer: The visit summary below is not to be considered part of the above Progress Note. Hospital Course: 01/29/17 17:30 Admit to observation status under the hospitalist service. Discussed with Pam's daughter, Rylee, - she's a electric meter inspector and is requesting to give her iron mid-morning and mid-afternoon with a drink containing Vit C and a small snack. She would also like Dr. Phillips to see her, which is reasonable given her need for frequent diuresis. Acute on chronic respiratory failure: She has increasing bicarbonate and was started on Diamox. Currently she is on Lasix 60 mg in the morning and 40 mg in the afternoon. Prior to admission she was on the Lasix to 60 mg in the morning. Dr. Booth is recommending to keep her on the dry side. She has a chronic right pleural effusion and is status post thoracentesis in December. She is still requiring increased oxygen from her baseline. She has been using BiPAP every night, at least, as she can tolerate. She also has severe pulmonary hypertension and diastolic CHF. Will repeat labs tomorrow morning to follow up on chemistries, and bicarbonate level. Chest x-ray was repeated today - fluid status is improved but she has persistent right pleural effusion. Discussed with Dr. Phillips and with Dr. Culver. Discharge plans: Pam is looking into area custodial care facilities. 01/30/17 Feels breathing improving-no with the respiratory distress she was having yesterday. No cough-would like to stop routine Tessalone Perles. No pain with breathing. Not reporting chest pressure or heaviness. Sleeping poorly-worries Mucinex affecting sleep (pt's daughters and granddaughters cannot sleep if taking Mucinex). Very resistant to the 'mood altering' medications started on [facility]-hard for her to grasp that the problems she attributes to the psych medication where present prior to her going to [facility] Less swelling to legs - tolerating SCD. Eating well-feels appetite okay. Strength decreased. Will stop Mucinex due to potential insomnia problems with this medicine. Stop Tessalon Perles due to lack of cough. Stop melatonin - likely not doing anything for her sleep. Encourage patient on continued use of her psych medications - concern she will worsen without them. Continue with Diamox and BIPAP (at night) to help decrease CO2. Continue to wean down O2 - down to 3L currently. Additional 20mEq KCl giving this evening as potassium low. Recheck BMP in am to monitor electrolytes and renal status. Check Mg due to low potassium. Check CBC due to anemia. Continue with OBS status. 01/31/17 Breathing feels about the same. Not having increased cough. Did sleep better last night with Mucinex stopped. Refused Zyprexa and Remeron last night. Nursing reported eating well. Pt did refuse bowel medications today as she had a good stool yesterday. No ab pain or nausea. Not feeling chest pressure or pain. Continue with BiPAP to help respiratory support and decrease CO2. Encourage deep breathing. Encourage patient on continued use of her psych medications - concern she will worsen without them. With pt refusing meds last, monitor for change in cognitive status. Continue with Diamox and BIPAP (at night) to help decrease CO2. Continue to wean down O2 - down to 3L currently. Use Lowest flow possible to keep sats 89-91% Recheck BMP in am to monitor electrolytes and renal status. Check CBC due to anemia. Dr Phillips's cardiac recommendations are Hospice. Continue with OBS status.
[2017-01-31] MEDS: MIRTAZAPINE 15 MG TABLET PO SCH (21:16)
[2017-01-31] MEDS: OLANZapine 5 MG TABLET PO SCH (21:16)
[2017-02-01] MEDS: OMEPRAZOLE 20 MG CAPSULE PO SCH (06:02)
[2017-02-01] MEDS: ALBUTEROL/IPRATROPIUM 2.5mg-0.5mg/3ml NEB IH SCH ×2 (08:02→19:05)
[2017-02-01] MEDS: BUDESONIDE INH.SOLN 0.5mg/2ml NEB IH SCH ×2 (08:02→19:05)
[2017-02-01] MEDS: APIXABAN 5 MG TABLET PO SCH ×2 (10:04→20:25)
[2017-02-01] MEDS: DOCUSATE SODIUM 100 MG CAPSULE PO SCH ×2 (10:05→20:57)
[2017-02-01] MEDS: FERROUS SULFATE 324 MG TABLET PO SCH ×2 (10:05→14:36)
[2017-02-01] MEDS: ASPIRIN *EC* 81 MG TABLET PO SCH (10:05)
[2017-02-01] MEDS: POLYETHYL GLYCOL 3350 17gm PACKET PO SCH (10:05)
[2017-02-01] MEDS: acetaZOLAMIDE SR 500 MG CAPSULE PO SCH ×2 (10:06→10:33)
[2017-02-01] MEDS: CARVEDILOL 3.125 MG TABLET PO SCH ×2 (10:06→17:40)
[2017-02-01] MEDS: FUROSEMIDE 40 MG TABLET PO SCH ×2 (10:08→14:36)
--- NOTE | 2017-02-01 11:36 | Progress Note ---
<RosalbaReanna D - Last Filed: 02/01/17 11:52> Subjective: Pam stated she thinks she's doing better. She denies any shortness of breath - but asked for a breathing treatment because she thinks it's time. She asked about the results of her chest x-ray done yesterday and we reviewed limited treatment options and palliative care. She stated she's thought about hospice previously but doesn't think she's there yet. She denies any abdominal pain or GI complaints. Objective Vital signs: Temp Pulse Resp BP Pulse Ox 96.8 F 96 18 114/69 98 02/01/17 07:52 02/01/17 07:52 02/01/17 08:02 02/01/17 07:52 02/01/17 08:02 Weight: 51.2 kg - Constitutional Present: no acute distress, well nourished, well developed, thin - Routine HEENT Exam ENT: Present: mucous membranes moist - Routine Respiratory Exam Present: decreased breath sounds, diminished air movement - Routine Cardiovascular Exam Present: irregularly irregular - Routine Abdominal Exam Present: soft, normoactive bowel sounds - Routine Extremities Exam Present: edema (1+) - Routine Musculoskeletal Exam Musculoskeletal: no tenderness - Routine Skin Exam Present: intact, dry, warm - Routine Neurological Exam Present: alert, oriented X3 - Routine Psychiatric Exam Present: normal affect, normal thought process Results - Labs CBC & Chem 7: 02/01/17 04:31 02/01/17 04:31 - ABG Interpretation ABG results: 01/31/17 12:15 ABG pH 7.390 ABG pCO2 80 H* ABG pO2 52 L ABG HCO3 48 H ABG Total CO2 50.9 H ABG O2 Saturation 86.0 L ABG Base Excess 19.3 H Assessment and Plan (1) Hx of pleural effusion Current visit: No Status: Acute (2) Coronary artery disease Current visit: Yes Status: Acute (3) A-fib Current visit: Yes Status: Acute (4) Chronic anticoagulation Current visit: Yes Status: Acute (5) Diastolic heart failure Current visit: Yes Status: Acute (6) Anemia Current visit: Yes Status: Acute (7) HTN (hypertension) Current visit: Yes Status: Acute (8) Respiratory failure Current visit: Yes Status: Acute (9) Pulmonary hypertension Current visit: Yes Status: Chronic (10) COPD (chronic obstructive pulmonary disease) Current visit: Yes Status: Acute (11) Pleural effusion, left Current visit: Yes Status: Acute DVT Prophylaxis: other (eliquis) Assessment and Plan: Pleural effusion with CHF -On Lasix BID (60 in am and 40 in afternoon) along with Diamox to help with contraction alkalosis -CO2 still elevated but improved from yesterday (46 to 43) -May need to drop the afternoon dose of Lasix b/c of climbing renal functions -cont O2 and BiPAP -CXR personally reviewed - R effusion again noted with increasing L effusion ( report pending) Discharge planning -Palliative care (and hospice) discussion would be beneficial -CM waiting to hear back from 2 facilities in [place] Discussed with Dr. Culver Sepsis Assessment - Evaluation Sepsis screening result: No Definite Risk - Focused Exam Vital Signs Temp Pulse Resp BP Pulse Ox 02/01/17 08:02 18 98 02/01/17 07:52 96.8 F 96 22 114/69 100 02/01/17 00:00 100 Respiratory exam: Present: decreased breath sounds Cardiovascular exam: Present: irregularly irregular Hospital Course Summary Disclaimer: The visit summary below is not to be considered part of the above Progress Note. Hospital Course: 01/29/17 17:30 Admit to observation status under the hospitalist service. Discussed with Pam's daughter, Rylee, - she's a theoretical physicist and is requesting to give her iron mid-morning and mid-afternoon with a drink containing Vit C and a small snack. She would also like Dr. Phillips to see her, which is reasonable given her need for frequent diuresis. Acute on chronic respiratory failure: She has increasing bicarbonate and was started on Diamox. Currently she is on Lasix 60 mg in the morning and 40 mg in the afternoon. Prior to admission she was on the Lasix to 60 mg in the morning. Dr. Booth is recommending to keep her on the dry side. She has a chronic right pleural effusion and is status post thoracentesis in December. She is still requiring increased oxygen from her baseline. She has been using BiPAP every night, at least, as she can tolerate. She also has severe pulmonary hypertension and diastolic CHF. Will repeat labs tomorrow morning to follow up on chemistries, and bicarbonate level. Chest x-ray was repeated today - fluid status is improved but she has persistent right pleural effusion. Discussed with Dr. Phillips and with Dr. Culver. Discharge plans: Pam is looking into area [facility] care facilities. 01/30/17 Feels breathing improving-no with the respiratory distress she was having yesterday. No cough-would like to stop routine Tessalone Perles. No pain with breathing. Not reporting chest pressure or heaviness. Sleeping poorly-worries Mucinex affecting sleep (pt's daughters and granddaughters cannot sleep if taking Mucinex). Very resistant to the 'mood altering' medications started on [facility]-hard for her to grasp that the problems she attributes to the psych medication where present prior to her going to [facility]. Less swelling to legs - tolerating SCD. Eating well-feels appetite okay. Strength decreased. Will stop Mucinex due to potential insomnia problems with this medicine. Stop Tessalon Perles due to lack of cough. Stop melatonin - likely not doing anything for her sleep. Encourage patient on continued use of her psych medications - concern she will worsen without them. Continue with Diamox and BIPAP (at night) to help decrease CO2. Continue to wean down O2 - down to 3L currently. Additional 20mEq KCl giving this evening as potassium low. Recheck BMP in am to monitor electrolytes and renal status. Check Mg due to low potassium. Check CBC due to anemia. Continue with OBS status. 01/31/17 Breathing feels about the same. Not having increased cough. Did sleep better last night with Mucinex stopped. Refused Zyprexa and Remeron last night. Nursing reported eating well. Pt did refuse bowel medications today as she had a good stool yesterday. No ab pain or nausea. Not feeling chest pressure or pain. Continue with BiPAP to help respiratory support and decrease CO2. Encourage deep breathing. Encourage patient on continued use of her psych medications - concern she will worsen without them. With pt refusing meds last, monitor for change in cognitive status. Continue with Diamox and BIPAP (at night) to help decrease CO2. Continue to wean down O2 - down to 3L currently. Use Lowest flow possible to keep sats 89-91% Recheck BMP in am to monitor electrolytes and renal status. Check CBC due to anemia. Dr Phillips's cardiac recommendations are Hospice. Continue with OBS status. 02/01/17 Pleural effusion with CHF -On Lasix BID (60 in am and 40 in afternoon) along with Diamox to help with contraction alkalosis -CO2 still elevated but improved from yesterday (46 to 43) -May need to drop the afternoon dose of Lasix b/c of climbing renal functions -cont O2 and BiPAP Discharge planning -Palliative care (and hospice) discussion would be beneficial -CM waiting to hear back from 2 facilities in [place] <Matthew Culver - Last Filed: 02/01/17 17:30> Objective Vital signs: Temp Pulse Resp BP Pulse Ox 97.6 F 80 20 98/63 97 02/01/17 15:00 02/01/17 15:46 02/01/17 15:00 02/01/17 15:00 02/01/17 15:00 Results - Labs CBC & Chem 7: 02/01/17 04:31 02/01/17 04:31 - ABG Interpretation ABG results: 01/31/17 12:15 ABG pH 7.390 ABG pCO2 80 H* ABG pO2 52 L ABG HCO3 48 H ABG Total CO2 50.9 H ABG O2 Saturation 86.0 L ABG Base Excess 19.3 H Assessment and Plan (1) Respiratory failure Current visit: Yes Status: Acute (2) Pleural effusion, left Current visit: Yes Status: Chronic (3) Coronary artery disease Current visit: Yes Status: Chronic (4) A-fib Current visit: Yes Status: Chronic (5) Chronic anticoagulation Current visit: Yes Status: Chronic (6) Diastolic heart failure Current visit: Yes Status: Acute (7) HTN (hypertension) Current visit: Yes Status: Chronic (8) COPD (chronic obstructive pulmonary disease) Current visit: Yes Status: Acute (9) Pulmonary hypertension Current visit: Yes Status: Chronic (10) Anemia Current visit: Yes Status: Acute (11) Hx of pleural effusion Current visit: No Status: Acute Assessment and Plan: Have independently interviewed and examined pt. Chart reviewed. Case discussed with CM and my MACHINERY ENGINEER. Care plan developed with my supervision; agree with above. Doing well this afternoon. Walked from her room to down the rock so she could sit in the sun and see outside. Feels breathing doing okay. No pain with breathing and not having cough/congestion. No chest pressure. Reports appetite good and eating well; liking the food here. No ab pain or nausea. Stools stable. Lungs: decreased bilaterally, little air movement. Basilar blunting. No distress with O2. Refused Remeron and Zyprexa last night (second night in a row without these psychiatric medications). CV: irregularly irregular AB: soft nt/nd +BS MSE: awake alert appropriate Plan: Continue cardiac medications-check on CO2 tomorrow am; potentially need to decrease afternoon dose of Lasix to 20mg. Encourage continued ambulation and activities to help strength. Monitor mental status off her psych medications - pt refusing then (doesn't see the need, feels they affect her thought process too much) - currently seeming to do well off of them. Repeat BMP/CBC in am. Continue with supportive care. Sepsis Assessment - Focused Exam Vital Signs Temp Pulse Resp BP Pulse Ox 02/01/17 15:46 80 02/01/17 15:00 97.6 F 81 20 98/63 97 02/01/17 08:02 18 98 02/01/17 08:00 90 02/01/17 07:52 96.8 F 96 22 114/69 100 Hospital Course Summary Disclaimer: The visit summary below is not to be considered part of the above Progress Note.
--- NOTE | 2017-02-01 14:28 | XRay Report ---
EXAM: XR chest 2V HISTORY: F/U effusions LOCATION OF DICTATION: [facility] COMPARISON: Prior examination dated 01/29/2017 FINDINGS: The cardiomediastinal silhouette is stable, the heart remains upper limits of normal size. The trachea is midline and there's no evidence mediastinal widening. The pulmonary vascularity is normal. The previously identified congestive changes appear to have resolved in the interval. Small to moderate sized bilateral pleural effusions are again evident right greater than left with subjacent infiltrate and or atelectasis at the lung bases. The right pleural fluid collection appears to have decreased in size slightly in the interval The bony thorax appears stable. IMPRESSION: 1. Small to moderate bilateral pleural effusions persist right greater than left. The right pleural effusion appears of decreased in size slightly in the interval. 2. Moderate cardiomegaly without overt congestive changes. .
--- NOTE | 2017-02-01 15:32 | Cardiology Progress Note ---
Subjective Principal diagnosis: atrial fibrillation, congestive heart failure <Enid Otoole 02/01/17 15:42> Interval history: Pam is sitting up in her room on the Medical Unit. She states her breathing is "fine" today. She denies chest pain or pressure, palpitations or other cardiac complaints. <Enid Otoole 02/01/17 15:42> Exam Vital signs: Temp Pulse Resp BP Pulse Ox 96.7 F L 93 20 119/75 99 02/04/17 07:38 02/04/17 08:00 02/04/17 07:38 02/04/17 07:38 02/04/17 07:38 <Chapito Phillips - 02/04/17 13:50> Temp Pulse Resp BP Pulse Ox 97.6 F 81 20 98/63 97 02/01/17 15:00 02/01/17 15:00 02/01/17 15:00 02/01/17 15:00 02/01/17 15:00 <Enid Otoole 02/01/17 15:42> - Constitutional no acute distress, cooperative <Enid Otoole 02/01/17 15:42> - Routine HEENT Exam ENT: Present: mucous membranes moist <Enid Otoole 02/01/17 15:42> - Routine Neck Exam Absent: JVD, carotid bruit <Enid Otoole 02/01/17 15:42> - Routine Chest/Breast/Axilla Exam Chest wall: Absent: tenderness <Enid Otoole 02/01/17 15:42> - Routine Respiratory Exam Present: decreased breath sounds, diminished air movement. Absent: rales, wheezes <Enid Otoole 02/01/17 15:42> - Routine Cardiovascular Exam Present: irregularly irregular. Absent: JVD <Enid Otoole 02/01/17 15:42> - Routine Abdominal Exam Present: soft, normoactive bowel sounds <Enid Otoole 02/01/17 15:42> - Routine Extremities Exam Present: edema <Enid Otoole 02/01/17 15:42> - Routine Neurological Exam Present: alert <Enid Otoole 02/01/17 15:42> - Routine Psychiatric Exam Present: normal affect, normal thought process <Enid Otoole - 02/01/17 15: 42> Hospital Course Hospital course: Recommendation After examining the patient I agree with the above assessment. I am involved in the formulation of the patient's plan of care. <Chapito Phillips - 02/04/17 13:50> 01/29/17 17:30 Admit to observation status under the hospitalist service. Discussed with Pam's daughter, Rylee, - she's a escrow manager and is requesting to give her iron mid-morning and mid-afternoon with a drink containing Vit C and a small snack. She would also like Dr. Phillips to see her, which is reasonable given her need for frequent diuresis. Acute on chronic respiratory failure: She has increasing bicarbonate and was started on Diamox. Currently she is on Lasix 60 mg in the morning and 40 mg in the afternoon. Prior to admission she was on the Lasix to 60 mg in the morning. Dr. Booth is recommending to keep her on the dry side. She has a chronic right pleural effusion and is status post thoracentesis in December. She is still requiring increased oxygen from her baseline. She has been using BiPAP every night, at least, as she can tolerate. She also has severe pulmonary hypertension and diastolic CHF. Will repeat labs tomorrow morning to follow up on chemistries, and bicarbonate level. Chest x-ray was repeated today - fluid status is improved but she has persistent right pleural effusion. Discussed with Dr. Phillips and with Dr. Culver. Discharge plans: Pam is looking into area [facility] care facilities. 01/30/17 Feels breathing improving-no with the respiratory distress she was having yesterday. No cough-would like to stop routine Tessalone Perles. No pain with breathing. Not reporting chest pressure or heaviness. Sleeping poorly-worries Mucinex affecting sleep (pt's daughters and granddaughters cannot sleep if taking Mucinex). Very resistant to the 'mood altering' medications started on [facility]-hard for her to grasp that the problems she attributes to the psych medication where present prior to her going to [facility]. Less swelling to legs - tolerating SCD. Eating well-feels appetite okay. Strength decreased. Will stop Mucinex due to potential insomnia problems with this medicine. Stop Tessalon Perles due to lack of cough. Stop melatonin - likely not doing anything for her sleep. Encourage patient on continued use of her psych medications - concern she will worsen without them. Continue with Diamox and BIPAP (at night) to help decrease CO2. Continue to wean down O2 - down to 3L currently. Additional 20mEq KCl giving this evening as potassium low. Recheck BMP in am to monitor electrolytes and renal status. Check Mg due to low potassium. Check CBC due to anemia. Continue with OBS status. 01/31/17 Breathing feels about the same. Not having increased cough. Did sleep better last night with Mucinex stopped. Refused Zyprexa and Remeron last night. Nursing reported eating well. Pt did refuse bowel medications today as she had a good stool yesterday. No ab pain or nausea. Not feeling chest pressure or pain. Continue with BiPAP to help respiratory support and decrease CO2. Encourage deep breathing. Encourage patient on continued use of her psych medications - concern she will worsen without them. With pt refusing meds last, monitor for change in cognitive status. Continue with Diamox and BIPAP (at night) to help decrease CO2. Continue to wean down O2 - down to 3L currently. Use Lowest flow possible to keep sats 89-91% Recheck BMP in am to monitor electrolytes and renal status. Check CBC due to anemia. Dr Phillips's cardiac recommendations are Hospice. Continue with OBS status. 02/01/17 Pleural effusion with CHF -On Lasix BID (60 in am and 40 in afternoon) along with Diamox to help with contraction alkalosis -CO2 still elevated but improved from yesterday (46 to 43) -May need to drop the afternoon dose of Lasix b/c of climbing renal functions -cont O2 and BiPAP Discharge planning -Palliative care (and hospice) discussion would be beneficial -CM waiting to hear back from 2 facilities in [place] <Enid Otoole - 02/01/17 15:42> Progress Note-A&P (1) Dementia with behavioral disturbance Status: Acute Current Visit: No (2) A-fib Status: Chronic Current Visit: Yes (3) Chronic anticoagulation Status: Chronic Current Visit: Yes (4) Diastolic heart failure Status: Acute Current Visit: Yes (5) Mitral regurgitation Status: Chronic Current Visit: No (6) HTN (hypertension) Status: Chronic Current Visit: Yes (7) Respiratory failure Status: Acute Current Visit: Yes (8) Pulmonary hypertension Status: Chronic Current Visit: Yes (9) Pleural effusion, left Status: Chronic Current Visit: Yes <Chapito Phillips 02/04/17 13:50> (1) Diastolic heart failure Status: Acute Assessment and plan: Good U/O, symptoms improved. she does not lood fluid overloaded. lytes and renal function acceptable. cont lasix. With PCO2 40's - cont diamox. Current Visit: Yes (2) Respiratory failure Status: Acute Assessment and plan: On Bipap for PCO2 40's. O2 sats good. RN had to give ativan for pt to tolerate the Bipap. ( Current Visit: Yes (3) A-fib Status: Chronic Assessment and plan: chronic. Heart rate contorlled. cont cardizem 240mg and coreg. for rate control. cont eliquis for anticoagulation. Current Visit: Yes (4) Chronic anticoagulation Status: Chronic Assessment and plan: cont eliquis. Current Visit: Yes (5) HTN (hypertension) Status: Chronic Assessment and plan: Well controlled. cont coreg and cardizem (for HR control). Current Visit: Yes (6) Pleural effusion, left Status: Chronic Assessment and plan: no plans for thoracentesis at this time. cont diuresis. monitor with CXR. Current Visit: Yes (7) Pulmonary hypertension Status: Chronic Assessment and plan: cont diuresis Current Visit: Yes (8) Mitral regurgitation Status: Chronic Assessment and plan: s/p mitral clip Current Visit: No (9) Dementia with behavioral disturbance Status: Acute Current Visit: No <Enid Otoole 02/02/17 15:43> - Time Spent With Patient Total time spent is greater than 50% in coordination of care (as documented) at patient's floor/unit and/or counseling patient: <Chapito Phillips 02/04/17 13:50> Total time spent is greater than 50% in coordination of care (as documented) at patient's floor/unit and/or counseling patient: <Enid Otoole 02/01/17 15:42> less than 15 minutes <Enid Otoole 02/01/17 15:42> Sepsis Assessment - Evaluation Sepsis screening result: No Definite Risk <Enid Otoole 02/01/17 15:42> - Focused Exam Vital Signs Temp Pulse Resp BP Pulse Ox 02/01/17 15:00 97.6 F 81 20 98/63 97 02/01/17 08:02 18 98 02/01/17 08:00 90 02/01/17 07:52 96.8 F 96 22 114/69 100 <Enid Otoole - 02/01/17 15:42> Respiratory exam: Present: decreased breath sounds <Enid Otoole - 02/01/17 15:42> Cardiovascular exam: Present: irregularly irregular <Enid Otoole - 15:42>
[2017-02-01] MEDS: MIRTAZAPINE 15 MG TABLET PO SCH (21:33)
[2017-02-01] MEDS: OLANZapine 5 MG TABLET PO SCH (21:33)
[2017-02-02] MEDS: OMEPRAZOLE 20 MG CAPSULE PO SCH (06:11)
[2017-02-02] MEDS: DOCUSATE SODIUM 100 MG CAPSULE PO SCH ×2 (08:17→21:10)
[2017-02-02] MEDS: POLYETHYL GLYCOL 3350 17gm PACKET PO SCH (08:19)
[2017-02-02] MEDS: APIXABAN 5 MG TABLET PO SCH ×2 (08:23→21:11)
[2017-02-02] MEDS: CARVEDILOL 3.125 MG TABLET PO SCH ×2 (08:24→17:22)
[2017-02-02] MEDS: FUROSEMIDE 40 MG TABLET PO SCH ×2 (08:24→14:49)
[2017-02-02] MEDS: ASPIRIN *EC* 81 MG TABLET PO SCH (08:25)
[2017-02-02] MEDS: acetaZOLAMIDE SR 500 MG CAPSULE PO SCH ×2 (08:25→17:22)
[2017-02-02] MEDS: FERROUS SULFATE 324 MG TABLET PO SCH ×2 (09:56→14:48)
[2017-02-02] MEDS: ALBUTEROL/IPRATROPIUM 2.5mg-0.5mg/3ml NEB IH SCH ×2 (10:20→20:51)
[2017-02-02] MEDS: BUDESONIDE INH.SOLN 0.5mg/2ml NEB IH SCH ×2 (10:20→20:51)
--- NOTE | 2017-02-02 11:33 | Cardiology Progress Note ---
Subjective Principal diagnosis: atrial fibrillation, congestive heart failure <Shannan Lake 02/02/17 11:38> Interval history: Pam is laying in bed on exam, in no distress. States her breathing has been better. <Shannan Lake 02/02/17 11:38> Exam Vital signs: Temp Pulse Resp BP Pulse Ox 96.7 F L 93 20 119/75 99 02/04/17 07:38 02/04/17 08:00 02/04/17 07:38 02/04/17 07:38 02/04/17 07:38 <Chapito Phillips - 02/04/17 13:51> Temp Pulse Resp BP Pulse Ox 98.3 F 87 18 147/84 H 97 02/02/17 07:18 02/02/17 07:18 02/02/17 10:14 02/02/17 07:18 02/02/17 10:14 <Shannan Lake 02/02/17 11:38> - Constitutional no acute distress, thin, cooperative <Shannan Lake 02/02/17 11:38> - Routine HEENT Exam ENT: Present: mucous membranes moist <Shannan Lake 02/02/17 11:38> - Routine Respiratory Exam Present: diminished air movement. Absent: respiratory distress, wheezes < Shannan Lake 02/02/17 11:38> - Routine Cardiovascular Exam Present: RRR, no murmur. Absent: gallop, rubs <Shannan Lake 02/02/17 11:38 > - Routine Abdominal Exam Present: soft, non distended, non tender <Shannan Lake 02/02/17 11:38> - Routine Extremities Exam Present: edema <Shannan Lake 02/02/17 11:38> Comments: +1 edema to BLE, prominent in bilateral feet. <Shannan Lake 02/02/17 11:38> - Routine Neurological Exam Present: alert, normal speech <Shannan Lake 02/02/17 11:38> - Routine Psychiatric Exam Present: normal thought process, cooperative <Shannan Lake 02/02/17 11:38> Hospital Course Hospital course: Recommendation After examining the patient I agree with the above assessment. I am involved in the formulation of the patient's plan of care. <JacquelineChapito - 02/04/17 13:51> 01/29/17 17:30 Admit to observation status under the hospitalist service. Discussed with Pam's daughter, Rylee, - she's a bone plant supervisor and is requesting to give her iron mid-morning and mid-afternoon with a drink containing Vit C and a small snack. She would also like Dr. Phillips to see her, which is reasonable given her need for frequent diuresis. Acute on chronic respiratory failure: She has increasing bicarbonate and was started on Diamox. Currently she is on Lasix 60 mg in the morning and 40 mg in the afternoon. Prior to admission she was on the Lasix to 60 mg in the morning. Dr. Booth is recommending to keep her on the dry side. She has a chronic right pleural effusion and is status post thoracentesis in December. She is still requiring increased oxygen from her baseline. She has been using BiPAP every night, at least, as she can tolerate. She also has severe pulmonary hypertension and diastolic CHF. Will repeat labs tomorrow morning to follow up on chemistries, and bicarbonate level. Chest x-ray was repeated today - fluid status is improved but she has persistent right pleural effusion. Discussed with Dr. Phillips and with Dr. Culver. Discharge plans: Pam is looking into area intermediate care facilities. 01/30/17 Feels breathing improving-no with the respiratory distress she was having yesterday. No cough-would like to stop routine Tessalone Perles. No pain with breathing. Not reporting chest pressure or heaviness. Sleeping poorly-worries Mucinex affecting sleep (pt's daughters and granddaughters cannot sleep if taking Mucinex). Very resistant to the 'mood altering' medications started on [facility]-hard for her to grasp that the problems she attributes to the psych medication where present prior to her going to [facility]. Less swelling to legs - tolerating SCD. Eating well-feels appetite okay. Strength decreased. Will stop Mucinex due to potential insomnia problems with this medicine. Stop Tessalon Perles due to lack of cough. Stop melatonin - likely not doing anything for her sleep. Encourage patient on continued use of her psych medications - concern she will worsen without them. Continue with Diamox and BIPAP (at night) to help decrease CO2. Continue to wean down O2 - down to 3L currently. Additional 20mEq KCl giving this evening as potassium low. Recheck BMP in am to monitor electrolytes and renal status. Check Mg due to low potassium. Check CBC due to anemia. Continue with OBS status. 01/31/17 Breathing feels about the same. Not having increased cough. Did sleep better last night with Mucinex stopped. Refused Zyprexa and Remeron last night. Nursing reported eating well. Pt did refuse bowel medications today as she had a good stool yesterday. No ab pain or nausea. Not feeling chest pressure or pain. Continue with BiPAP to help respiratory support and decrease CO2. Encourage deep breathing. Encourage patient on continued use of her psych medications - concern she will worsen without them. With pt refusing meds last, monitor for change in cognitive status. Continue with Diamox and BIPAP (at night) to help decrease CO2. Continue to wean down O2 - down to 3L currently. Use Lowest flow possible to keep sats 89-91% Recheck BMP in am to monitor electrolytes and renal status. Check CBC due to anemia. Dr Phillips's cardiac recommendations are [facility]osp[facility]. Continue with OBS status. 02/01/17 Pleural effusion with CHF -On Lasix BID (60 in am and 40 in afternoon) along with Diamox to help with contraction alkalosis -CO2 still elevated but improved from yesterday (46 to 43) -May need to drop the afternoon dose of Lasix b/c of climbing renal functions -cont O2 and BiPAP Discharge planning -Palliative care (and hospice) discussion would be beneficial -CM waiting to hear back from 2 facilities in [place] <Shannan Lake - 02/02/17 11:38> Progress Note-A&P (1) Dementia with behavioral disturbance Status: Acute Current Visit: No (2) A-fib Status: Chronic Current Visit: Yes (3) Chronic anticoagulation Status: Chronic Current Visit: Yes (4) Diastolic heart failure Status: Acute Current Visit: Yes (5) Mitral regurgitation Status: Chronic Current Visit: No (6) HTN (hypertension) Status: Chronic Current Visit: Yes (7) Respiratory failure Status: Acute Current Visit: Yes (8) Pulmonary hypertension Status: Chronic Current Visit: Yes (9) Pleural effusion, left Status: Chronic Current Visit: Yes <Chapito Phillips - 02/04/17 13:51> (1) Dementia with behavioral disturbance Status: Acute Current Visit: No (2) A-fib Status: Chronic Current Visit: Yes (3) Chronic anticoagulation Status: Chronic Current Visit: Yes (4) Diastolic heart failure Status: Acute Current Visit: Yes (5) Mitral regurgitation Status: Chronic Current Visit: No (6) HTN (hypertension) Status: Chronic Current Visit: Yes (7) Respiratory failure Status: Acute Current Visit: Yes (8) Pulmonary hypertension Status: Chronic Current Visit: Yes (9) Pleural effusion, left Status: Chronic Current Visit: Yes <Ecton,Shannan R - 02/02/17 15:44> - Time Spent With Patient Total time spent is greater than 50% in coordination of care (as documented) at patient's floor/unit and/or counseling patient: <RosariovarshaChapito - 02/04/17 13:51> Total time spent is greater than 50% in coordination of care (as documented) at patient's floor/unit and/or counseling patient: <[place]on,Shannan R 02/02/17 11:38> less than 15 minutes <[place],Shannan R 02/02/17 15:44> Sepsis Assessment - Evaluation Sepsis screening result: No Definite Risk <[place],Shannan R - 02/02/17 11:38> - Focused Exam Vital Signs Temp Pulse Resp BP Pulse Ox 02/02/17 10:14 18 97 02/02/17 07:18 98.3 F 87 18 147/84 H 98 02/02/17 00:21 98.0 F 93 18 120/79 95 <[place],Shannan R 02/02/17 11:38> Respiratory exam: Present: decreased breath sounds <[place]on,Shannan R 02/02/17 11:38> Cardiovascular exam: Present: irregularly irregular <[place]on,Shannan R 02/02/17 11:38>
--- NOTE | 2017-02-02 14:38 | Progress Note ---
Subjective: F/U: Acute on chronic respiratory failure, Diastolic HF, Pulm HTN/Cor pulmonale Doing okay this afternoon. Ate well with lunch-reports portions very large and took time to eat it. Not feeling nausea or ab discomfort. Bowels are moving. Breathing feeling about the same, but not worsening. No cough/congestion. No chest pressure/pain. Hoping to go for a walk this afternoon-denies feeling dizzy with positional changes. Refused omeprazole this morning due to concern about her bone health (has osteoperosis and worries about potential fractures). Again, refused psych medications last night-not wanting them to affect her brain function. Objective Vital signs: Temp Pulse Resp BP Pulse Ox 98.3 F 87 18 147/84 H 97 02/02/17 07:18 02/02/17 07:18 02/02/17 10:14 02/02/17 07:18 02/02/17 10:14 Weight: 52 kg - Constitutional Present: no acute distress, thin, cooperative, other (Pleasant to speak with. ) . Absent: combative, agitated - Routine HEENT Exam Head: Present: normocephalic, atraumatic Eye: Present: EOMI, PERRL ENT: Present: mucous membranes moist - Routine Respiratory Exam Present: decreased breath sounds, prolonged expiratory phase, distant breath sounds, diminished air movement. Absent: accessory muscle use, respiratory distress, rhonchi, wheezes, crackles - Routine Cardiovascular Exam Present: irregular rhythm, irregularly irregular - Routine Abdominal Exam Present: soft, normoactive bowel sounds, non distended, non tender - Routine Extremities Exam Present: edema (+1-2 LE ) Comments: SCD in place. - Routine Musculoskeletal Exam Musculoskeletal: no clubbing or cyanosis - Routine Skin Exam Present: intact, dry, warm. Absent: mottling - Routine Neurological Exam Present: alert, CN II-XII intact, vision grossly intact, hearing grossly intact. Absent: motor deficit - Routine Psychiatric Exam Present: normal affect, normal thought process. Absent: anxious, agitated Results - Labs CBC & Chem 7: 02/02/17 10:00 02/02/17 10:00 - ABG Interpretation ABG results: 01/31/17 12:15 ABG pH 7.390 ABG pCO2 80 H* ABG pO2 52 L ABG HCO3 48 H ABG Total CO2 50.9 H ABG O2 Saturation 86.0 L ABG Base Excess 19.3 H Assessment and Plan (1) Respiratory failure Current visit: Yes Status: Acute (2) Pleural effusion, left Current visit: Yes Status: Chronic (3) Coronary artery disease Current visit: Yes Status: Chronic (4) A-fib Current visit: Yes Status: Chronic (5) Chronic anticoagulation Current visit: Yes Status: Chronic (6) Diastolic heart failure Current visit: Yes Status: Acute (7) HTN (hypertension) Current visit: Yes Status: Chronic (8) COPD (chronic obstructive pulmonary disease) Current visit: Yes Status: Acute (9) Pulmonary hypertension Current visit: Yes Status: Chronic (10) Anemia Current visit: Yes Status: Acute (11) Hx of pleural effusion Current visit: No Status: Acute DVT Prophylaxis: SCD's Assessment and Plan: Continue with current CV medications-pt appears to be adequately compensated with them. Additional oral KCl given today-will move her potassium to BIDWM as potassium will decrease when frequency changed to daily. Will stop omeprazole due to patient's reluctance for this in light of her bone health. Discussed about use of famotidine, but pt declines as not having any stomach issues. Today is day 3 without her psych medications - overall cognitive status seams stable (not with increased agitation or restlessness) Will monitor her psychiatric status without these medications. Continue O2 - needs getting close to baseline. Encourage ambulation to help strength. CM looking into care facilities post discharge. Recheck BMP in am to monitor CO2, creatinine and potassium in light of medication use. Case discussed with CM. Time spent with pt care 25 minutes. Sepsis Assessment - Evaluation Sepsis screening result: No Definite Risk Hospital Course Summary Disclaimer: The visit summary below is not to be considered part of the above Progress Note. Hospital Course: 01/29/17 17:30 Admit to observation status under the hospitalist service. Discussed with Pam's daughter, Rylee, - she's a store protection specialist and is requesting to give her iron mid-morning and mid-afternoon with a drink containing Vit C and a small snack. She would also like Dr. Phillips to see her, which is reasonable given her need for frequent diuresis. Acute on chronic respiratory failure: She has increasing bicarbonate and was started on Diamox. Currently she is on Lasix 60 mg in the morning and 40 mg in the afternoon. Prior to admission she was on the Lasix to 60 mg in the morning. Dr. Booth is recommending to keep her on the dry side. She has a chronic right pleural effusion and is status post thoracentesis in December. She is still requiring increased oxygen from her baseline. She has been using BiPAP every night, at least, as she can tolerate. She also has severe pulmonary hypertension and diastolic CHF. Will repeat labs tomorrow morning to follow up on chemistries, and bicarbonate level. Chest x-ray was repeated today - fluid status is improved but she has persistent right pleural effusion. Discussed with Dr. Phillips and with Dr. Culver. Discharge plans: Pam is looking into area extermination inspector care facilities. 01/30/17 Feels breathing improving-no with the respiratory distress she was having yesterday. No cough-would like to stop routine Tessalone Perles. No pain with breathing. Not reporting chest pressure or heaviness. Sleeping poorly-worries Mucinex affecting sleep (pt's daughters and granddaughters cannot sleep if taking Mucinex). Very resistant to the 'mood altering' medications started on [facility]-hard for her to grasp that the problems she attributes to the psych medication where present prior to her going to [facility]. Less swelling to legs - tolerating SCD. Eating well-feels appetite okay. Strength decreased. Will stop Mucinex due to potential insomnia problems with this medicine. Stop Tessalon Perles due to lack of cough. Stop melatonin - likely not doing anything for her sleep. Encourage patient on continued use of her psych medications - concern she will worsen without them. Continue with Diamox and BIPAP (at night) to help decrease CO2. Continue to wean down O2 - down to 3L currently. Additional 20mEq KCl giving this evening as potassium low. Recheck BMP in am to monitor electrolytes and renal status. Check Mg due to low potassium. Check CBC due to anemia. Continue with OBS status. 01/31/17 Breathing feels about the same. Not having increased cough. Did sleep better last night with Mucinex stopped. Refused Zyprexa and Remeron last night. Nursing reported eating well. Pt did refuse bowel medications today as she had a good stool yesterday. No ab pain or nausea. Not feeling chest pressure or pain. Continue with BiPAP to help respiratory support and decrease CO2. Encourage deep breathing. Encourage patient on continued use of her psych medications - concern she will worsen without them. With pt refusing meds last, monitor for change in cognitive status. Continue with Diamox and BIPAP (at night) to help decrease CO2. Continue to wean down O2 - down to 3L currently. Use Lowest flow possible to keep sats 89-91% Recheck BMP in am to monitor electrolytes and renal status. Check CBC due to anemia. Dr Phillips's cardiac recommendations are Hospice. Continue with OBS status. 02/01/17 Pleural effusion with CHF -On Lasix BID (60 in am and 40 in afternoon) along with Diamox to help with contraction alkalosis -CO2 still elevated but improved from yesterday (46 to 43) -May need to drop the afternoon dose of Lasix b/c of climbing renal functions -cont O2 and BiPAP Discharge planning -Palliative care (and hospice) discussion would be beneficial -CM waiting to hear back from 2 facilities in [place] 02/02/17 Doing okay this afternoon. Ate well with lunch-reports portions very large and took time to eat it. Not feeling nausea or ab discomfort. Bowels are moving. Breathing feeling about the same, but not worsening. No cough/congestion. No chest pressure/pain. Hoping to go for a walk this afternoon-denies feeling dizzy with positional changes. Refused omeprazole this morning due to concern about her bone health (has osteoperosis and worries about potential fractures). Again, refused psych medications last night-not wanting them to affect her brain function. Continue with current CV medications-pt appears to be adequately compensated with them. Additional oral KCl given today-will move her potassium to BIDWM as potassium will decrease when frequency changed to daily. Will stop omeprazole due to patient's reluctance for this in light of her bone health. Discussed about use of famotidine, but pt declines as not having any stomach issues. Today is day 3 without her psych medications - overall cognitive status seams stable (not with increased agitation or restlessness) Will monitor her psychiatric status without these medications. Continue O2 - needs getting close to baseline. Encourage ambulation to help strength. CM looking into care facilities post discharge. Recheck BMP in am to monitor CO2, creatinine and potassium in light of medication use.
[2017-02-02] MEDS: MIRTAZAPINE 15 MG TABLET PO SCH (21:10)
[2017-02-02] MEDS: OLANZapine 5 MG TABLET PO SCH (21:11)
[2017-02-03] MEDS: FUROSEMIDE 40 MG TABLET PO SCH ×2 (08:16→14:52)
[2017-02-03] MEDS: CARVEDILOL 3.125 MG TABLET PO SCH ×2 (08:17→17:00)
[2017-02-03] MEDS: APIXABAN 5 MG TABLET PO SCH ×2 (08:17→22:23)
[2017-02-03] MEDS: DOCUSATE SODIUM 100 MG CAPSULE PO SCH ×2 (08:22→22:21)
[2017-02-03] MEDS: acetaZOLAMIDE SR 500 MG CAPSULE PO SCH (08:24)
[2017-02-03] MEDS: POLYETHYL GLYCOL 3350 17gm PACKET PO SCH (09:19)
[2017-02-03] MEDS: ASPIRIN *EC* 81 MG TABLET PO SCH (09:19)
[2017-02-03] MEDS: FERROUS SULFATE 324 MG TABLET PO SCH ×2 (09:54→14:52)
[2017-02-03] MEDS: BUDESONIDE INH.SOLN 0.5mg/2ml NEB IH SCH ×2 (10:17→20:49)
[2017-02-03] MEDS: ALBUTEROL/IPRATROPIUM 2.5mg-0.5mg/3ml NEB IH SCH ×2 (10:18→20:49)
--- NOTE | 2017-02-03 11:00 | Cardiology Progress Note ---
Subjective Principal diagnosis: atrial fibrillation, congestive heart failure <Shannan Lake 02/03/17 11:02> Interval history: Pam is sleeping in bed on exam, in no distress easy to wake. States her breathing has been better. States still has some edema to BLE but has improved. <Shannan Lake 03/11/17 13:17> Exam Vital signs: Temperature 96.7 F L 02/04/17 07:38 Pulse Rate 93 02/04/17 08:00 Respiratory Rate 20 02/04/17 07:38 Blood Pressure 119/75 02/04/17 07:38 Pulse Oximetry 99 02/04/17 07:38 Oxygen Delivery Method Nasal Cannula Oxygen Flow Rate 2 Fraction of Inspired Oxygen 30 SaO2/FiO2 Ratio 326 <Chapito Phillips - 03/11/17 13:18> Temp Pulse Resp BP Pulse Ox 96.3 F L 92 24 118/82 98 02/03/17 07:41 02/03/17 07:41 02/03/17 10:18 02/03/17 07:41 02/03/17 10:18 <Shannan Lake 02/03/17 11:02> - Constitutional no acute distress, cooperative <Shannan Lake 02/03/17 11:02> - Routine HEENT Exam ENT: Present: mucous membranes moist <Shannan Lake 02/03/17 11:02> - Routine Respiratory Exam Present: decreased breath sounds, diminished air movement. Absent: accessory muscle use, dyspnea, respiratory distress, wheezes <Shannan Lake 02/03/17 11:02> - Routine Cardiovascular Exam Present: irregular rhythm. Absent: murmur, gallop, rubs, JVD <Shannan Lake 02/03/17 11:02> - Routine Abdominal Exam Present: soft, non distended <Shannan Lake 02/03/17 11:02> - Routine Extremities Exam Present: edema, non tender, pulses intact <Shannan Lake 02/03/17 11:02> - Routine Skin Exam Present: intact, dry, warm. Absent: wounds, rash <Shannan Lake 02/03/17 11 :02> - Routine Neurological Exam Present: alert, normal speech <Shannan Lake 02/03/17 11:02> - Routine Psychiatric Exam Present: normal affect, cooperative <Shannan Lake 02/03/17 11:02> Progress Note-A&P (1) Dementia with behavioral disturbance Status: Acute (2) A-fib Status: Chronic (3) Chronic anticoagulation Status: Chronic (4) Diastolic heart failure Status: Acute (5) Mitral regurgitation Status: Chronic (6) HTN (hypertension) Status: Chronic (7) Respiratory failure Status: Acute (8) Pulmonary hypertension Status: Chronic (9) Pleural effusion, left Status: Chronic <Chapito Phillips 03/11/17 13:18> (1) Dementia with behavioral disturbance Status: Acute (2) A-fib Status: Chronic Assessment and plan: Continuous eliquis for anticoagulant. (3) Chronic anticoagulation Status: Chronic (4) Diastolic heart failure Status: Acute Assessment and plan: Lasix 60mg QAM and 40mg QPM + diamox. Con't coreg. (5) Mitral regurgitation Status: Chronic (6) HTN (hypertension) Status: Chronic (7) Respiratory failure Status: Acute (8) Pulmonary hypertension Status: Chronic (9) Pleural effusion, left Status: Chronic Assessment and plan: Con't diuretics if patient cooperates. Con't O2 if needed. Respiratory status improved. <Shannan Lake 03/11/17 13:14> - Time Spent With Patient Total time spent is greater than 50% in coordination of care (as documented) at patient's floor/unit and/or counseling patient: <Chapito Phillips 03/11/17 13:18> Total time spent is greater than 50% in coordination of care (as documented) at patient's floor/unit and/or counseling patient: <Shannan Lake 02/03/17 11:02> 25 - 35 minutes <Shannan Lake 03/11/17 13:17> - Attestation Attestation Narrative: Recommendation After examining the patient I agree with the above assessment. I am involved in the formulation of the patient's plan of care. <Chapito Phillips 03/11/17 13:18> Sepsis Assessment - Evaluation Sepsis screening result: No Definite Risk <Shannan Lake 02/03/17 11:02> Hospital Course Summary Disclaimer: The visit summary below is not to be considered part of the above Progress Note. <Chapito Phillips - 03/11/17 13:18>
--- NOTE | 2017-02-03 14:11 | Progress Note ---
Subjective: Pt states she is feeling well today and wants to ambulate more. Spoke with nurse who took pt for a short walk. Currently working on placement. Objective Vital signs: Temp Pulse Resp BP Pulse Ox 96.3 F L 92 24 118/82 98 02/03/17 07:41 02/03/17 07:41 02/03/17 10:18 02/03/17 07:41 02/03/17 10:18 Weight: 52.1 kg - Constitutional Present: no acute distress, cooperative - Routine HEENT Exam Head: Present: normocephalic Eye: Present: EOMI, PERRL ENT: Present: mucous membranes moist - Routine Cardiovascular Exam Present: RRR - Routine Abdominal Exam Present: soft, normoactive bowel sounds, non distended, non tender - Routine Extremities Exam Absent: cyanosis, clubbing, edema - Routine Neurological Exam Present: alert - Routine Lymphatic Exam Lymphatic: Absent: adenopathy - Routine Psychiatric Exam Present: normal affect, cooperative Results - Labs CBC & Chem 7: 02/03/17 11:54 02/03/17 11:54 - ABG Interpretation ABG results: 01/31/17 12:15 ABG pH 7.390 ABG pCO2 80 H* ABG pO2 52 L ABG HCO3 48 H ABG Total CO2 50.9 H ABG O2 Saturation 86.0 L ABG Base Excess 19.3 H Assessment and Plan (1) Hx of pleural effusion Current visit: No Status: Acute (2) Coronary artery disease Current visit: Yes Status: Chronic (3) A-fib Current visit: Yes Status: Chronic (4) Chronic anticoagulation Current visit: Yes Status: Chronic (5) Diastolic heart failure Current visit: Yes Status: Acute (6) Anemia Current visit: Yes Status: Acute (7) HTN (hypertension) Current visit: Yes Status: Chronic (8) Respiratory failure Current visit: Yes Status: Acute (9) Pulmonary hypertension Current visit: Yes Status: Chronic (10) COPD (chronic obstructive pulmonary disease) Current visit: Yes Status: Acute (11) Pleural effusion, left Current visit: Yes Status: Chronic Assessment and Plan: Ms Cruz is a 86 YO female with multiple cardiac problems, including MR - A fib - HF, HTN, dementia who is stable at present and waiting for placement. She has some behavioral issues and has been refusing to take her medications. She has respiratory failure and uses a Bipap at night. CARDIOVASCULAR ASSESSMENT 1) Mitral regurgitation - atrial fibrillation - on anticoagulation. - Pt has had multple CVA' and has H.O Vascular dementia. 2) Pulmonary HTN - Bilateral pleural effussions, respiratory failure. - Check decubitus film for size of effussions and ? of tap 3) Dementia with behavioral disturbances, currently pt appears calm and cooperative. Sepsis Assessment - Evaluation Sepsis screening result: No Definite Risk Hospital Course Summary Disclaimer: The visit summary below is not to be considered part of the above Progress Note. Hospital Course: 01/29/17 17:30 Admit to observation status under the hospitalist service. Discussed with Pam's daughter, Rylee, - she's a detective sergeant and is requesting to give her iron mid-morning and mid-afternoon with a drink containing Vit C and a small snack. She would also like Dr. Phillips to see her, which is reasonable given her need for frequent diuresis. Acute on chronic respiratory failure: She has increasing bicarbonate and was started on Diamox. Currently she is on Lasix 60 mg in the morning and 40 mg in the afternoon. Prior to admission she was on the Lasix to 60 mg in the morning. Dr. Booth is recommending to keep her on the dry side. She has a chronic right pleural effusion and is status post thoracentesis in December. She is still requiring increased oxygen from her baseline. She has been using BiPAP every night, at least, as she can tolerate. She also has severe pulmonary hypertension and diastolic CHF. Will repeat labs tomorrow morning to follow up on chemistries, and bicarbonate level. Chest x-ray was repeated today - fluid status is improved but she has persistent right pleural effusion. Discussed with Dr. Phillips and with Dr. Culver. Discharge plans: Pam is looking into [facility] care facilities. 01/30/17 Feels breathing improving-no with the respiratory distress she was having yesterday. No cough-would like to stop routine Tessalone Perles. No pain with breathing. Not reporting chest pressure or heaviness. Sleeping poorly-worries Mucinex affecting sleep (pt's daughters and granddaughters cannot sleep if taking Mucinex). Very resistant to the 'mood altering' medications started on [facility]-hard for her to grasp that the problems she attributes to the psych medication where present prior to her going to [facility]. Less swelling to legs - tolerating SCD. Eating well-feels appetite okay. Strength decreased. Will stop Mucinex due to potential insomnia problems with this medicine. Stop Tessalon Perles due to lack of cough. Stop melatonin - likely not doing anything for her sleep. Encourage patient on continued use of her psych medications - concern she will worsen without them. Continue with Diamox and BIPAP (at night) to help decrease CO2. Continue to wean down O2 - down to 3L currently. Additional 20mEq KCl giving this evening as potassium low. Recheck BMP in am to monitor electrolytes and renal status. Check Mg due to low potassium. Check CBC due to anemia. Continue with OBS status. 01/31/17 Breathing feels about the same. Not having increased cough. Did sleep better last night with Mucinex stopped. Refused Zyprexa and Remeron last night. Nursing reported eating well. Pt did refuse bowel medications today as she had a good stool yesterday. No ab pain or nausea. Not feeling chest pressure or pain. Continue with BiPAP to help respiratory support and decrease CO2. Encourage deep breathing. Encourage patient on continued use of her psych medications - concern she will worsen without them. With pt refusing meds last, monitor for change in cognitive status. Continue with Diamox and BIPAP (at night) to help decrease CO2. Continue to wean down O2 - down to 3L currently. Use Lowest flow possible to keep sats 89-91% Recheck BMP in am to monitor electrolytes and renal status. Check CBC due to anemia. Dr Phillips's cardiac recommendations are Hospice. Continue with OBS status. 02/01/17 Pleural effusion with CHF -On Lasix BID (60 in am and 40 in afternoon) along with Diamox to help with contraction alkalosis -CO2 still elevated but improved from yesterday (46 to 43) -May need to drop the afternoon dose of Lasix b/c of climbing renal functions -cont O2 and BiPAP Discharge planning -Palliative care (and hospice) discussion would be beneficial -CM waiting to hear back from 2 facilities in [place]
[2017-02-03] MEDS: OLANZapine 5 MG TABLET PO SCH (22:21)
[2017-02-03] MEDS: MIRTAZAPINE 15 MG TABLET PO SCH (22:23)
[2017-02-04] MEDS: ALBUTEROL/IPRATROPIUM 2.5mg-0.5mg/3ml NEB IH SCH (07:13)
[2017-02-04] MEDS: BUDESONIDE INH.SOLN 0.5mg/2ml NEB IH SCH (07:14)
[2017-02-04 07:41] VITALS: BP 119/75; RESP 20; TEMP 96.7; O2SAT 99
--- NOTE | 2017-02-04 08:13 | XRay Report ---
Indication: Determine size of effusions PROCEDURE: XR chest w decubitus: Encounter: Initial Comparison: January 31, 2017 Findings: Bilateral pleural effusions are slightly smaller on today's study with continued lower lobe consolidation right greater than left. No pneumothorax. Heart size and mediastinal contours are stable. Pulmonary vascular congestion has improved. The decubitus views show freely layering bilateral effusions. This has a depth of 3.7 cm on the right and only 0.7 cm on the left. Impression: Decreasing freely layering pleural effusions. .
[2017-02-04] MEDS: DOCUSATE SODIUM 100 MG CAPSULE PO SCH (08:21)
[2017-02-04] MEDS: FUROSEMIDE 40 MG TABLET PO SCH ×2 (08:22→13:20)
[2017-02-04] MEDS: ASPIRIN *EC* 81 MG TABLET PO SCH (08:23)
[2017-02-04] MEDS: acetaZOLAMIDE SR 500 MG CAPSULE PO SCH (08:23)
[2017-02-04] MEDS: CARVEDILOL 3.125 MG TABLET PO SCH (08:23)
[2017-02-04] MEDS: FERROUS SULFATE 324 MG TABLET PO SCH ×2 (08:25→09:47)
[2017-02-04 08:29] VITALS: PULSE 93
[2017-02-04] MEDS: POLYETHYL GLYCOL 3350 17gm PACKET PO SCH (08:31)
[2017-02-04] MEDS: APIXABAN 5 MG TABLET PO SCH (08:35)
--- NOTE | 2017-02-04 10:52 | Discharge Instructions ---
Discharge Plan - [facility] Rec/Dispo [facility] Instructions: Heart Failure (GEN), A-fib (Atrial Fibrillation) (GEN) Prescriptions: New Furosemide [Lasix] 40 mg PO 1400 Acetaminophen [Tylenol] 650 mg PO Q4H PRN PRN Reason: Pain Acetazolamide [Diamox Sequels] 500 mg PO DAILY Continue Furosemide [Lasix] 60 mg PO DAILY Omeprazole [Prilosec] 1 cap PO ACB Polyethylene Glycol 3350 [Miralax] 17 gm PO DAILY Albuterol/Ipratropium [Duoneb] 3 ml IH BID Docusate Sodium [Colace] 100 mg PO BID Apixaban [Eliquis] 2.5 mg PO BID Cholecalciferol [Vit. D-3] 1,000 unit PO DAILY Potassium Chloride 20 meq PO BID Benzonatate [Tessalon Perles] 100 mg PO BID Trolamine Salicylate 10% Cream [Aspercreme] 1 applic TOP Q8H PRN PRN Reason: Pain Mirtazapine [Remeron] 22.5 mg PO HS #45 tab OLANZapine [Zyprexa] 7.5 mg PO HS #45 tab dilTIAZem HCl [Diltiazem 24Hr Cd] 240 mg PO DAILY Budesonide Inhalation [Pulmicort Inhalation] 0.5 mg IH BID Aspirin [Aspirin EC] 81 mg PO DAILY Ferrous Sulfate [Iron] 325 mg PO BID guaiFENesin [Mucinex] 600 mg PO BID Bisacodyl Supp [Dulcolax] 10 mg RECTALLY DAILY PRN PRN Reason: Constipation Milk of Magnesia [Mom] 30 ml PO PRN PRN PRN Reason: Constipation Melatonin 3 mg PO HS #0 Carvedilol [Coreg] 1 tab PO BIDWM No Action Albuterol/Ipratropium [Duoneb] 3 ml IH Q2H PRN PRN Reason: Shortness Of Air Acetaminophen 650 mg PO Q4H PRN PRN Reason: Pain Furosemide [Lasix] 1 tab PO DAILY Discharge Instructions/Outpatient Orders: Final Provider Discharge Instructions Time Frame: 2 Weeks, Location: Determined By Patient - Disposition 03 To [facility] ([facility])
--- NOTE | 2017-02-04 11:18 | Extended Care Facility Orders ---
Admission Orders Admit to:: Retirement Allergies/Adverse Reactions: Allergies No Known Drug Allergies Allergy (Verified 01/29/17 13:10) No Known Adverse Drug Reactions Adverse Reaction (Verified 01/29/17 13:11) Admitting Diagnosis: CHF,A-fib acute on chronic resp failure Admitting Physician: Matthew Culver MD Attending Physician: Matthew Culver MD Code Status: Full Code Anticiapted Length of Stay: 30 days or less Rehab Potential: fair Rehab Prognosis: fair Diet: 01/29/17 Breakfast Cardiac Diet [DIET] Sodium Restriction: 2GRAM Fluid Restriction: NOREST Fat Content: LOW Caffeine Allowed?: YESCAFF Food Consistency: REGCON Fluid Consistency: REGLIQU May use Facility Protocol or Standing Orders: Yes May have flu vaccine: Yes Evaluations/Treatment: Speech, PT, OT Retirement Certification: I certify that SNF services are required to be given on an Inpatient basis because of the patients need for fci care on a continuing basis for the condition(s) for which he/she received inpatient hospital services prior to his/her transfer to the SNF. SNF inpatient care is necessary for the following reasons Indication for Retirement: Other (PT needs PT/OT and is very weak and SOB needs bipap) - Additional Information In Event of Arrest: Start CPR,call 911,send patient to the ER (Pt stated when questions "I will have to think a little more about that - I am very sleepy") Resident is Aware of Diagnosis: Yes Additional Orders: Please keep pt on Bipap at night - with following settings - rate is 16, FIO2 - 40%, I/E pressures 16/5 cm H2O
--- NOTE | 2017-02-04 11:20 | Discharge Instructions ---
Discharge Plan - [facility] Rec/Dispo [facility] Instructions: Heart Failure (GEN), A-fib (Atrial Fibrillation) (GEN) Prescriptions: New Furosemide [Lasix] 40 mg PO 1400 Acetaminophen [Tylenol] 650 mg PO Q4H PRN PRN Reason: Pain Acetazolamide [Diamox Sequels] 500 mg PO DAILY Continue Furosemide [Lasix] 60 mg PO DAILY Omeprazole [Prilosec] 1 cap PO ACB Polyethylene Glycol 3350 [Miralax] 17 gm PO DAILY Albuterol/Ipratropium [Duoneb] 3 ml IH BID Docusate Sodium [Colace] 100 mg PO BID Apixaban [Eliquis] 2.5 mg PO BID Cholecalciferol [Vit. D-3] 1,000 unit PO DAILY Potassium Chloride 20 meq PO BID Benzonatate [Tessalon Perles] 100 mg PO BID Trolamine Salicylate 10% Cream [Aspercreme] 1 applic TOP Q8H PRN PRN Reason: Pain Mirtazapine [Remeron] 22.5 mg PO HS #45 tab OLANZapine [Zyprexa] 7.5 mg PO HS #45 tab dilTIAZem HCl [Diltiazem 24Hr Cd] 240 mg PO DAILY Budesonide Inhalation [Pulmicort Inhalation] 0.5 mg IH BID Aspirin [Aspirin EC] 81 mg PO DAILY Ferrous Sulfate [Iron] 325 mg PO BID guaiFENesin [Mucinex] 600 mg PO BID Bisacodyl Supp [Dulcolax] 10 mg RECTALLY DAILY PRN PRN Reason: Constipation Milk of Magnesia [Mom] 30 ml PO PRN PRN PRN Reason: Constipation Melatonin 3 mg PO HS #0 Carvedilol [Coreg] 1 tab PO BIDWM No Action Albuterol/Ipratropium [Duoneb] 3 ml IH Q2H PRN PRN Reason: Shortness Of Air Acetaminophen 650 mg PO Q4H PRN PRN Reason: Pain Furosemide [Lasix] 1 tab PO DAILY Discharge Instructions/Outpatient Orders: Final Provider Discharge Instructions Time Frame: 2 Weeks, Location: Determined By Patient - Disposition 03 To [facility] ([facility])
--- NOTE | 2017-02-04 11:29 | Discharge Summary ---
Discharge Information Date of admission: 01/31/17 10:38 Attending Physician: Matthew Culver MD Primary care physician: Jose R Fatima MD Consults: 01/29/17 17:09 Physician Consult [CONS] Routine Consulting Provider: Chapito Phillips Reason For Exam: chf Ordering Provider has Notified [facility]: Yes 02/01/17 15:48 Doctor [Physician Consult] [CONS] Routine Consulting Provider: Megan Farah Reason For Exam: CONTINUED CARE Ordering Provider has Notified [employer]: Yes Comment: CONTINUED CARE 02/01/17 15:56 Doctor [Physician Consult] [CONS] Routine Consulting Provider: Megan Farah Reason For Exam: CONTINUED CARE Ordering Provider has Notified [employer]: Yes - Discharge Diagnosis (1) Hx of pleural effusion Status: Acute (2) Coronary artery disease Status: Chronic (3) A-fib Status: Chronic (4) Chronic anticoagulation Status: Chronic (5) Diastolic heart failure Status: Acute (6) Anemia Status: Acute (7) HTN (hypertension) Status: Chronic (8) Respiratory failure Status: Acute (9) Pulmonary hypertension Status: Chronic (10) COPD (chronic obstructive pulmonary disease) Status: Acute (11) Pleural effusion, left Status: Chronic - Laboratory Labs: 02/04/17 04:30 02/04/17 04:30 History of Present Illness HPI: Pam Baker is an 86-year-old woman who was transferred to [facility] from [facility] for ongoing treatment of her pleural effusion and acute on chronic respiratory failure. She was initially admitted to [facility] from a rehabilitation facility on for increased confusion, agitation and impulsiveness and visual hallucinations. She has a history of mitraclip x2 on 11/27/2016 followed by acute admission for acute CHF in December, at which time she underwent right thoracentesis on 12/28/[address] Witt[address] Elder Counselor, Dr. Booth. While she was in [facility]. The hospitalist service was consulted for medical management. She also has a history of A. fib and is anticoagulated on Eliquis. Chest x-ray on 01/19/17 showed moderate CHF with pleural effusion. Her weight began to slowly increase and by 01/22/17. She was requiring 10 L of oxygen and BiPAP support during the day (typically only used at night, when she tolerated it). She was diuresed with IV Bumex and over the following few days, her respiratory status improved. We also felt that she was possibly having COPD exacerbation and she was started on a short course of oral steroids. Serial ABGs continued to show improvement in respiratory acidosis. An extra dose of Lasix was added in the afternoon. We also increased her dose of Cardizem to 240 mg daily because her A. fib rate was frequently increasing above 120, and prior to discharge low-dose Coreg was also started. In reviewing records from [facility] and in discussion with Dr. Booth, care at this point is largely palliative in nature and additional thoracentesis would create additional risk and were not recommended. Dr. Booth also reported that likely she will need to be kept on the dry side. Labs showed an increase in bicarbonate and she was started on Diamox. An echocardiogram was done, which showed a preserved EF, but significant pulmonary hypertension. On 01/29/17, she was ready for discharge from [facility], however, her respiratory status took a turn for the worse. Staff report that she was "rashid" in color. She was on 4 L of oxygen earlier in the day, but her sats were in the mid 80s, prompting them to increase it to 5 L. She was no longer able to complete full sentences and was only able to speak a few words at a time without pausing for breath. She was very drowsy and not as alert, which was a change in her mentation. Following discussions with the hospitalist physician and the patient's daughter, Rylee, we decided to continue medical treatment at [facility]. She was admitted to observation status. In repeat assessment later in the day, she was more alert and her color had improved. She was still having some conversational dyspnea but her mental status was better. Hospital Course Hospital course: On 01/29 pt was admitted to observation status under the hospitalist service. Pt ABG suggested acute on chronic respiratory failure, she had increasing bicarbonate and was started on Diamox. She has a chronic right pleural effusion and is status post thoracentesis in December. Pt remained on O2 during the day and with Bipap at night. She also has severe pulmonary hypertension and diastolic CHF. Pt was kept on close observation on telemetry with Bipap at night and improved gradually. She is now able to ambulate, but remains pretty frail and will be going to [facility] for rehab, she then may be able to go to assisted living. Over the last several days pt was refusing some of her medications (Remeron and zyprexa) but has remained behaviorally stable. A repeat CXR showed bilateral pleural effussions, that were stable. Pt stabilized and is ready to go to [facility] today. I had an extensive discussion with pt daughter - per her description it appears this pt was placed on Zyprexa and Remeron for delirium after a surgical procedure, which has resolved at this time. Pt is much better without these meds so will D/C her off these. Her BIPAP settings are Rate - 16 FIO2 - 40% I/E pressures 16/5 cm H2O CXR done today to assess effussions "............................................. Comparison: January 31, 2017 Findings: Bilateral pleural effusions are slightly smaller on today's study with continued lower lobe consolidation right greater than left. No pneumothorax. Heart size and mediastinal contours are stable. Pulmonary vascular congestion has improved. The decubitus views show freely layering bilateral effusions. This has a depth of 3.7 cm on the right and only 0.7 cm on the left. Impression: Decreasing freely layering pleural effusions. ............................................................." Discharge Plan - Med Rec/Dispo [facility] Instructions: Heart Failure (GEN), A-fib (Atrial Fibrillation) (GEN), COPD (Chronic Obstructive Pulmonary Disease) (GEN), Chronic Respiratory Failure (DC) Prescriptions: New Furosemide [Lasix] 40 mg PO 1400 Acetaminophen [Tylenol] 650 mg PO Q4H PRN PRN Reason: Pain Acetazolamide [Diamox Sequels] 500 mg PO DAILY Continue Furosemide [Lasix] 60 mg PO DAILY Omeprazole [Prilosec] 1 cap PO ACB Polyethylene Glycol 3350 [Miralax] 17 gm PO DAILY Albuterol/Ipratropium [Duoneb] 3 ml IH BID Docusate Sodium [Colace] 100 mg PO BID Apixaban [Eliquis] 2.5 mg PO BID Cholecalciferol [Vit. D-3] 1,000 unit PO DAILY Potassium Chloride 20 meq PO BID Benzonatate [Tessalon Perles] 100 mg PO BID Trolamine Salicylate 10% Cream [Aspercreme] 1 applic TOP Q8H PRN PRN Reason: Pain Mirtazapine [Remeron] 22.5 mg PO HS #45 tab OLANZapine [Zyprexa] 7.5 mg PO HS #45 tab dilTIAZem HCl [Diltiazem 24Hr Cd] 240 mg PO DAILY Budesonide Inhalation [Pulmicort Inhalation] 0.5 mg IH BID Aspirin [Aspirin EC] 81 mg PO DAILY Ferrous Sulfate [Iron] 325 mg PO BID guaiFENesin [Mucinex] 600 mg PO BID Bisacodyl Supp [Dulcolax] 10 mg RECTALLY DAILY PRN PRN Reason: Constipation Milk of Magnesia [Mom] 30 ml PO PRN PRN PRN Reason: Constipation Melatonin 3 mg PO HS #0 Carvedilol [Coreg] 1 tab PO BIDWM No Action Albuterol/Ipratropium [Duoneb] 3 ml IH Q2H PRN PRN Reason: Shortness Of Air Acetaminophen 650 mg PO Q4H PRN PRN Reason: Pain Furosemide [Lasix] 1 tab PO DAILY Discharge Instructions/Outpatient Orders: Final Provider Discharge Instructions Time Frame: 2 Weeks, Location: Determined By Patient - Disposition 03 [facility] ([facility])
== END 2017-02-04 14:00 | DRG 186 ==
LOC: PREOBSVTOIN 15:27 → INTOOBSV 15:57 → MED 15:57
PROVIDERS: ADMIT Hospitalist; ATTEND Hospitalist